=== PATIENT | female | born 1955 | race Caucasian/White ===

== ENCOUNTER → 2017-01-24 | Outpatient (CLI) | payer BC ==
[~2017-01-24] MED LIST: CALC-722 PO; HYDR1TAB PO; LVT.1T PO
[2017-01-24 11:40] LABS: THYROID STIMULATING HORMONE 0.02 UIU/ML (0.35-4.94)
== END ==
LOC: LAB 10:44
PROVIDERS: ATTEND Family Medicine
DX: E03.9 Hypothyroidism, unspecified (principal)
CPT/HCPCS: 36415; 84439; 84443

== ENCOUNTER → 2017-01-26 | Outpatient (CLI) | payer BC ==
--- NOTE | 2017-01-26 19:26 | Diagnostic Imaging Report ---
Bilateral screening mammogram The current study was also evaluated with a Computer Aided Detection (CAD) system. Indication: Screening. No current complaints stated on the questionnaire. COMPARISON: 11/26/15 FINDINGS: The breasts are composed of scattered fibroglandular densities. Minimal vascular calcifications are seen. Allowing for technique and positional differences, no suspicious change is seen. IMPRESSION: No significant change. ACR BI-RADS Category 2: Benign findings. Result letter will be mailed to the patient. Note: At least 10% of breast cancer is not imaged by mammography. Dictated by: Dictated on workstation # [id number]
== END ==
LOC: RAD 09:39
PROVIDERS: ATTEND Family Medicine
DX: Z12.31 Encounter for screening mammogram for malignant neoplasm of breast (principal)
CPT/HCPCS: 77067

== ENCOUNTER → 2017-02-20 | Outpatient (CLI) | payer BC ==
--- NOTE | 2017-02-20 12:46 | Diagnostic Imaging Report ---
INDICATION: Fall with chest injury. TECHNIQUE: PA and lateral views of the chest were obtained. FINDINGS: The heart size and pulmonary vascularity are within normal limits. There is no pneumothorax or consolidation. Surgical clips are seen in the neck and upper mediastinum. No pneumothorax, consolidation, or significant pleural fluid is identified. IMPRESSION: No acute abnormality is detected. Dictated by: Dictated on workstation # [id number]
--- NOTE | 2017-02-20 13:25 | Diagnostic Imaging Report ---
INDICATION: Fall with left rib injury. AP and oblique views of the left ribs are obtained. FINDINGS: No definite fracture is identified. There is no pneumothorax or significant pleural reaction. IMPRESSION: No radiographic evidence of displaced left rib fracture. Dictated by: Dictated on workstation # [id number]
== END ==
LOC: RAD 11:42
PROVIDERS: ATTEND Nurse Practitioner Family
DX: S29.9XXA Unspecified injury of thorax, initial encounter (principal); W19.XXXA Unspecified fall, initial encounter; Y99.8 Other external cause status
CPT/HCPCS: 71020; 71100

== ENCOUNTER → 2018-03-06 | Outpatient (CLI) | payer BC ==
--- NOTE | 2018-03-06 12:24 | Diagnostic Imaging Report ---
INDICATION: Routine screening. COMPARISON: 01/26/2017 and 11/26/2015. TECHNIQUE: 2D and 3D bilateral screening mammography was performed with CAD. FINDINGS: Both breasts are heterogeneously dense, limiting the sensitivity of mammography. The parenchymal pattern is stable. No mass or malignant appearing microcalcifications are seen. The axillae are unremarkable. IMPRESSION: No mammographic features suspicious for malignancy are identified. ACR BI-RADS Category 1: Negative. Result letter will be mailed to the patient. Note: At least 10% of breast cancer is not imaged by mammography. Dictated by: Dictated on workstation # [id number]
== END ==
LOC: RAD 08:38
PROVIDERS: ATTEND Family Medicine
DX: Z12.31 Encounter for screening mammogram for malignant neoplasm of breast (principal)
CPT/HCPCS: 77067

== ENCOUNTER 2018-08-29 11:52 | Emergency (ER) | payer BC ==
[~2018-08-29] VITALS: Ht 167.6 cm; Wt 77.1 kg
--- OUTSIDE RECORDS SUMMARY | 2018-08-29 12:05 | XMS REPORT | CCD ---
Author Author [facility]ill[facility] Mc[facility] Organization [facility] Address [address] [place] [address] Phone Care Team Providers Care Barrel Filler Head Name Role Phone PP Unavailable CCM Unavailable Summary Purpose Interface Exchange Insurance Providers Payer name Policy type / Coverage type Covered constitution party ID Effective Begin Date Effective End Date [facility] [id number] 2017 Unknown Family history Brother Diagnosis Age At Onset No Family Disease Entered N/A Son Diagnosis Age At Onset No Family Disease Entered N/A Mother Diagnosis Age At Onset No Family Disease Entered N/A Son Diagnosis Age At Onset No Family Disease Entered N/A Brother Diagnosis Age At Onset No Family Disease Entered N/A Sister Diagnosis Age At Onset No Family Disease Entered N/A Sister Diagnosis Age At Onset No Family Disease Entered N/A Sister Diagnosis Age At Onset No Family Disease Entered N/A Sister Diagnosis Age At Onset No Family Disease Entered N/A Brother Diagnosis Age At Onset No Family Disease Entered N/A Father Diagnosis Age At Onset No Family Disease Entered N/A Social History Social History Element Codes Description Effective Dates Marital status Unknown 07/18/2012 Number of children Unknown 2 07/18/2012 Employment Unknown Currently employed 07/18/[address]: 952136135 Never smoker 07/18/[address]: 293065949 Never drinks alcohol 07/18/2012 Allergies, Adverse Reactions, Alerts Substance Reaction Codes Entered Date Inactivated Date Status * NO KNOWN ENVIRONMENTAL ALLERGIES Unknown 07/18/2012 No Inactive Date Active * NO KNOWN FOOD ALLERGIES Unknown 07/18/2012 No Inactive Date Active Penicillin Unknown 03/19/2018 No Inactive Date Active Past Medical History Illness Codes Condition Status Onset Date Resolved Date Atrophy of thyroid (acquired) ICD-9: 244.8 ICD-10: E03.4 Active 03/19/2018 Unknown Encounter for general adult medical examination without abnormal findings ICD-9: V70.0 ICD-10: Z00.00 Active 10/04/2015 Unknown Encounter for screening mammogram for malignant neoplasm of breast ICD-9: V76.12 ICD-10: Z12.31 Active 11/24/2015 Unknown 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 ICD-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0 Active 10/04/2012 Unknown goiter Unknown Active 07/18/2012 Unknown GOITER ICD-9: 240.9 Active 07/18/2012 Unknown Problems Condition Codes Effective Dates Condition Status Atrophy of thyroid (acquired) ICD-9: 244.8 ICD-10: E03.4 03/19/2018 Active Encounter for general adult medical examination without abnormal findings ICD-9: V70.0 ICD-10: Z00.00 10/04/2015 Active Encounter for screening mammogram for malignant neoplasm of breast ICD-9: V76.12 ICD-10: Z12.31 11/24/2015 Active 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 ICD-10: E89.0 10/04/2012 Active Anemia, unspecified ICD-9: 285.9 ICD-10: D64.9 10/24/2017 Active Other vitamin B12 deficiency anemias ICD-9: 281.1 ICD-10: D51.8 10/24/2017 Active Pleurodynia ICD-9: 786.50 ICD-10: R07.81 02/20/2017 Active Unspecified cirrhosis of liver ICD-9: 571.5 ICD-10: K74.60 10/04/2012 Active OTH SCREENING MAMMOGRAM ICD-9: V76.12 12/03/2014 Active HYPOTHYROIDISM ICD-9: 244.9 10/10/2013 Active Hypothryroidism Unknown 10/04/2012 Active Cirrhosis ICD-9: 571.5 10/04/2012 Active POSTSURGICAL HYPOTHYROIDISM ICD-9: 244.0 10/04/2012 Active goiter Unknown 07/18/2012 Active GOITER ICD-9: 240.9 07/18/2012 Active Medications Medication Codes Instructions Start Date Stop Date Status Fill Instructions levothyroxine 125 mcg tablet RxNorm: 568148 1 Tablet(s) PO daily except on monday take 1/2 pill 03/19/2018 03/13/2019 Active naproxen 500 mg tablet RxNorm: 776993 1 Tablet(s) PO BID as needed 02/28/2017 No Stop Date Active levothyroxine 125 mcg tablet RxNorm: 545367 1 Tablet(s) PO daily 02/08/2017 02/02/2018 Inactive levothyroxine 150 mcg tablet RxNorm: 801987 1 Tablet(s) PO daily 07/08/2016 02/07/2017 Inactive levothyroxine 175 mcg tablet RxNorm: 498892 1 Tablet(s) PO daily 12/11/2015 07/07/2016 Inactive med increased levothyroxine 125 mcg tablet RxNorm: 655673 1 Tablet(s) PO daily 10/05/2015 12/10/2015 Inactive levothyroxine 125 mcg tablet RxNorm: 643426 1 Tablet(s) PO daily 08/11/2014 08/05/2015 Inactive levothyroxine 125 mcg tablet RxNorm: 721489 1 Tablet(s) PO daily 06/07/2013 06/01/2014 Inactive levothyroxine 125 mcg tablet RxNorm: 301119 1 Tablet(s) PO daily 05/30/2013 06/06/2013 Inactive levothyroxine 125 mcg tablet RxNorm: 494769 1 Tablet(s) PO daily 05/09/2013 05/29/2013 Inactive levothyroxine 125 mcg tablet RxNorm: 383446 1 Tablet(s) PO daily 05/09/2013 05/08/2013 Inactive levothyroxine 100 mcg tablet RxNorm: 072244 1 Tablet(s) PO daily 11/09/2012 05/09/2013 Inactive vitamin B12 200mcg [place], Suspension RxNorm: 1 [place] PO daily No Start Date Active vitamin E (dl, acetate) 400 unit capsule RxNorm: 612403 2 Capsule(s) PO daily No Start Date Active Vitamin C 1,000 mg tablet RxNorm: 793832 2 Tablet(s) PO daily No Start Date Active Vitamin D3 5,000 unit tablet RxNorm: 161238 1 Tablet(s) PO daily No Start Date Active Calcium Citrate + D 600 mg RxNorm: 2 Tablet(s) PO daily No Start Date Active Imuran 50 mg tablet RxNorm: 087016 2 Tablet(s) PO daily No Start Date Active naproxen 500 mg tablet RxNorm: 505762 1 Tablet(s) PO BID as needed No Start Date 02/27/2017 Inactive levothyroxine 100 mcg tablet RxNorm: 651734 1 Tablet(s) PO daily No Start Date 11/08/2012 Inactive Vitamin C & E capsule RxNorm: 1 Capsule(s) PO daily No Start Date 10/05/2015 Inactive Calcium 600 + D(3) 600 mg (1,500 mg)-400 unit tablet RxNorm: 737883 1 Tablet(s) PO TID No Start Date 10/05/2015 Inactive Medication Administered No Medication Administered data Immunizations No Immunization data Assessments Condition Codes Effective Dates Atrophy of thyroid (acquired) ICD-10: E03.4 ICD-9: 244.8 03/19/2018 Encounter for general adult medical examination without abnormal findings ICD-10: Z00.00 ICD-9: V70.0 03/19/2018 Encounter for screening mammogram for malignant neoplasm of breast ICD-10: Z12.31 ICD-9: V76.12 02/21/2018 Postprocedural hypothyroidism ICD-10: E89.0 ICD-9: 244.0 11/22/2017 Anemia, unspecified ICD-10: D64.9 ICD-9: 285.9 10/24/2017 Other vitamin B12 deficiency anemias ICD-10: D51.8 ICD-9: 281.1 10/24/2017 Syncope and collapse ICD-10: R55 ICD-9: 780.2 10/23/2017 Pleurodynia ICD-10: R07.81 ICD-9: 786.50 02/20/2017 Unspecified cirrhosis of liver ICD-10: K74.60 ICD-9: 571.5 10/05/2015 OTH SCREENING MAMMOGRAM ICD-9: V76.12 01/2015 HYPOTHYROIDISM ICD-9: 244.9 10/10/2013 Cirrhosis ICD-9: 571.5 10/04/2012 POSTSURGICAL HYPOTHYROIDISM ICD-9: 244.0 10/04/2012 GOITER ICD-9: 240.9 07/18/2012 Reason For Visit Reason For Visit Effective Dates Notes hypothyroid 03/19/2018 near-syncope/dizziness 11/22/2017 near-syncope/dizziness 10/23/2017 back pain 02/20/2017 hypothyroid 10/24/2016 hypothyroid 10/05/2015 hypothyroid 10/10/2013 hypothyroid 04/11/2013 Hospital Follow Up 10/04/2012 goiter 07/18/2012 Results Observation Observation Code Item Item Code Result Date Free T4 Fys320 FREE T4 1.75 ng/dL 03/16/2018 Tsh Ord6 TSH (3rd IS) 3.43 uIU/mL 03/16/2018 B12 [id number] B12 390.00 pg/ml 10/24/2017 Ferritin Ord22 FERRITIN 63.2 ng/mL 10/24/2017 Tibc Ord40 Iron 143 ug/dl 10/24/2017 Tibc Ord40 UIBC 160 ug/dL 10/24/2017 Tibc Ord40 TIBC 303 ug/dL 10/24/2017 Tibc Ord40 Fe-%Sat 47.2 % 10/24/2017 Tsh Ord6 TSH (3rd IS) 0.57 uIU/mL 10/23/2017 Comp Metabolic Odq294 NA 138 mEq/L 10/23/2017 Comp Metabolic Exv953 K 3.8 mEq/L 10/23/2017 Comp Metabolic Bym465 CL 105 mEq/L 10/23/2017 Comp Metabolic Fgw997 CO2 27.0 mEq/L 10/23/2017 Comp Metabolic Nmj531 ANION GAP 10 10/23/2017 Comp Metabolic Uen896 GLUCOSE 123 mg/dL 10/23/2017 Comp Metabolic Eun751 Creat 0.8 mg/dL 10/23/2017 Comp Metabolic Lze722 eGFR 77 ml/min/1.73m2 10/23/2017 Comp Metabolic Kyb969 BUN 13 mg/dL 10/23/2017 Comp Metabolic Wvl859 B/C Ratio 16.3 Ratio 10/23/2017 Comp Metabolic Nkd316 CALCIUM 8.4 mg/dL 10/23/2017 Comp Metabolic Utx823 ALK PHOS 170 U/L 10/23/2017 Comp Metabolic Zqs571 AST(SGOT) 56 U/L 10/23/2017 Comp Metabolic Bxk727 ALT(SGPT) 21 U/L 10/23/2017 Comp Metabolic Ieu756 BILI T 2.7 mg/dL 10/23/2017 Comp Metabolic Vpy679 ALBUMIN 2.9 g/dL 10/23/2017 Comp Metabolic Rkh473 TPRO 6.1 g/dL 10/23/2017 Comp Metabolic Onk956 GLOB 3.2 g/dL 10/23/2017 Comp Metabolic Ohp777 A/G Ratio 0.9 Ratio 10/23/2017 Comp Metabolic Tem016 Osmo 277 mOsmo 10/23/2017 Cbc With Differential Ord2 WBC 4.61 K/ul 10/23/2017 Cbc With Differential Ord2 RBC 3.11 M/ul 10/23/2017 Cbc With Differential Ord2 HGB 9.7 g/dl 10/23/2017 Cbc With Differential Ord2 HCT 30.0 % 10/23/2017 Cbc With Differential Ord2 Neut% 85.8 % 10/23/2017 Cbc With Differential Ord2 Lymph% 7.2 % 10/23/2017 Cbc With Differential Ord2 MCV 96.5 fl 10/23/2017 Cbc With Differential Ord2 [place]% 5.9 % 10/23/2017 Cbc With Differential Ord2 MCH 31.2 pg 10/23/2017 Cbc With Differential Ord2 Eos% 0.9 % 10/23/2017 Cbc With Differential Ord2 MCHC 32.3 pg 10/23/2017 Cbc With Differential Ord2 Baso% 0.2 % 10/23/2017 Cbc With Differential Ord2 PLT 98 K/ul 10/23/2017 Cbc With Differential Ord2 RDW 18.1 % 10/23/2017 Cbc With Differential Ord2 Neut ABS# 3.96 K/ul 10/23/2017 Cbc With Differential Ord2 Lymph ABS# 0.33 K/ul 10/23/2017 Cbc With Differential Ord2 [place] ABS# 0.3 K/ul 10/23/2017 Cbc With Differential Ord2 Eos ABS# 0.0 K/ul 10/23/2017 Cbc With Differential Ord2 Baso ABS# 0.0 K/ul 10/23/2017 Free T4 Ewv024 FREE T4 1.92 ng/dL 10/23/2017 Review of Systems System Result Effective Dates Constitutional No recent illness 2017 Constitutional No chills 03/19/2018 Constitutional No fatigue 03/19/2018 Constitutional No fever 03/19/2018 Constitutional No insomnia 03/19/2018 Constitutional No malaise 03/19/2018 Eyes No blindness 03/19/2018 Eyes No vision change 03/19/2018 Ears/Nose/Throat/Neck No dental pain Ears/Nose/Throat/Neck No dizziness 2017 Ears/Nose/Throat/Neck No dysphagia 2017 Ears/Nose/Throat/Neck No headache 2017 Ears/Nose/Throat/Neck No hearing loss Ears/Nose/Throat/Neck No nasal allergies 03/19/2018 Ears/Nose/Throat/Neck No sore throat Ears/Nose/Throat/Neck No postnasal drip 03/19/2018 Ears/Nose/Throat/Neck No sinus congestion 03/19/2018 Cardiovascular No chest pain/pressure Cardiovascular No dyspnea 03/19/2018 Cardiovascular No edema 03/19/2018 Cardiovascular No exercise intolerance Cardiovascular No fatigue 03/19/2018 Cardiovascular No near-syncope/dizziness 03/19/2018 Respiratory No chest tightness 2017 Respiratory No cigarette smoking 2017 Respiratory No cough 03/19/2018 Respiratory No dyspnea 03/19/2018 Respiratory No pedal edema 03/19/2018 Respiratory No snoring 03/19/2018 Respiratory No wheezing 03/19/2018 Gastrointestinal No hemorrhoids 2017 Gastrointestinal No abdominal pain 2017 Gastrointestinal No constipation 2017 Gastrointestinal No diarrhea 03/19/2018 Gastrointestinal No gastroesophageal reflux 03/19/2018 Gastrointestinal No melena 03/19/2018 Gastrointestinal No nausea 03/19/2018 Gastrointestinal No vomiting 03/19/2018 Genitourinary/Nephrology No dysuria 03/19 Genitourinary/Nephrology No nocturia Genitourinary/Nephrology No urinary incontinence 03/19/2018 Musculoskeletal No stiffness 03/19/2018 Musculoskeletal No swelling 03/19/2018 Musculoskeletal No muscle weakness 2017 Musculoskeletal No myalgias 03/19/2018 Dermatologic No rash 03/19/2018 Dermatologic No sores 03/19/2018 Dermatologic No scar 03/19/2018 Neurologic No dizziness 03/19/2018 Neurologic No headache 03/19/2018 Neurologic No neck pain 03/19/2018 Neurologic No syncope 03/19/2018 Psychiatric No anxiety 03/19/2018 Psychiatric No depression 03/19/2018 Constitutional weight gain 03/19/2018 Constitutional No recent illness 2017 Constitutional No chills 11/22/2017 Constitutional No diaphoresis 11/22/2017 Constitutional No fever 11/22/2017 Eyes No eye erythema 11/22/2017 Ears/Nose/Throat/Neck No nasal discharge 11/22/2017 Ears/Nose/Throat/Neck No nasal allergies 11/22/2017 Ears/Nose/Throat/Neck No dizziness 2017 Cardiovascular No chest pain/pressure Cardiovascular No dyspnea 11/22/2017 Respiratory No cough 11/22/2017 Respiratory No chest congestion 2017 Cardiovascular No syncope 11/22/2017 Cardiovascular No near-syncope/dizziness 11/22/2017 Cardiovascular No palpitations 2017 Gastrointestinal No abdominal pain 2017 Neurologic No alteration of consciousness 11/22/2017 Neurologic No mental status change 2017 Neurologic No dizziness 11/22/2017 Constitutional No recent illness 2017 Constitutional No chills 10/23/2017 Constitutional No diaphoresis 10/23/2017 Constitutional No fever 10/23/2017 Eyes No eye erythema 10/23/2017 Ears/Nose/Throat/Neck nasal discharge Ears/Nose/Throat/Neck nasal allergies Ears/Nose/Throat/Neck No sinus congestion 10/23/2017 Ears/Nose/Throat/Neck No sore throat Cardiovascular No chest pain/pressure Cardiovascular No dyspnea 10/23/2017 Cardiovascular near-syncope/dizziness Cardiovascular No palpitations 2017 Cardiovascular No syncope 10/23/2017 Respiratory No cough 10/23/2017 Respiratory No chest congestion 2017 Gastrointestinal No abdominal pain 2017 Gastrointestinal No constipation 2017 Gastrointestinal No diarrhea 10/23/2017 Gastrointestinal No vomiting 10/23/2017 Gastrointestinal No nausea 10/23/2017 Gastrointestinal No melena 10/23/2017 Gastrointestinal No hematochezia 2017 Genitourinary/Nephrology No dysuria 10/23 Musculoskeletal No joint complaint 2017 Dermatologic No rash 10/23/2017 Neurologic No alteration of consciousness 10/23/2017 Neurologic No mental status change 2017 Constitutional No recent illness 2016 Constitutional No chills 02/20/2017 Constitutional No diaphoresis 02/20/2017 Constitutional No fever 02/20/2017 Eyes No eye erythema 02/20/2017 Ears/Nose/Throat/Neck No nasal discharge 02/20/2017 Ears/Nose/Throat/Neck No nasal allergies 02/20/2017 Cardiovascular No chest pain/pressure Cardiovascular No dyspnea 02/20/2017 Respiratory No cough 02/20/2017 Respiratory No dyspnea 02/20/2017 Musculoskeletal joint complaint 2016 Dermatologic ecchymosis 02/20/2017 Neurologic No alteration of consciousness 02/20/2017 Neurologic No mental status change 2016 Constitutional No recent illness 2016 Constitutional No chills 10/24/2016 Constitutional No fatigue 10/24/2016 Constitutional No fever 10/24/2016 Constitutional No insomnia 10/24/2016 Constitutional No malaise 10/24/2016 Eyes No blindness 10/24/2016 Eyes No vision change 10/24/2016 Ears/Nose/Throat/Neck No dental pain Ears/Nose/Throat/Neck No dizziness 2016 Ears/Nose/Throat/Neck No dysphagia 2016 Ears/Nose/Throat/Neck No headache 2016 Ears/Nose/Throat/Neck No hearing loss Ears/Nose/Throat/Neck No nasal allergies 10/24/2016 Ears/Nose/Throat/Neck No sore throat Ears/Nose/Throat/Neck No postnasal drip 10/24/2016 Ears/Nose/Throat/Neck No sinus congestion 10/24/2016 Cardiovascular No chest pain/pressure Cardiovascular No dyspnea 10/24/2016 Cardiovascular No edema 10/24/2016 Cardiovascular No exercise intolerance Cardiovascular No fatigue 10/24/2016 Cardiovascular No near-syncope/dizziness 10/24/2016 Respiratory No chest tightness 2016 Respiratory No cigarette smoking 2016 Respiratory No cough 10/24/2016 Respiratory No dyspnea 10/24/2016 Respiratory No pedal edema 10/24/2016 Respiratory No snoring 10/24/2016 Respiratory No wheezing 10/24/2016 Gastrointestinal No hemorrhoids 2016 Gastrointestinal No abdominal pain 2016 Gastrointestinal No constipation 2016 Gastrointestinal No diarrhea 10/24/2016 Gastrointestinal No gastroesophageal reflux 10/24/2016 Gastrointestinal No melena 10/24/2016 Gastrointestinal No nausea 10/24/2016 Gastrointestinal No vomiting 10/24/2016 Genitourinary/Nephrology No dysuria 10/24 Genitourinary/Nephrology No nocturia Genitourinary/Nephrology No urinary incontinence 10/24/2016 Musculoskeletal No stiffness 10/24/2016 Musculoskeletal No swelling 10/24/2016 Musculoskeletal No muscle weakness 2016 Musculoskeletal No myalgias 10/24/2016 Dermatologic No rash 10/24/2016 Dermatologic No sores 10/24/2016 Dermatologic No scar 10/24/2016 Neurologic No dizziness 10/24/2016 Neurologic No headache 10/24/2016 Neurologic No neck pain 10/24/2016 Neurologic No syncope 10/24/2016 Psychiatric No anxiety 10/24/2016 Psychiatric No depression 10/24/2016 Constitutional No recent illness 2015 Constitutional No chills 10/05/2015 Constitutional No fatigue 10/05/2015 Constitutional No fever 10/05/2015 Constitutional No insomnia 10/05/2015 Constitutional No malaise 10/05/2015 Cardiovascular No chest pain/pressure 01/2016 Cardiovascular No dyspnea 10/05/2015 Cardiovascular No edema 10/05/2015 Cardiovascular No exercise intolerance Cardiovascular No fatigue 10/05/2015 Cardiovascular No near-syncope/dizziness 10/05/2015 Respiratory No chest tightness 2015 Respiratory No cigarette smoking 2015 Respiratory No cough 10/05/2015 Respiratory No dyspnea 10/05/2015 Respiratory No pedal edema 10/05/2015 Respiratory No snoring 10/05/2015 Respiratory No wheezing 10/05/2015 Gastrointestinal No hemorrhoids 2015 Gastrointestinal No abdominal pain 2015 Gastrointestinal No constipation 2015 Gastrointestinal No diarrhea 10/05/2015 Gastrointestinal No gastroesophageal reflux 10/05/2015 Gastrointestinal No melena 10/05/2015 Gastrointestinal No nausea 10/05/2015 Gastrointestinal No vomiting 10/05/2015 Dermatologic No rash 10/05/2015 Dermatologic No sores 10/05/2015 Dermatologic No scar 10/05/2015 Psychiatric No anxiety 10/05/2015 Psychiatric No depression 10/05/2015 Eyes No blindness 10/05/2015 Eyes No vision change 10/05/2015 Ears/Nose/Throat/Neck No dental pain 01/2016 Ears/Nose/Throat/Neck No dizziness 2015 Ears/Nose/Throat/Neck No dysphagia 2015 Ears/Nose/Throat/Neck No headache 2015 Ears/Nose/Throat/Neck No hearing loss 01/2016 Ears/Nose/Throat/Neck No nasal allergies 10/05/2015 Ears/Nose/Throat/Neck No sore throat 01/2016 Ears/Nose/Throat/Neck No postnasal drip 10/05/2015 Ears/Nose/Throat/Neck No sinus congestion 10/05/2015 Genitourinary/Nephrology No dysuria 10/04 Genitourinary/Nephrology No nocturia 01/2016 Genitourinary/Nephrology No urinary incontinence 10/05/2015 Musculoskeletal No stiffness 10/05/2015 Musculoskeletal No swelling 10/05/2015 Musculoskeletal No muscle weakness 2015 Musculoskeletal No myalgias 10/05/2015 Neurologic No dizziness 10/05/2015 Neurologic No headache 10/05/2015 Neurologic No neck pain 10/05/2015 Neurologic No syncope 10/05/2015 Constitutional No night sweats 2013 Constitutional No chills 10/10/2013 Constitutional fatigue 10/10/2013 Constitutional No fever 10/10/2013 Constitutional No weight loss 10/10/2013 Constitutional No weight gain 10/10/2013 Eyes No vision change 10/10/2013 Ears/Nose/Throat/Neck No dizziness 2013 Ears/Nose/Throat/Neck No headache 2013 Ears/Nose/Throat/Neck No nasal discharge 10/10/2013 Ears/Nose/Throat/Neck No sore throat Ears/Nose/Throat/Neck No neck swelling Ears/Nose/Throat/Neck No otalgia 2013 Cardiovascular No chest pain/pressure Cardiovascular No dyspnea 10/10/2013 Cardiovascular No palpitations 2013 Respiratory No cough 10/10/2013 Gastrointestinal No abdominal pain 2013 Gastrointestinal No constipation 2013 Gastrointestinal No diarrhea 10/10/2013 Gastrointestinal No hematochezia 2013 Gastrointestinal No nausea 10/10/2013 Gastrointestinal No vomiting 10/10/2013 Dermatologic No rash 10/10/2013 Dermatologic No sores 10/10/2013 Neurologic No dizziness 10/10/2013 Endocrine No polydipsia 10/10/2013 Endocrine No polyuria 10/10/2013 Genitourinary/Nephrology No dysuria 10/10 Genitourinary/Nephrology No nocturia Genitourinary/Nephrology No urinary incontinence 10/10/2013 Musculoskeletal No stiffness 10/10/2013 Musculoskeletal No swelling 10/10/2013 Musculoskeletal No muscle weakness 2013 Musculoskeletal No myalgias 10/10/2013 Psychiatric No anxiety 10/10/2013 Psychiatric No depression 10/10/2013 Constitutional fatigue 04/11/2013 Constitutional No night sweats 2012 Constitutional No chills 04/11/2013 Constitutional No fever 04/11/2013 Constitutional No weight loss 04/11/2013 Constitutional No weight gain 04/11/2013 Eyes No vision change 04/11/2013 Ears/Nose/Throat/Neck No dizziness 2012 Ears/Nose/Throat/Neck No headache 2012 Ears/Nose/Throat/Neck No sore throat 06/2013 Ears/Nose/Throat/Neck No nasal discharge 04/11/2013 Ears/Nose/Throat/Neck No otalgia 2012 Ears/Nose/Throat/Neck No neck swelling Cardiovascular edema 04/11/2013 Cardiovascular No palpitations 2012 Cardiovascular No dyspnea 04/11/2013 Cardiovascular No chest pain/pressure 06/2013 Respiratory No cough 04/11/2013 Gastrointestinal No abdominal pain 2012 Gastrointestinal No constipation 2012 Gastrointestinal No hematochezia 2012 Gastrointestinal No nausea 04/11/2013 Gastrointestinal No vomiting 04/11/2013 Gastrointestinal No diarrhea 04/11/2013 Dermatologic No rash 04/11/2013 Dermatologic No sores 04/11/2013 Neurologic No dizziness 04/11/2013 Endocrine No polydipsia 04/11/2013 Endocrine No polyuria 04/11/2013 Constitutional No recent illness 2012 Constitutional No chills 10/04/2012 Constitutional No fatigue 10/04/2012 Constitutional No fever 10/04/2012 Constitutional No insomnia 10/04/2012 Constitutional No malaise 10/04/2012 Cardiovascular No chest pain/pressure 01/2013 Cardiovascular No dyspnea 10/04/2012 Cardiovascular No edema 10/04/2012 Cardiovascular No exercise intolerance Cardiovascular No fatigue 10/04/2012 Cardiovascular No near-syncope/dizziness 10/04/2012 Respiratory No chest tightness 2012 Respiratory No cigarette smoking 2012 Respiratory No cough 10/04/2012 Respiratory No dyspnea 10/04/2012 Respiratory No pedal edema 10/04/2012 Respiratory No snoring 10/04/2012 Respiratory No wheezing 10/04/2012 Gastrointestinal No hemorrhoids 2012 Gastrointestinal No abdominal pain 2012 Gastrointestinal No constipation 2012 Gastrointestinal No diarrhea 10/04/2012 Gastrointestinal No gastroesophageal reflux 10/04/2012 Gastrointestinal No melena 10/04/2012 Gastrointestinal No nausea 10/04/2012 Gastrointestinal No vomiting 10/04/2012 Dermatologic No rash 10/04/2012 Dermatologic No scar 10/04/2012 Psychiatric No anxiety 10/04/2012 Psychiatric No depression 10/04/2012 Dermatologic sores 10/04/2012 Constitutional No recent illness 2011 Constitutional No chills 07/18/2012 Constitutional No fatigue 07/18/2012 Constitutional No fever 07/18/2012 Constitutional No insomnia 07/18/2012 Constitutional No malaise 07/18/2012 Eyes No blindness 07/18/2012 Eyes No vision change 07/18/2012 Ears/Nose/Throat/Neck No dental pain Ears/Nose/Throat/Neck No dizziness 2011 Ears/Nose/Throat/Neck No dysphagia 2011 Ears/Nose/Throat/Neck No headache 2011 Ears/Nose/Throat/Neck No hearing loss Ears/Nose/Throat/Neck No nasal allergies 07/18/2012 Ears/Nose/Throat/Neck No sore throat Ears/Nose/Throat/Neck No postnasal drip 07/18/2012 Ears/Nose/Throat/Neck No sinus congestion 07/18/2012 Ears/Nose/Throat/Neck hoarseness 2011 Cardiovascular No chest pain/pressure Cardiovascular No dyspnea 07/18/2012 Cardiovascular No edema 07/18/2012 Cardiovascular No exercise intolerance Cardiovascular No fatigue 07/18/2012 Cardiovascular No near-syncope/dizziness 07/18/2012 Respiratory No chest tightness 2011 Respiratory No cigarette smoking 2011 Respiratory No cough 07/18/2012 Respiratory No dyspnea 07/18/2012 Respiratory No pedal edema 07/18/2012 Respiratory No snoring 07/18/2012 Respiratory No wheezing 07/18/2012 Gastrointestinal No hemorrhoids 2011 Gastrointestinal No abdominal pain 2011 Gastrointestinal No constipation 2011 Gastrointestinal No diarrhea 07/18/2012 Gastrointestinal No gastroesophageal reflux 07/18/2012 Gastrointestinal No melena 07/18/2012 Gastrointestinal No nausea 07/18/2012 Gastrointestinal No vomiting 07/18/2012 Psychiatric No anxiety 07/18/2012 Psychiatric No depression 07/18/2012 Neurologic No dizziness 07/18/2012 Neurologic No headache 07/18/2012 Neurologic No neck pain 07/18/2012 Neurologic No syncope 07/18/2012 Musculoskeletal No stiffness 07/18/2012 Musculoskeletal No swelling 07/18/2012 Musculoskeletal No muscle weakness 2011 Musculoskeletal No myalgias 07/18/2012 Physical Exam Exam Name System Name Item Name Status Result Effective Dates Notes Full Exam - General 1994 Constitutional general appearance Development: well developed 03/19/2018 None Full Exam - General 1994 Constitutional general appearance Development: appears stated age 0803/19/2018 None Full Exam - General 1994 Constitutional general appearance Overall: well developed 03/19/2018 None Full Exam - General 1994 Constitutional general appearance Overall: in no acute distress 03/19/2018 None Full Exam - General 1994 Constitutional general appearance Overall: well nourished 03/19/2018 None Full Exam - General 1994 Constitutional general appearance Hygiene/Attention to Grooming: good hygiene 03/19/2018 None Full Exam - General 1994 Eyes conjunctiva /eyelids Overall: conjunctiva clear 03/19/2018 None Full Exam - General 1994 Eyes conjunctiva /eyelids Overall: cornea clear 03/19/2018 None Full Exam - General 1994 Eyes conjunctiva /eyelids Overall: eyelids normal 03/19/2018 None Full Exam - General 1994 Eyes pupils and irises Overall: pupils equal, round, reactive to light and accomodation 03/19/2018 None Full Exam - General 1994 Ears/Nose/Throat otoscopic exam Overall: external auditory canals clear 03/19/2018 None Full Exam - General 1994 Ears/Nose/Throat otoscopic exam Overall: tympanic membranes clear 03/19/2018 None Full Exam - General 1994 Ears/Nose/Throat lips/teeth/gingiva Overall: benign lips 03/19/2018 None Full Exam - General 1994 Ears/Nose/Throat lips/teeth/gingiva Overall: normal dentition 03/19/2018 None Full Exam - General 1994 Ears/Nose/Throat oral cavity/pharynx/larynx Overall: oral mucosa clear 03/19/2018 None Full Exam - General 1994 Ears/Nose/Throat oral cavity/pharynx/larynx Overall: oropharyngeal mucosa clear 03/19/2018 None Full Exam - General 1994 Ears/Nose/Throat oral cavity/pharynx/larynx Overall: hypopharynx benign 03/19/2018 None Full Exam - General 1994 Ears/Nose/Throat oral cavity/pharynx/larynx Overall: no masses 03/19/2018 None Full Exam - General 1994 Neck inspection of neck Overall: normal size 03/19/2018 None Full Exam - General 1994 Neck inspection of neck Appearance: surgical scarring 03/19/2018 None Full Exam - General 1994 Respiratory auscultation Overall: breath sounds clear bilaterally 03/19/2018 None Full Exam - General 1994 Respiratory respiratory effort/rhythm Overall: no retractions 03/19/2018 None Full Exam - General 1994 Respiratory respiratory effort/rhythm Overall: normal rate 03/19/2018 None Full Exam - General 1994 Cardiovascular extremities Overall: no clubbing 03/19/2018 None Full Exam - General 1994 Cardiovascular auscultation of heart Overall: regular rate 03/19/2018 None Full Exam - General 1994 Cardiovascular auscultation of heart Overall: normal heart sounds 03/19/2018 None Full Exam - General 1994 Cardiovascular auscultation of heart Overall: no murmurs 03/19/2018 None Full Exam - General 1994 Abdomen abdominal exam Overall: no tenderness 03/19/2018 None Full Exam - General 1994 Abdomen abdominal exam Overall: normal bowel sounds 03/19/2018 None Full Exam - General 1994 Lymphatic neck nodes Overall: anterior cervical chain benign 03/19/2018 None Full Exam - General 1994 Lymphatic neck nodes Overall: posterior cervical chain benign 03/19/2018 None Full Exam - General 1994 Musculoskeletal spine, ribs and pelvis Overall: spine benign 03/19/2018 None Full Exam - General 1994 Musculoskeletal spine, ribs and pelvis Overall: sacroiliac joint benign 03/19/2018 None Full Exam - General 1994 Musculoskeletal spine, ribs and pelvis Overall: good posture 03/19/2018 None Full Exam - General 1994 Musculoskeletal head and neck Overall: head atraumatic 03/19/2018 None Full Exam - General 1994 Musculoskeletal head and neck Overall: cervical spine benign 03/19/2018 None Full Exam - General 1994 Integument inspection of skin Overall: few scattered moles, no gross abnormalities 03/19/2018 None Full Exam - General 1994 Neurologic deep tendon reflexes Overall: deep tendon reflexes intact 03/19/2018 None Full Exam - General 1994 Neurologic cranial nerves Overall: crainial nerves 2 - 12 grossly intact 03/19/2018 None Full Exam - General 1994 Psychiatric orientation/consciousness Overall: oriented to person, place and time 03/19/2018 None Full Exam - General 1994 Psychiatric mood and affect Overall: normal mood and affect 03/19/2018 None Full Exam - General 1994 Psychiatric mood and affect Mood: happy 03/19/2018 None Full Exam - General 1994 Constitutional general appearance Overall: well developed 11/22/2017 None Full Exam - General 1994 Constitutional general appearance Overall: in no acute distress 11/22/2017 None Full Exam - General 1994 Constitutional general appearance Overall: well nourished 11/22/2017 None Full Exam - General 1994 Eyes conjunctiva /eyelids Overall: conjunctiva clear 11/22/2017 None Full Exam - General 1994 Eyes conjunctiva /eyelids Overall: cornea clear 11/22/2017 None Full Exam - General 1994 Eyes conjunctiva /eyelids Overall: eyelids normal 11/22/2017 None Full Exam - General 1994 Eyes pupils and irises Overall: pupils equal, round, reactive to light and accomodation 11/22/2017 None Full Exam - General 1994 Ears/Nose/Throat lips/teeth/gingiva Overall: benign lips 11/22/2017 None Full Exam - General 1994 Ears/Nose/Throat oral cavity/pharynx/larynx Overall: oral mucosa clear 11/22/2017 None Full Exam - General 1994 Ears/Nose/Throat oral cavity/pharynx/larynx Posterior Pharynx: clear post nasal drainage 11/22/2017 None Full Exam - General 1994 Respiratory auscultation Overall: breath sounds clear bilaterally 11/22/2017 None Full Exam - General 1994 Respiratory respiratory effort/rhythm Overall: no retractions 11/22/2017 None Full Exam - General 1994 Respiratory respiratory effort/rhythm Overall: normal rate 11/22/2017 None Full Exam - General 1994 Cardiovascular extremities Overall: no clubbing 11/22/2017 None Full Exam - General 1994 Cardiovascular auscultation of heart Overall: regular rate 11/22/2017 None Full Exam - General 1994 Cardiovascular auscultation of heart Overall: normal heart sounds 11/22/2017 None Full Exam - General 1994 Lymphatic neck nodes Overall: anterior cervical chain benign 11/22/2017 None Full Exam - General 1994 Lymphatic neck nodes Overall: posterior cervical chain benign 11/22/2017 None Full Exam - General 1994 Musculoskeletal head and neck Overall: head atraumatic 11/22/2017 None Full Exam - General 1994 Neurologic gait Overall: no ataxia, no unsteadiness 11/22/2017 None Full Exam - General 1994 Neurologic cranial nerves Overall: crainial nerves 2 - 12 grossly intact 11/22/2017 None Full Exam - General 1994 Neurologic motor Overall: normal bulk, tone 11/22/2017 None Full Exam - General 1994 Psychiatric orientation/consciousness Overall: oriented to person, place and time 11/22/2017 None Full Exam - General 1994 Psychiatric mood and affect Overall: normal mood and affect 11/22/2017 None Full Exam - General 1994 Constitutional general appearance Overall: well developed 10/23/2017 None Full Exam - General 1994 Constitutional general appearance Overall: in no acute distress 10/23/2017 None Full Exam - General 1994 Constitutional general appearance Overall: well nourished 10/23/2017 None Full Exam - General 1994 Eyes conjunctiva /eyelids Overall: conjunctiva clear 10/23/2017 None Full Exam - General 1994 Eyes conjunctiva /eyelids Overall: cornea clear 10/23/2017 None Full Exam - General 1994 Eyes conjunctiva /eyelids Overall: eyelids normal 10/23/2017 None Full Exam - General 1994 Eyes pupils and irises Overall: pupils equal, round, reactive to light and accomodation 10/23/2017 None Full Exam - General 1994 Ears/Nose/Throat otoscopic exam Overall: tympanic membranes clear 10/23/2017 None Full Exam - General 1994 Ears/Nose/Throat otoscopic exam Overall: external auditory canals clear 10/23/2017 None Full Exam - General 1994 Ears/Nose/Throat lips/teeth/gingiva Overall: benign lips 10/23/2017 None Full Exam - General 1994 Ears/Nose/Throat oral cavity/pharynx/larynx Posterior Pharynx: clear post nasal drainage 10/23/2017 None Full Exam - General 1994 Ears/Nose/Throat oral cavity/pharynx/larynx Overall: oral mucosa clear 10/23/2017 None Full Exam - General 1994 Respiratory respiratory effort/rhythm Overall: no retractions 10/23/2017 None Full Exam - General 1994 Respiratory respiratory effort/rhythm Overall: normal rate 10/23/2017 None Full Exam - General 1994 Respiratory auscultation Overall: breath sounds clear bilaterally 10/23/2017 None Full Exam - General 1994 Cardiovascular auscultation of heart Overall: regular rate 10/23/2017 None Full Exam - General 1994 Cardiovascular auscultation of heart Overall: normal heart sounds 10/23/2017 None Full Exam - General 1994 Abdomen abdominal exam Overall: normal bowel sounds 10/23/2017 None Full Exam - General 1994 Abdomen abdominal exam Overall: no tenderness 10/23/2017 None Full Exam - General 1994 Lymphatic neck nodes Overall: posterior cervical chain benign 10/23/2017 None Full Exam - General 1994 Lymphatic neck nodes Overall: anterior cervical chain benign 10/23/2017 None Full Exam - General 1994 Musculoskeletal head and neck Overall: head atraumatic 10/23/2017 None Full Exam - General 1994 Cardiovascular extremities Overall: no clubbing 10/23/2017 None Full Exam - General 1994 Cardiovascular inspection of carotid pulses Overall: strong, bilaterally equal, no bruits 10/23/2017 None Full Exam - General 1994 Neurologic cranial nerves Overall: crainial nerves 2 - 12 grossly intact 10/23/2017 None Full Exam - General 1994 Neurologic gait Overall: no ataxia, no unsteadiness 10/23/2017 None Full Exam - General 1994 Neurologic coordination Overall: no tremors 10/23/2017 None Full Exam - General 1994 Neurologic coordination Overall: no dysdiadochokinesis, no dysmetria 10/23/2017 None Full Exam - General 1994 Neurologic motor Overall: normal bulk, tone 10/23/2017 None Full Exam - General 1994 Psychiatric orientation/consciousness Overall: oriented to person, place and time 10/23/2017 None Full Exam - General 1994 Psychiatric mood and affect Overall: normal mood and affect 10/23/2017 None Full Exam - Orthopedics Constitutional general appearance Overall: well nourished 02/20/2017 None Full Exam - Orthopedics Constitutional general appearance Overall: well developed 02/20/2017 None Full Exam - Orthopedics Constitutional general appearance Overall: in no acute distress 02/20/2017 None Full Exam - Orthopedics Eyes conjunctiva/ eyelids Overall: conjunctiva clear 02/20/2017 None Full Exam - Orthopedics Eyes conjunctiva/ eyelids Overall: eyelids normal 02/20/2017 None Full Exam - Orthopedics Ears/Nose/Throat lips/teeth/gingiva Overall: benign lips 02/20/2017 None Full Exam - Orthopedics Ears/Nose/Throat oral cavity/pharynx/larynx Overall: oral mucosa clear 02/20/2017 None Full Exam - Orthopedics Respiratory respiratory effort/rhythm Overall: no retractions 02/20/2017 None Full Exam - Orthopedics Respiratory respiratory effort/rhythm Overall: normal rate 02/20/2017 None Full Exam - Orthopedics Respiratory auscultation Overall: breath sounds clear bilaterally 02/20/2017 None Full Exam - Orthopedics MS: spine/rib/pelvis insp & palp - S/R/P Ribs/trunk inspection: normal ribs and sternum 02/20/2017 Hematoma noted to left posterior ribs Full Exam - Orthopedics Psychiatric orientation/consciousness Overall: oriented to person, place and time 02/20/2017 None Full Exam - Orthopedics Psychiatric mood and affect Overall: normal mood and affect 02/20/2017 None Full Exam - Orthopedics Psychiatric appearance Overall: well-groomed, good eye contact 02/20/2017 None Full Exam - General 1994 Constitutional general appearance Development: well developed 10/24/2016 None Full Exam - General 1994 Constitutional general appearance Development: appears stated age 0310/24/2016 None Full Exam - General 1994 Constitutional general appearance Overall: well developed 10/24/2016 None Full Exam - General 1994 Constitutional general appearance Overall: in no acute distress 10/24/2016 None Full Exam - General 1994 Constitutional general appearance Overall: well nourished 10/24/2016 None Full Exam - General 1994 Constitutional general appearance Hygiene/Attention to Grooming: good hygiene 10/24/2016 None Full Exam - General 1994 Eyes conjunctiva /eyelids Overall: conjunctiva clear 10/24/2016 None Full Exam - General 1994 Eyes conjunctiva /eyelids Overall: cornea clear 10/24/2016 None Full Exam - General 1994 Eyes conjunctiva /eyelids Overall: eyelids normal 10/24/2016 None Full Exam - General 1994 Eyes pupils and irises Overall: pupils equal, round, reactive to light and accomodation 10/24/2016 None Full Exam - General 1994 Ears/Nose/Throat otoscopic exam Overall: external auditory canals clear 10/24/2016 None Full Exam - General 1994 Ears/Nose/Throat otoscopic exam Overall: tympanic membranes clear 10/24/2016 None Full Exam - General 1994 Ears/Nose/Throat lips/teeth/gingiva Overall: benign lips 10/24/2016 None Full Exam - General 1994 Ears/Nose/Throat lips/teeth/gingiva Overall: normal dentition 10/24/2016 None Full Exam - General 1994 Ears/Nose/Throat oral cavity/pharynx/larynx Overall: oral mucosa clear 10/24/2016 None Full Exam - General 1994 Ears/Nose/Throat oral cavity/pharynx/larynx Overall: oropharyngeal mucosa clear 10/24/2016 None Full Exam - General 1994 Ears/Nose/Throat oral cavity/pharynx/larynx Overall: hypopharynx benign 10/24/2016 None Full Exam - General 1994 Ears/Nose/Throat oral cavity/pharynx/larynx Overall: no masses 10/24/2016 None Full Exam - General 1994 Neck inspection of neck Overall: normal size 10/24/2016 None Full Exam - General 1994 Neck inspection of neck Appearance: surgical scarring 10/24/2016 None Full Exam - General 1994 Respiratory auscultation Overall: breath sounds clear bilaterally 10/24/2016 None Full Exam - General 1994 Respiratory respiratory effort/rhythm Overall: no retractions 10/24/2016 None Full Exam - General 1994 Respiratory respiratory effort/rhythm Overall: normal rate 10/24/2016 None Full Exam - General 1994 Cardiovascular extremities Overall: no clubbing 10/24/2016 None Full Exam - General 1994 Cardiovascular auscultation of heart Overall: regular rate 10/24/2016 None Full Exam - General 1994 Cardiovascular auscultation of heart Overall: normal heart sounds 10/24/2016 None Full Exam - General 1994 Cardiovascular auscultation of heart Overall: no murmurs 10/24/2016 None Full Exam - General 1994 Abdomen abdominal exam Overall: no tenderness 10/24/2016 None Full Exam - General 1994 Abdomen abdominal exam Overall: normal bowel sounds 10/24/2016 None Full Exam - General 1994 Lymphatic neck nodes Overall: anterior cervical chain benign 10/24/2016 None Full Exam - General 1994 Lymphatic neck nodes Overall: posterior cervical chain benign 10/24/2016 None Full Exam - General 1994 Musculoskeletal spine, ribs and pelvis Overall: spine benign 10/24/2016 None Full Exam - General 1994 Musculoskeletal spine, ribs and pelvis Overall: sacroiliac joint benign 10/24/2016 None Full Exam - General 1994 Musculoskeletal spine, ribs and pelvis Overall: good posture 10/24/2016 None Full Exam - General 1994 Musculoskeletal head and neck Overall: head atraumatic 10/24/2016 None Full Exam - General 1994 Musculoskeletal head and neck Overall: cervical spine benign 10/24/2016 None Full Exam - General 1994 Integument inspection of skin Overall: few scattered moles, no gross abnormalities 10/24/2016 None Full Exam - General 1994 Neurologic deep tendon reflexes Overall: deep tendon reflexes intact 10/24/2016 None Full Exam - General 1994 Neurologic cranial nerves Overall: crainial nerves 2 - 12 grossly intact 10/24/2016 None Full Exam - General 1994 Psychiatric orientation/consciousness Overall: oriented to person, place and time 10/24/2016 None Full Exam - General 1994 Psychiatric mood and affect Overall: normal mood and affect 10/24/2016 None Full Exam - General 1994 Psychiatric mood and affect Mood: happy 10/24/2016 None Full Exam - General 1994 Constitutional general appearance Overall: well developed 10/05/2015 None Full Exam - General 1994 Constitutional general appearance Overall: in no acute distress 10/05/2015 None Full Exam - General 1994 Constitutional general appearance Overall: well nourished 10/05/2015 None Full Exam - General 1994 Eyes pupils and irises Overall: pupils equal, round, reactive to light and accomodation 10/05/2015 None Full Exam - General 1994 Ears/Nose/Throat oral cavity/pharynx/larynx Overall: oral mucosa clear 10/05/2015 None Full Exam - General 1994 Ears/Nose/Throat oral cavity/pharynx/larynx Overall: oropharyngeal mucosa clear 10/05/2015 None Full Exam - General 1994 Ears/Nose/Throat oral cavity/pharynx/larynx Overall: no masses 10/05/2015 None Full Exam - General 1994 Neck inspection of neck Overall: normal size 10/05/2015 None Full Exam - General 1994 Respiratory auscultation Overall: breath sounds clear bilaterally 10/05/2015 None Full Exam - General 1994 Respiratory respiratory effort/rhythm Overall: no retractions 10/05/2015 None Full Exam - General 1994 Respiratory respiratory effort/rhythm Overall: normal rate 10/05/2015 None Full Exam - General 1994 Cardiovascular extremities Overall: no clubbing 10/05/2015 None Full Exam - General 1994 Cardiovascular auscultation of heart Overall: regular rate 10/05/2015 None Full Exam - General 1994 Cardiovascular auscultation of heart Overall: normal heart sounds 10/05/2015 None Full Exam - General 1994 Cardiovascular auscultation of heart Overall: no murmurs 10/05/2015 None Full Exam - General 1994 Psychiatric orientation/consciousness Overall: oriented to person, place and time 10/05/2015 None Full Exam - General 1994 Psychiatric mood and affect Overall: normal mood and affect 10/05/2015 None Full Exam - General 1994 Psychiatric mood and affect Mood: happy 10/05/2015 None Full Exam - General 1994 Constitutional general appearance Development: well developed 10/05/2015 None Full Exam - General 1994 Constitutional general appearance Development: appears stated age 0310/05/2015 None Full Exam - General 1994 Constitutional general appearance Hygiene/Attention to Grooming: good hygiene 10/05/2015 None Full Exam - General 1994 Eyes conjunctiva /eyelids Overall: conjunctiva clear 10/05/2015 None Full Exam - General 1994 Eyes conjunctiva /eyelids Overall: cornea clear 10/05/2015 None Full Exam - General 1994 Eyes conjunctiva /eyelids Overall: eyelids normal 10/05/2015 None Full Exam - General 1994 Ears/Nose/Throat otoscopic exam Overall: external auditory canals clear 10/05/2015 None Full Exam - General 1994 Ears/Nose/Throat otoscopic exam Overall: tympanic membranes clear 10/05/2015 None Full Exam - General 1994 Ears/Nose/Throat lips/teeth/gingiva Overall: benign lips 10/05/2015 None Full Exam - General 1994 Ears/Nose/Throat lips/teeth/gingiva Overall: normal dentition 10/05/2015 None Full Exam - General 1994 Ears/Nose/Throat oral cavity/pharynx/larynx Overall: hypopharynx benign 10/05/2015 None Full Exam - General 1994 Abdomen abdominal exam Overall: no tenderness 10/05/2015 None Full Exam - General 1994 Abdomen abdominal exam Overall: normal bowel sounds 10/05/2015 None Full Exam - General 1994 Lymphatic neck nodes Overall: anterior cervical chain benign 10/05/2015 None Full Exam - General 1994 Lymphatic neck nodes Overall: posterior cervical chain benign 10/05/2015 None Full Exam - General 1994 Musculoskeletal spine, ribs and pelvis Overall: spine benign 10/05/2015 None Full Exam - General 1994 Musculoskeletal spine, ribs and pelvis Overall: sacroiliac joint benign 10/05/2015 None Full Exam - General 1994 Musculoskeletal spine, ribs and pelvis Overall: good posture 10/05/2015 None Full Exam - General 1994 Musculoskeletal head and neck Overall: head atraumatic 10/05/2015 None Full Exam - General 1994 Musculoskeletal head and neck Overall: cervical spine benign 10/05/2015 None Full Exam - General 1994 Integument inspection of skin Overall: few scattered moles, no gross abnormalities 10/05/2015 None Full Exam - General 1994 Neurologic deep tendon reflexes Overall: deep tendon reflexes intact 10/05/2015 None Full Exam - General 1994 Neurologic cranial nerves Overall: crainial nerves 2 - 12 grossly intact 10/05/2015 None Full Exam - General 1994 Neck inspection of neck Appearance: surgical scarring 10/05/2015 None Full Exam - General 1994 Constitutional general appearance Overall: well developed 10/10/2013 None Full Exam - General 1994 Constitutional general appearance Overall: in no acute distress 10/10/2013 None Full Exam - General 1994 Constitutional general appearance Overall: well nourished 10/10/2013 None Full Exam - General 1994 Eyes conjunctiva /eyelids Overall: conjunctiva clear 10/10/2013 None Full Exam - General 1994 Eyes conjunctiva /eyelids Overall: cornea clear 10/10/2013 None Full Exam - General 1994 Eyes conjunctiva /eyelids Overall: eyelids normal 10/10/2013 None Full Exam - General 1994 Eyes pupils and irises Overall: pupils equal, round, reactive to light and accomodation 10/10/2013 None Full Exam - General 1994 Ears/Nose/Throat otoscopic exam Overall: external auditory canals clear 10/10/2013 None Full Exam - General 1994 Ears/Nose/Throat otoscopic exam Overall: tympanic membranes clear 10/10/2013 None Full Exam - General 1994 Ears/Nose/Throat oral cavity/pharynx/larynx Overall: oral mucosa clear 10/10/2013 None Full Exam - General 1994 Ears/Nose/Throat oral cavity/pharynx/larynx Overall: oropharyngeal mucosa clear 10/10/2013 None Full Exam - General 1994 Ears/Nose/Throat oral cavity/pharynx/larynx Overall: no masses 10/10/2013 None Full Exam - General 1994 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, Full Exam - General 1994 Respiratory auscultation Overall: breath sounds clear bilaterally 10/10/2013 None Full Exam - General 1994 Respiratory respiratory effort/rhythm Overall: no retractions 10/10/2013 None Full Exam - General 1994 Respiratory respiratory effort/rhythm Overall: normal rate 10/10/2013 None Full Exam - General 1994 Cardiovascular auscultation of heart Overall: regular rate 10/10/2013 None Full Exam - General 1994 Cardiovascular auscultation of heart Overall: normal heart sounds 10/10/2013 None Full Exam - General 1994 Cardiovascular auscultation of heart Overall: no murmurs 10/10/2013 None Full Exam - General 1994 Abdomen abdominal exam Overall: no tenderness 10/10/2013 None Full Exam - General 1994 Abdomen abdominal exam Overall: normal bowel sounds 10/10/2013 None Full Exam - General 1994 Lymphatic neck nodes Overall: anterior cervical chain benign 10/10/2013 None Full Exam - General 1994 Lymphatic neck nodes Overall: posterior cervical chain benign 10/10/2013 None Full Exam - General 1994 Integument inspection of skin Overall: no rash, lesions 10/10/2013 None Full Exam - General 1994 Psychiatric mood and affect Mood: happy 10/10/2013 None Full Exam - General 1994 Psychiatric mood and affect Overall: normal mood and affect 10/10/2013 None Full Exam - General 1994 Psychiatric orientation/consciousness Overall: oriented to person, place and time 10/10/2013 None Full Exam - General 1994 Neurologic cranial nerves Overall: crainial nerves 2 - 12 grossly intact 10/10/2013 None Full Exam - General 1994 Constitutional general appearance Overall: well nourished 04/11/2013 None Full Exam - General 1994 Constitutional general appearance Overall: well developed 04/11/2013 None Full Exam - General 1994 Constitutional general appearance Overall: in no acute distress 04/11/2013 None Full Exam - General 1994 Eyes conjunctiva /eyelids Overall: conjunctiva clear 04/11/2013 None Full Exam - General 1994 Eyes conjunctiva /eyelids Overall: eyelids normal 04/11/2013 None Full Exam - General 1994 Eyes conjunctiva /eyelids Overall: cornea clear 04/11/2013 None Full Exam - General 1994 Eyes pupils and irises Overall: pupils equal, round, reactive to light and accomodation 04/11/2013 None Full Exam - General 1995 Ears/Nose/Throat oral cavity/pharynx/larynx Overall: oropharyngeal mucosa clear 04/11/2013 None Full Exam - General 1995 Ears/Nose/Throat oral cavity/pharynx/larynx Overall: no masses 04/11/2013 None Full Exam - General 1995 Ears/Nose/Throat oral cavity/pharynx/larynx Overall: oral mucosa clear 04/11/2013 None Full Exam - General 1995 Ears/Nose/Throat otoscopic exam Overall: tympanic membranes clear 04/11/2013 None Full Exam - General 1995 Ears/Nose/Throat otoscopic exam Overall: external auditory canals clear 04/11/2013 None Full Exam - General 1994 Respiratory auscultation Overall: breath sounds clear bilaterally 04/11/2013 None Full Exam - General 1994 Respiratory respiratory effort/rhythm Overall: normal rate 04/11/2013 None Full Exam - General 1994 Respiratory respiratory effort/rhythm Overall: no retractions 04/11/2013 None Full Exam - General 1994 Cardiovascular auscultation of heart Overall: regular rate 04/11/2013 None Full Exam - General 1994 Cardiovascular auscultation of heart Overall: normal heart sounds 04/11/2013 None Full Exam - General 1994 Cardiovascular auscultation of heart Overall: no murmurs 04/11/2013 None Full Exam - General 1994 Abdomen abdominal exam Overall: no tenderness 04/11/2013 None Full Exam - General 1994 Abdomen abdominal exam Overall: normal bowel sounds 04/11/2013 None Full Exam - General 1994 Integument inspection of skin Overall: no rash, lesions 04/11/2013 None Full Exam - General 1994 Lymphatic neck nodes Overall: anterior cervical chain benign 04/11/2013 None Full Exam - General 1994 Lymphatic neck nodes Overall: posterior cervical chain benign 04/11/2013 None Full Exam - General 1994 Neck thyroid Size: absent gland 2012 surgically removed in August, Full Exam - General 1994 Constitutional general appearance Overall: well nourished 10/04/2012 None Full Exam - General 1994 Constitutional general appearance Overall: well developed 10/04/2012 None Full Exam - General 1994 Constitutional general appearance Overall: in no acute distress 10/04/2012 None Full Exam - General 1994 Eyes pupils and irises Overall: pupils equal, round, reactive to light and accomodation 10/04/2012 None Full Exam - General 1995 Ears/Nose/Throat oral cavity/pharynx/larynx Overall: oropharyngeal mucosa clear 10/04/2012 None Full Exam - General 1995 Ears/Nose/Throat oral cavity/pharynx/larynx Overall: no masses 10/04/2012 None Full Exam - General 1995 Ears/Nose/Throat oral cavity/pharynx/larynx Overall: oral mucosa clear 10/04/2012 None Full Exam - General 1994 Respiratory respiratory effort/rhythm Overall: normal rate 10/04/2012 None Full Exam - General 1994 Respiratory respiratory effort/rhythm Overall: no retractions 10/04/2012 None Full Exam - General 1995 Respiratory auscultation Overall: breath sounds clear bilaterally 10/04/2012 None Full Exam - General 1994 Cardiovascular auscultation of heart Overall: regular rate 10/04/2012 None Full Exam - General 1994 Cardiovascular auscultation of heart Overall: normal heart sounds 10/04/2012 None Full Exam - General 1994 Cardiovascular auscultation of heart Overall: no murmurs 10/04/2012 None Full Exam - General 1994 Cardiovascular extremities Overall: no clubbing 10/04/2012 None Full Exam - General 1994 Neck inspection of neck Overall: normal size 10/04/2012 None Full Exam - General 1994 Neck inspection of neck Lesions: raised 10/04/2012 surgical site Full Exam - General 1994 Psychiatric orientation/consciousness Overall: oriented to person, place and time 10/04/2012 None Full Exam - General 1994 Psychiatric mood and affect Mood: happy 10/04/2012 None Full Exam - General 1994 Psychiatric mood and affect Overall: normal mood and affect 10/04/2012 None Full Exam - General 1994 Neck thyroid Size: enlarged right lobe 07/18/2012 None Full Exam - General 1994 Neck thyroid Size: size 6 x 4.5 inches - depth not able to be measured. 07/18/2012 None Full Exam - General 1994 Cardiovascular auscultation of heart Overall: no murmurs 07/18/2012 None Full Exam - General 1994 Cardiovascular extremities Overall: no clubbing 07/18/2012 None Full Exam - General 1994 Abdomen abdominal exam Overall: no tenderness 07/18/2012 None Full Exam - General 1994 Abdomen abdominal exam Overall: normal bowel sounds 07/18/2012 None Full Exam - General 1994 Lymphatic neck nodes Overall: shotty lymphadenopathy 07/18/2012 None Full Exam - General 1994 Musculoskeletal digits and nails Overall: digits benign 07/18/2012 None Full Exam - General 1994 Musculoskeletal digits and nails Overall: no clubbing 07/18/2012 None Full Exam - General 1994 Musculoskeletal head and neck Overall: cervical spine benign 07/18/2012 None Full Exam - General 1994 Musculoskeletal head and neck Overall: head atraumatic 07/18/2012 None Full Exam - General 1994 Integument inspection of skin Overall: no rash, lesions 07/18/2012 None Full Exam - General 1994 Neurologic deep tendon reflexes Overall: deep tendon reflexes intact 07/18/2012 None Full Exam - General 1994 Neurologic cranial nerves Overall: crainial nerves 2 - 12 grossly intact 07/18/2012 None Full Exam - General 1994 Psychiatric orientation/consciousness Overall: oriented to person, place and time 07/18/2012 None Full Exam - General 1994 Psychiatric mood and affect Mood: happy 07/18/2012 None Full Exam - General 1994 Psychiatric mood and affect Overall: normal mood and affect 07/18/2012 None Full Exam - General 1994 Constitutional general appearance Overall: well nourished 07/18/2012 None Full Exam - General 1994 Constitutional general appearance Overall: well developed 07/18/2012 None Full Exam - General 1994 Constitutional general appearance Overall: in no acute distress 07/18/2012 None Full Exam - General 1994 Eyes pupils and irises Overall: pupils equal, round, reactive to light and accomodation 07/18/2012 None Full Exam - General 1994 Ears/Nose/Throat otoscopic exam Overall: tympanic membranes clear 07/18/2012 None Full Exam - General 1994 Ears/Nose/Throat otoscopic exam Overall: external auditory canals clear 07/18/2012 None Full Exam - General 1994 Ears/Nose/Throat oral cavity/pharynx/larynx Overall: oropharyngeal mucosa clear 07/18/2012 None Full Exam - General 1994 Ears/Nose/Throat oral cavity/pharynx/larynx Overall: no masses 07/18/2012 None Full Exam - General 1994 Ears/Nose/Throat oral cavity/pharynx/larynx Overall: oral mucosa clear 07/18/2012 None Full Exam - General 1994 Respiratory respiratory effort/rhythm Overall: normal rate 07/18/2012 None Full Exam - General 1994 Respiratory respiratory effort/rhythm Overall: no retractions 07/18/2012 None Full Exam - General 1994 Respiratory auscultation Overall: breath sounds clear bilaterally 07/18/2012 None Full Exam - General 1994 Cardiovascular auscultation of heart Overall: regular rate 07/18/2012 None Full Exam - General 1994 Cardiovascular auscultation of heart Overall: normal heart sounds 07/18/2012 None Procedures No Procedures data Vital Signs Date Vital 03/19/2018 Blood Pressure 1: 146/66 Code : 8480-6 BMI: 31.0 Code : 89041-8 Heart Rate 1 : 109 bpm Height: 5'5" SpO2: 98% Weight: 186 lbs 11/22/2017 Blood Pressure 1: 140/66 Code : 8480-6 BMI: 30.0 Code : 37958-3 Heart Rate 1 : 83 bpm Height: 5'5" SpO2: 98% Weight: 180 lbs 10/23/2017 Blood Pressure 1: 180/74 Code : 8480-6 Blood Pressure 1: 166/86 Code: 8480-6 BMI: 29.8 Code: 86729-1 Heart Rate 1: 99 bpm Height: 5'5" SpO2: 98% Weight: 179 lbs 02/20/2017 Blood Pressure 1: 152/62 Code : 8480-6 BMI: 29.8 Code : 57889-9 Heart Rate 1 : 77 bpm Height: 5'5" SpO2: 99% Weight: 179 lbs 10/24/2016 Blood Pressure 1: 138/72 Code : 8480-6 BMI: 30.6 Code : 44006-3 Height: 5'5" Weight: 184 lbs 10/05/2015 Blood Pressure 1: 138/78 Code : 8480-6 BMI: 32.6 Code : 81096-9 Heart Rate 1 : 89 bpm Height: 5'5" SpO2: 98% Weight: 196 lbs 10/10/2013 Blood Pressure 1: 132/82 Code : 8480-6 BMI: 31.5 Code : 09677-4 Heart Rate 1 : 84 bpm Height: 5'5" Weight: 189 lbs 04/11/2013 Blood Pressure 1: 128/68 Code : 8480-6 BMI: 31.6 Code : 58331-3 Heart Rate 1 : 80 bpm Height: 5'5" Weight: 190 lbs 10/04/2012 Blood Pressure 1: 138/80 Code : 8480-6 Heart Rate 1: 80 bpm Respiratory Rate : 20 bpm Weight: 173 lbs 07/18/2012 Blood Pressure 1: 118/68 Code : 8480-6 BMI: 30.1 Code : 24609-1 Heart Rate 1 : 84 bpm Height: 5'5" Respiratory Rate: 16 bpm Weight: 181 lbs Functional Status No Functional Status data History of Present Illness Symptom Name Status Result Effective Date Notes hypothyroid Quality chronic 03/19/2018 None hypothyroid Onset and Resolution ongoing 03/19/2018 None hypothyroid Alleviating Factors medication 03/19/2018 None hypothyroid Significant Medical Conditions surgery 03/19/2018 -total thyroidectomy weight gain/obesity Location globally 03/19/2018 None weight gain/obesity Quality worsening 03/19/2018 None weight gain/obesity Onset and Resolution gradual in onset 03/19/2018 None weight gain/obesity Significant Medical Conditions hypothyroidism 03/19/2018 None weight gain/obesity Frequency of Episodes increasing 03/19/2018 None weight gain/obesity Triggers unintentional weight gain 03/19/2018 None near-syncope/dizziness Quality fogginess 11/22/2017 None near-syncope/dizziness Quality intermittent 11/22/2017 None near-syncope/dizziness Quality lightheadedness 11/22/2017 None near-syncope/dizziness Limitation on Activities never results in syncope 11/22/2017 None near-syncope/dizziness Frequency of Episodes increasing 11/22/2017 None near-syncope/dizziness Significant Medical Conditions thyroid disease 11/22/2017 None near-syncope/dizziness Pertinent Findings Denies aphasia 11/22/2017 None near-syncope/dizziness Pertinent Findings Denies confusion 11/22/2017 None near-syncope/dizziness Pertinent Findings Denies dyspnea 11/22/2017 None near-syncope/dizziness Pertinent Findings Denies fever 11/22/2017 None near-syncope/dizziness Pertinent Findings Denies nausea 11/22/2017 None near-syncope/dizziness Pertinent Findings Denies palpitations 11/22/2017 None near-syncope/dizziness Pertinent Findings Denies syncope 11/22/2017 None near-syncope/dizziness Quality intermittent 10/23/2017 None near-syncope/dizziness Quality fogginess 10/23/2017 None near-syncope/dizziness Quality lightheadedness 10/23/2017 None near-syncope/dizziness Limitation on Activities never results in syncope 10/23/2017 None near-syncope/dizziness Frequency of Episodes increasing 10/23/2017 None near-syncope/dizziness Significant Medical Conditions thyroid disease 10/23/2017 None near-syncope/dizziness Pertinent Findings Denies fever 10/23/2017 None near-syncope/dizziness Pertinent Findings Denies dyspnea 10/23/2017 None near-syncope/dizziness Pertinent Findings Denies confusion 10/23/2017 None near-syncope/dizziness Pertinent Findings Denies nausea 10/23/2017 None near-syncope/dizziness Pertinent Findings Denies palpitations 10/23/2017 None near-syncope/dizziness Pertinent Findings Denies syncope 10/23/2017 None near-syncope/dizziness Pertinent Findings Denies aphasia 10/23/2017 None back pain Location in the left middle back area 02/20/2017 None back pain Quality constant 02/20/2017 None back pain Quality dull 02/20/2017 None back pain Quality aching 02/20/2017 None back pain Onset and Resolution sudden in onset 02/20/2017 None back pain Onset of Symptom 3 hours ago 02/20/2017 None hypothyroid Location at the level of the thyroid 10/24/2016 pt had thyroidectomy due to severe goiter. hypothyroid Quality chronic 10/24/2016 None hypothyroid Quality stable 10/24/2016 None hypothyroid Onset and Resolution ongoing 10/24/2016 None hypothyroid Severity mild with subclinical signs 10/24/2016 None hypothyroid Alleviating Factors medication 10/24/2016 None hypothyroid Pertinent Findings Denies coarse hair 10/24/2016 None hypothyroid Pertinent Findings Denies coarse skin 10/24/2016 None hypothyroid Pertinent Findings decreased energy 10/24/2016 None hypothyroid Pertinent Findings Denies cold intolerance 10/24/2016 None hypothyroid Pertinent Findings Denies dry skin 10/24/2016 None hypothyroid Pertinent Findings Denies hair loss 10/24/2016 None hypothyroid Pertinent Findings hoarseness 10/24/2016 None hypothyroid Location at the level of the thyroid 10/05/2015 pt had thyroidectomy due to severe goiter. hypothyroid Quality chronic 10/05/2015 None hypothyroid Quality stable 10/05/2015 None hypothyroid Onset and Resolution ongoing 10/05/2015 None hypothyroid Severity mild with subclinical signs 10/05/2015 None hypothyroid Alleviating Factors medication 10/05/2015 None hypothyroid Quality chronic 10/10/2013 None hypothyroid Quality stable 10/10/2013 None hypothyroid Location at the level of the thyroid 10/10/2013 pt had thyroidectomy due to severe goiter. hypothyroid Onset and Resolution ongoing 10/10/2013 None hypothyroid Severity mild with subclinical signs 10/10/2013 None hypothyroid Pertinent Findings Denies coarse hair 10/10/2013 None hypothyroid Pertinent Findings Denies coarse skin 10/10/2013 None hypothyroid Location at the level of the thyroid 04/11/2013 None hypothyroid Quality stable 04/11/2013 None hypothyroid Onset and Resolution ongoing 04/11/2013 None hypothyroid Severity mild with subclinical signs 04/11/2013 None hypothyroid Pertinent Findings Denies brittle nails 04/11/2013 None hypothyroid Pertinent Findings Denies coarse hair 04/11/2013 None hypothyroid Pertinent Findings Denies coarse skin 04/11/2013 None Hospital Follow Up Quality chronic illness 10/04/2012 None Hospital Follow Up Quality improving 10/04/2012 None Hospital Follow Up Severity mild 10/04/2012 None Hospital Follow Up Alleviating Factors medication 10/04/2012 pt on levothyroxine and is post-op surgical removal of very large goiter - pt had over 13cm wide thyroid gland - was negative from a pathologic standpoint. Pt is Pending MRI of her liver - pt waws diagnosed with cirrhosis - may be due to biliary tree abnormality. goiter Location on both sides 07/18/2012 None goiter Quality chronic 07/18/2012 None goiter Quality non-painful 07/18/2012 None goiter Quality worsening 07/18/2012 None goiter Onset and Resolution gradual in onset 07/18/2012 None goiter Goiter Stage 3: visible at a considerable distance 07/18/2012 None goiter Onset of Symptom 1979's 07/18/2012 None goiter Pertinent Findings Denies anxiety 07/18/2012 None goiter Pertinent Findings Denies change in bowel movements 07/18/2012 None goiter Pertinent Findings hoarseness 07/18/2012 None goiter Pertinent Findings Denies inspiratory stridor 07/18/2012 None goiter Pertinent Findings Denies memory impairment 07/18/2012 None goiter Pertinent Findings weight loss 07/18/2012 but it was intentional goiter Pertinent Findings Denies weakness 07/18/2012 None goiter Pertinent Findings Denies palpitations 07/18/2012 None goiter Pertinent Findings Denies recent illness 07/18/2012 None goiter Triggers no known associated factors 07/18/2012 None Advance Directives No Advance Directive data Encounters Encounter Performer Location Codes Date ([id number]) PREV VISIT EST AGE 40-64 Diagnosis: Encounter for general adult medical examination without abnormal findings[ICD10: Z00.00] Guillermina Mcneil MD, [facility] CPT-4: 21193 03/19/2018 [id number] EST. PATIENT, LEVEL IV Diagnosis: Postprocedural hypothyroidism[ICD10: E89.0] Dinora Mcneil MD, [facility] CPT-4: 35468 11/22/2017 51700 EST. PATIENT, LEVEL IV Diagnosis: Postprocedural hypothyroidism[ICD10: E89.0] Diagnosis: Syncope and collapse[ICD10: R55] Dinora Mcneil MD, [facility] CPT- 4: 96197 10/23/2017 85627 EST. PATIENT, LEVEL III Diagnosis: Pleurodynia[ICD10: R07.81] Dinora Mcneil MD, [facility] CPT-4 : 32748 02/20/2017 ([id number]) PREV VISIT EST AGE 40-64 Diagnosis: Encounter for general adult medical examination without abnormal findings[ICD10: Z00.00] Diagnosis: Encounter for screening mammogram for malignant neoplasm of breast[ ICD10: Z12.31] Guillermina Mcneil MD, [facility] CPT-4: 66463 10/24/2016 ([id number]) PREV VISIT EST AGE 40-64 Diagnosis: Encounter for general adult medical examination without abnormal findings[ICD10: Z00.00] Guillermina Mcneil MD, [facility] CPT-4: 54400 10/05/2015 ([id number]) 83698 EST. PATIENT, LEVEL III Diagnosis: HYPOTHYROIDISM[ICD9: 244.9] Guillermina Mcneil MD, [facility] CPT- 4: 27788 10/10/2013 ([id number]) 17177 EST. PATIENT, LEVEL III Diagnosis: HYPOTHYROIDISM[ICD9: 244.9] Guillermina Mcneil MD, [facility] CPT- 4: 21024 04/11/2013 ([id number]) 65064 EST. PATIENT, LEVEL III Diagnosis: Hypothyroid[ICD9: 244.9] Diagnosis: POSTSURGICAL HYPOTHYROIDISM[ICD9: 244.0] Diagnosis: Cirrhosis[ICD9: 571.5] Guillermina Mcneil MD, [facility] CPT-4: 79808 10/04/2012 ([id number]) OFFICE VISIT, NEW - LEVEL 3 Diagnosis: GOITER[ICD9: 240.9] [facility] CPT-4: 59704 07/18/2012 Plan of Care Planned Activity Notes Codes Status Date Visit Plan: Well Adult - pt was counseled about diet, exercise, and encouraged to follow a heart healthy diet and increase activity level. The patient was instructed to RTC yearly for well adult exams and PRN for acute illnesses. The pt was also instructed to have yearly labs for check of cholesterol, thyroid, chem panel, CBC, and renal functioning. Hypothyroidism - pt with chronic hypothyroidism, continue with current medication, will monitor pt to signs or symptoms of lack of adequate supplementation. Pt is to continue with current dose of medication unless directed otherwise. Check labs at regular intervals wither q 3 months or q 6 months based on previous levels of control. 03/19/2018 Patient Education: Patient Medication Summary Completed 03/19/2018 Patient Education: Patient Medication Summary Completed 02/21/2018 Care Plan: SCREENINGMAMMOGRAPHYDIGITAL LOINC : 62259-6 Pending 02/21/2018 Visit Plan: Hypothyroidism - pt with chronic hypothyroidism , continue with current medication, will monitor pt to signs or symptoms of lack of adequate supplementation. Pt is to continue with current dose of medication unless directed otherwise. Check labs at regular intervals wither q 3 months or q 6 months based on previous levels of control. 11/22/2017 Appointment: Dinora Lassiter WPtel: [address] [place], [place] [id number] (30 min) [facility] 11/22/2017 Patient Education: Patient Medication Summary Completed 11/22/2017 Patient Education: Patient Medication Summary Completed 10/24/2017 Care Plan: Iron Pending 10/24/2017 Visit Plan: Hypothyroidism - pt with chronic hypothyroidism , continue with current medication, will monitor pt to signs or symptoms of lack of adequate supplementation. Pt is to continue with current dose of medication unless directed otherwise. Check labs at regular intervals wither q 3 months or q 6 months based on previous levels of control. Near syncope - Pt states that this has been ongoing and intermittent - will check labs, will have pt increase her fluid intake and add a protein snack in the evening times. Pt is to notify clinic if symptoms do not improve, if they worsen, or with any changes, questions, or concerns. 10/23/2017 Appointment: Dinora Lassiter WPtel: [id number] ([facility] Complex 10/23/2017 Patient Education: Patient Medication Summary Completed 10/23/2017 Visit Plan: Left rib pain - post fall - pt is to get X-ray - pt instructed on turn, cough, and deep breathing - educated on risks of pneumonia and other risks - The pt is to use prn antiinflammatories to manage acute pain. The patient is to call the office if the pain is worsening or does not improve. 02/20/2017 Appointment: Dinora Lassiter WPtel: [phone] [id number] (30 min) Complex 02/20/2017 Patient Education: Patient Medication Summary Completed 02/20/2017 Patient Education: Obesity Completed 02/20/2017 Visit Plan: Well Adult - pt was counseled about diet, exercise, and encouraged to follow a heart healthy diet and increase activity level. The patient was instructed to RTC yearly for well adult exams and PRN for acute illnesses. The pt was also instructed to have yearly labs for check of cholesterol, thyroid, chem panel, CBC, and renal functioning. 10/24/2016 Appointment: [facility] [phone] [id number] (15 min) Moderate 10/24/2016 Patient Education: Patient Medication Summary Completed 10/24/2016 Patient Education: Obesity Completed 10/24/2016 Appointment: [facility]illerm[facility] Mcneil [facility]el[facility] [phone] [id number] (15 min) Moderate 10/03/2016 Patient Education: Patient Medication Summary Completed 11/25/2015 Visit Plan: Well Adult - pt was counseled about diet, exercise, and encouraged to follow a heart healthy diet and increase activity level. The patient was instructed to RTC yearly for well adult exams and PRN for acute illnesses. The pt was also instructed to have yearly labs for check of cholesterol, thyroid, chem panel, CBC, and renal functioning. 10/05/2015 Patient Education: Patient Medication Summary Completed 10/05/2015 Patient Education: Patient Medication Summary Completed 12/04/2014 Visit Plan: Hypothyroidism - pt with chronic hypothyroidism , continue with current medication, will monitor pt to signs or symptoms of lack of adequate supplementation. Pt is to continue with current dose of medication unless directed otherwise. Check labs at regular intervals wither q 3 months or q 6 months based on previous levels of control. 10/10/2013 Appointment: Guillermina Mcneil WPtel: [address] [place], [place] [phone] Follow up 10/10/2013 Patient Education: Patient Medication Summary Completed 10/10/2013 Visit Plan: Hypothyroidism - pt with chronic hypothyroidism , continue with current medication, will monitor pt to signs or symptoms of lack of adequate supplementation. Pt is to continue with current dose of medication unless directed otherwise. Check labs at regular intervals wither q 3 months or q 6 months based on previous levels of control. 04/11/2013 Appointment: Guillermina Mcneil WPtel: [address] [place], [place] [phone] Follow up 04/11/2013 Patient Education: Patient Medication Summary Completed 04/11/2013 Appointment: Guillermina Mcneil WPtel: [address] [place], [place] [phone] Follow up 04/04/2013 Visit Plan: Hypothyroid - post surgically - pt to have thyroid labs checked - will monitor her TSH and Free T4 - supplement as needed, will also follow her calcium levels. Cirrhosis - pt to have MRI tomorrow - will monitor her liver enzymes as well. Pt is doing quite well post-operatively. 10/04/2012 Appointment: Guillermina Mcneil WPtel: [address] [place], [place] [phone] Follow up 10/04/2012 Patient Education: Patient Medication Summary Completed 10/04/2012 Visit Plan: Large goiter - plan for the pt to have a CT scan of the neck and referral to Dr. Cowan for evaluation of the pt's neck/ thyroid. Pt reports a history of elevated liver enzymes, will check a ful chem panel, CBC, thyroid studies, etc and call pt with results of the testing once we having the reports. 07/18/2012 Appointment: Guillermina Mcneil WPtel: [address] [place], [place] [phone] New Patient 07/18/2012 Patient Education: Patient Medication Summary Completed 07/18/2012 Instructions Comment . Large goiter - plan for the pt to have a CT scan of the neck and referral to Dr. Cowan for evaluation of the pt's neck/thyroid. Pt reports a history of elevated liver enzymes, will check a ful chem panel, CBC, thyroid studies, etc and call pt with results of the testing once we having the reports. . Hypothyroid - post surgically - pt to have thyroid labs checked - will monitor her TSH and Free T4 - supplement as needed, will also follow her calcium levels. Cirrhosis - pt to have MRI tomorrow - will monitor her liver enzymes as well. Pt is doing quite well post-operatively. increase fluid intake protein snack before bed. . Hypothyroidism - pt with chronic hypothyroidism, continue with current medication, will monitor pt to signs or symptoms of lack of adequate supplementation. Pt is to continue with current dose of medication unless directed otherwise. Check labs at regular intervals wither q 3 months or q 6 months based on previous levels of control. Near syncope - Pt states that this has been ongoing and intermittent - will check labs, will have pt increase her fluid intake and add a protein snack in the evening times. Pt is to notify clinic if symptoms do not improve, if they worsen, or with any changes, questions, or concerns. . Well Adult - pt was counseled about diet, exercise, and encouraged to follow a heart healthy diet and increase activity level. The patient was instructed to RTC yearly for well adult exams and PRN for acute illnesses. The pt was also instructed to have yearly labs for check of cholesterol, thyroid, chem panel, CBC, and renal functioning. . Hypothyroidism - pt with chronic hypothyroidism, continue with current medication, will monitor pt to signs or symptoms of lack of adequate supplementation. Pt is to continue with current dose of medication unless directed otherwise. Check labs at regular intervals wither q 3 months or q 6 months based on previous levels of control. . Left rib pain - post fall - pt is to get X-ray - pt instructed on turn, cough, and deep breathing - educated on risks of pneumonia and other risks - The pt is to use prn antiinflammatories to manage acute pain. The patient is to call the office if the pain is worsening or does not improve. . Well Adult - pt was counseled about diet, exercise, and encouraged to follow a heart healthy diet and increase activity level. The patient was instructed to RTC yearly for well adult exams and PRN for acute illnesses. The pt was also instructed to have yearly labs for check of cholesterol, thyroid, chem panel, CBC, and renal functioning. Hypothyroidism - pt with chronic hypothyroidism, continue with current medication, will monitor pt to signs or symptoms of lack of adequate supplementation. Pt is to continue with current dose of medication unless directed otherwise. Check labs at regular intervals wither q 3 months or q 6 months based on previous levels of control. . Well Adult - pt was counseled about diet, exercise, and encouraged to follow a heart healthy diet and increase activity level. The patient was instructed to RTC yearly for well adult exams and PRN for acute illnesses. The pt was also instructed to have yearly labs for check of cholesterol, thyroid, chem panel, CBC, and renal functioning. . Hypothyroidism - pt with chronic hypothyroidism, continue with current medication, will monitor pt to signs or symptoms of lack of adequate supplementation. Pt is to continue with current dose of medication unless directed otherwise. Check labs at regular intervals wither q 3 months or q 6 months based on previous levels of control. . Hypothyroidism - pt with chronic hypothyroidism, continue with current medication, will monitor pt to signs or symptoms of lack of adequate supplementation. Pt is to continue with current dose of medication unless directed otherwise. Check labs at regular intervals wither q 3 months or q 6 months based on previous levels of control.
--- OUTSIDE RECORDS SUMMARY | 2018-08-29 12:06 | XMS REPORT | Continuity of Care Document ---
Author Author [facility] Organization [facility] Address Unknown Phone Unavailable Allergies Active Description Code Type Severity Reaction Onset Reported/Identified Relationship to Patient Clinical Status Yes PCN PCN Mild NAUSEA AND VOMI 08/09/2012 Medications There is no data. Problems Date Dx Coded Attending Type Code Diagnosis Diagnosed By 08/09/2012 Ot V16.0 FAMILY HX-GI MALIGNANCY 08/09/2012 Ot V76.51 SCREEN MAL NEOP-COLON 08/27/2012 Ot 079.99 VIRAL INFECTION NOS 08/27/2012 Ot 462 ACUTE PHARYNGITIS 08/27/2012 Ot 786.2 COUGH 09/20/2012 Ot 241.1 NONTOX MULTINODUL GOITER 09/20/2012 Ot 245.2 CHR LYMPHOCYT THYROIDIT 09/20/2012 Ot 275.41 HYPOCALCEMIA 09/20/2012 Ot 285.9 ANEMIA NOS 09/20/2012 Ot 571.5 CIRRHOSIS OF LIVER NOS 09/20/2012 Ot V03.82 PROPHYLACTIC VACC AGAINST STREPTOCOCCUS 09/20/2012 Ot V04.81 ND FOR PROPHYLACTIC VACCIN AND INOCULATI 09/20/2012 Ot V16.0 FAMILY HX-GI MALIGNANCY 08/06/2013 ADAMARIS FRIEDMAN MD Ot 571.42 AUTOIMMUNE HEPATITIS 08/06/2013 ADAMARIS FRIEDMAN MD Ot 571.5 CIRRHOSIS OF LIVER NOS 07/02/2014 Ot 571.42 07/02/2014 Ot 571.5 07/02/2014 Ot 571.42 07/02/2014 Ot 571.5 02/15/2015 Ot 241.0 02/15/2015 Ot 240.9 02/15/2015 Ot 240.9 02/15/2015 Ot 790.4 02/15/2015 Ot V72.84 02/15/2015 Ot 790.4 02/15/2015 Ot V58.61 02/15/2015 Ot V58.83 02/15/2015 Ot 241.0 02/15/2015 Ot 240.9 02/15/2015 Ot V72.63 02/15/2015 Ot V72.81 02/15/2015 Ot V74.8 02/15/2015 Ot 571.5 02/15/2015 Ot 571.49 02/15/2015 Ot V76.12 02/15/2015 IDALIA LEAVITT, ADAMARIS P Ot 571.49 02/15/2015 IDALIA LEAVITT, ADAMARIS P Ot 571.49 02/15/2015 IDALIA LEAVITT, ADAMARIS P Ot 571.49 02/15/2015 IDALIA LEAVTIT, ADAMARIS P Ot 790.4 02/15/2015 CUONG LEAVITT, ASHUTOSH A Ot 244.9 02/15/2015 CUONG LEAVITT, ASHUTOSH A Ot 244.9 02/15/2015 CUONG LEAVITT, ASHUTOSH A Ot V58.69 02/15/2015 IDALIA LEAVITT, ADAMARIS P Ot 571.42 02/15/2015 IDALIA LEAVITT, ADAMARIS P Ot 571.5 02/15/2015 CUONG LEAVITT, ASHUTOSH A Ot V76.12 02/15/2015 IDALIA LEAVITT, ADAMARIS P Ot 571.42 02/15/2015 IDALIA LEAVITT, ADAMARIS P Ot 571.5 02/15/2015 Ot 241.0 02/15/2015 Ot 240.9 02/15/2015 Ot 240.9 02/15/2015 Ot 790.4 02/15/2015 Ot V72.84 02/15/2015 Ot 790.4 02/15/2015 Ot V58.61 02/15/2015 Ot V58.83 02/15/2015 Ot 241.0 02/15/2015 Ot 240.9 02/15/2015 Ot V72.63 02/15/2015 Ot V72.81 02/15/2015 Ot V74.8 02/15/2015 Ot 571.5 02/15/2015 Ot 571.49 02/15/2015 Ot V76.12 02/15/2015 IDALIA LEAVITT, ADAMARIS P Ot 571.49 02/15/2015 IDALIA LEAVITT, ADAMARIS P Ot 571.49 02/15/2015 IDALIA LEAVITT, ADAMARIS P Ot 571.49 02/15/2015 IDALIA LEAVITT, ADAMARIS P Ot 790.4 02/15/2015 CUONG LEAVITT, ASHUTOSH A Ot 244.9 02/15/2015 CUONG LEAVITT, ASHUTOSH Schmidt Ot 244.9 02/15/2015 CUONG LEAVITT, ASHUTOSH Schmidt Ot V58.69 02/15/2015 IDALIA LEAVITT, ADAMARIS P Ot 571.42 02/15/2015 IDALIA LEAVITT, ADAMARIS P Ot 571.5 02/15/2015 CUONG LEAVITT, ASHUTOSH Schmidt Ot V76.12 02/15/2015 IDALIA LEAVITT, ADAMARIS P Ot 571.42 02/15/2015 IDALIA LEAVITT, ADAMARIS P Ot 571.5 02/21/2015 IDALIA LEAVITT, ADAMARIS P Ot 571.5 02/23/2015 IDALIA LEAVITT, ADAMARIS P Ot 571.5 02/23/2015 IDALIA LEAVITT, ADAMARIS P Ot 571.5 03/11/2015 IDALIA LEAVITT, ADAMARIS P Ot 571.5 11/25/2015 CUONG LEAVITT, ASHUTOSH Schmidt Ot E89.0 POSTPROCEDURAL HYPOTHYROIDISM 11/25/2015 COUNG LEAVITT, ASHUTOSH Schmidt Ot K74.60 UNSPECIFIED CIRRHOSIS OF LIVER 11/26/2015 Ot 241.0 NONTOX UNINODULAR GOITER 11/26/2015 Ot 240.9 GOITER NOS 11/26/2015 Ot 240.9 GOITER NOS 11/26/2015 Ot 790.4 ELEV TRANSAMINASE/LDH 11/26/2015 Ot V72.84 EXAM PRE- OPERATIVE NOS 11/26/2015 Ot 790.4 ELEV TRANSAMINASE/LDH 11/26/2015 Ot V58.61 ANTICOAGULANTS,LT,CURRENT USE 11/26/2015 Ot V58.83 ENCOUNTER FOR THERAPEUTIC DRUG MONITORIN 11/26/2015 Ot 241.0 NONTOX UNINODULAR GOITER 11/26/2015 Ot 240.9 GOITER NOS 11/26/2015 Ot V72.63 PRE- PROCEDURAL LABORATORY EXAMINATION 11/26/2015 Ot V72.81 EXAM-PRE- OPERATIVE CARDIOVASCULAR 11/26/2015 Ot V74.8 SCREEN- BACTERIAL DIS NEC 11/26/2015 Ot 571.5 CIRRHOSIS OF LIVER NOS 11/26/2015 Ot 571.49 CHRONIC HEPATITIS NEC 11/26/2015 Ot V76.12 OTH SCREEN MAMMO-MALIGN NEOPLASM OF [place]HA[place]A 11/26/2015 IDALIA LEAVITT, ADAMARIS P Ot 571.49 CHRONIC HEPATITIS NEC 11/26/2015 IDALIA LEAVITT, ADAMARIS P Ot 571.49 CHRONIC HEPATITIS NEC 11/26/2015 IDALIA LEAVITT, ADAMARIS P Ot 571.49 CHRONIC HEPATITIS NEC 11/26/2015 IDALIA LEAVITT, ADAMARIS Collins Ot 790.4 ELEV TRANSAMINASE/LDH 11/26/2015 ASHUTOSH HUTCHINS MD Ot 244.9 HYPOTHYROIDISM NOS 11/26/2015 ASHUTOSH HUTCHINS MD Ot 244.9 HYPOTHYROIDISM NOS 11/26/2015 ASHUTOSH HUTCHINS MD Ot V58.69 OTH MED,LT,CURRENT USE 11/26/2015 IDALIA LEAVITT, ADAMARIS Collins Ot 571.42 AUTOIMMUNE HEPATITIS 11/26/2015 ADAMARIS FRIEDMAN MD Ot 571.5 CIRRHOSIS OF LIVER NOS 11/26/2015 ASHUTOSH HUTCHINS MD Ot V76.12 OTH SCREEN MAMMO-MALIGN NEOPLASM OF [place]A 11/26/2015 ADAMARIS FRIEDMAN MD Ot 571.42 AUTOIMMUNE HEPATITIS 11/26/2015 ADAMARIS FRIEDMAN MD Ot 571.5 CIRRHOSIS OF LIVER NOS 11/26/2015 ADAMARIS FRIEDMAN MD Ot 571.5 CIRRHOSIS OF LIVER NOS 11/26/2015 ASHUTOSH HUTCHINS MD Ot E89.0 POSTPROCEDURAL HYPOTHYROIDISM 11/26/2015 ASHUTOSH HUTCHINS MD Ot K74.60 UNSPECIFIED CIRRHOSIS OF LIVER 11/26/2015 ADAMARIS FRIEDMAN MD Ot K74.60 UNSPECIFIED CIRRHOSIS OF LIVER 11/27/2015 PARAG RUIZ RN FIRST ASSISTANT Ot Z12.31 ENCNTR SCREEN MAMMOGRAM FOR MALIGNANT NE 11/27/2015 PARAG RUIZ RN FIRST ASSISTANT Ot Z12.31 ENCNTR SCREEN MAMMOGRAM FOR MALIGNANT NE 03/10/2016 ADAMARIS FRIEDMAN MD Ot I85.00 ESOPHAGEAL VARICES WITHOUT BLEEDING 03/10/2016 ADAMARIS FRIEDMAN MD Ot K74.60 UNSPECIFIED CIRRHOSIS OF LIVER 03/11/2016 ADAMARIS FRIEDMAN MD Ot I85.00 ESOPHAGEAL VARICES WITHOUT BLEEDING 03/11/2016 ADAMARIS FRIEDMAN MD Ot K74.60 UNSPECIFIED CIRRHOSIS OF LIVER 05/19/2016 Ot 241.0 NONTOX UNINODULAR GOITER 05/19/2016 Ot 240.9 GOITER NOS 05/19/2016 Ot 240.9 GOITER NOS 05/19/2016 Ot 790.4 ELEV TRANSAMINASE/LDH 05/19/2016 Ot V72.84 EXAM PRE- OPERATIVE NOS 05/19/2016 Ot 790.4 ELEV TRANSAMINASE/LDH 05/19/2016 Ot V58.61 ANTICOAGULANTS,LT,CURRENT USE 05/19/2016 Ot V58.83 ENCOUNTER FOR THERAPEUTIC DRUG MONITORIN 05/19/2016 Ot 241.0 NONTOX UNINODULAR GOITER 05/19/2016 Ot 240.9 GOITER NOS 05/19/2016 Ot V72.63 PRE- PROCEDURAL LABORATORY EXAMINATION 05/19/2016 Ot V72.81 EXAM-PRE- OPERATIVE CARDIOVASCULAR 05/19/2016 Ot V74.8 SCREEN- BACTERIAL DIS NEC 05/19/2016 Ot 571.5 CIRRHOSIS OF LIVER NOS 05/19/2016 Ot 571.49 CHRONIC HEPATITIS NEC 05/19/2016 Ot V76.12 OTH SCREEN MAMMO-MALIGN NEOPLASM OF [place]HA[place]A 05/19/2016 IDALIA LEAVITT, ADAMARIS P Ot 571.49 CHRONIC HEPATITIS NEC 05/19/2016 IDALIA LEAVITT, ADAMARIS P Ot 571.49 CHRONIC HEPATITIS NEC 05/19/2016 IDALIA LEAVITT, ADAMARIS P Ot 571.49 CHRONIC HEPATITIS NEC 05/19/2016 IDALIA LEAVITT, ADAMARIS P Ot 790.4 ELEV TRANSAMINASE/LDH 05/19/2016 CUONG LEAVITT, ASHUTOSH Schmidt Ot 244.9 HYPOTHYROIDISM NOS 05/19/2016 CUONG LEAVITT, ASHUTOSH Schmidt Ot 244.9 HYPOTHYROIDISM NOS 05/19/2016 CUONG LEAVITT, ASHUTOSH Schmidt Ot V58.69 OTH MED,LT,CURRENT USE 05/19/2016 IDALIA LEAVITT, ADAMARIS Collins Ot 571.42 AUTOIMMUNE HEPATITIS 05/19/2016 IDALIA LEAVITT, ADAMARIS P Ot 571.5 CIRRHOSIS OF LIVER NOS 05/19/2016 CUONG LEAVITT, ASHUTOSH Schmidt Ot V76.12 OTH SCREEN MAMMO-MALIGN NEOPLASM OF [place] 05/19/2016 IDALIA LEAVITT, ADAMARIS Collins Ot 571.42 AUTOIMMUNE HEPATITIS 05/19/2016 IDALIA LEAVITT, ADAMARIS P Ot 571.5 CIRRHOSIS OF LIVER NOS 05/19/2016 IDALIA LEAVITT, ADAMARIS P Ot 571.5 CIRRHOSIS OF LIVER NOS 05/19/2016 PARAG RUIZ RN FIRST ASSISTANT Ot Z12.31 ENCNTR SCREEN MAMMOGRAM FOR MALIGNANT NE 05/19/2016 CUONG LEAVITT, ASHUTOSH Schmidt Ot E89.0 POSTPROCEDURAL HYPOTHYROIDISM 05/19/2016 CUONG LEAVITT, ASHUTOSH Schmidt Ot K74.60 UNSPECIFIED CIRRHOSIS OF LIVER 05/19/2016 IDALIA LEAVITT, ADAMARIS Collins Ot K74.60 UNSPECIFIED CIRRHOSIS OF LIVER 05/19/2016 IDALIA LEAVITT, ADAMARIS P Ot I85.00 ESOPHAGEAL VARICES WITHOUT BLEEDING 05/19/2016 IDALIA LEAVITT, ADAMARIS Collins Ot K74.60 UNSPECIFIED CIRRHOSIS OF LIVER 06/17/2016 IDALIA LEAVITT, ADAMARIS Collins Ot I85.00 ESOPHAGEAL VARICES WITHOUT BLEEDING 06/17/2016 IDALIA LEAVITT, ADAMARIS Collins Ot K74.60 UNSPECIFIED CIRRHOSIS OF LIVER 06/30/2016 Ot 241.0 NONTOX UNINODULAR GOITER 06/30/2016 Ot 240.9 GOITER NOS 06/30/2016 Ot 240.9 GOITER NOS 06/30/2016 Ot 790.4 ELEV TRANSAMINASE/LDH 06/30/2016 Ot V72.84 EXAM PRE- OPERATIVE NOS 06/30/2016 Ot 790.4 ELEV TRANSAMINASE/LDH 06/30/2016 Ot V58.61 ANTICOAGULANTS,LT,CURRENT USE 06/30/2016 Ot V58.83 ENCOUNTER FOR THERAPEUTIC DRUG MONITORIN 06/30/2016 Ot 241.0 NONTOX UNINODULAR GOITER 06/30/2016 Ot 240.9 GOITER NOS 06/30/2016 Ot V72.63 PRE- PROCEDURAL LABORATORY EXAMINATION 06/30/2016 Ot V72.81 EXAM-PRE- OPERATIVE CARDIOVASCULAR 06/30/2016 Ot V74.8 SCREEN- BACTERIAL DIS NEC 06/30/2016 Ot 571.5 CIRRHOSIS OF LIVER NOS 06/30/2016 Ot 571.49 CHRONIC HEPATITIS NEC 06/30/2016 Ot V76.12 OTH SCREEN MAMMO-MALIGN NEOPLASM OF [place]HA[place]A 06/30/2016 IDALIA LEAVITT, ADAMARIS Collins Ot 571.49 CHRONIC HEPATITIS NEC 06/30/2016 IDALIA LEAVITT, ADAMARIS Collins Ot 571.49 CHRONIC HEPATITIS NEC 06/30/2016 IDALIA LEAVITT, ADAMARIS Collins Ot 571.49 CHRONIC HEPATITIS NEC 06/30/2016 IDALIA LEAVITT, ADAMARIS Collins Ot 790.4 ELEV TRANSAMINASE/LDH 06/30/2016 CUONG LEAVITT, ASHUTOSH Schmidt Ot 244.9 HYPOTHYROIDISM NOS 06/30/2016 ASHUTOSH HUTCHINS MD Ot 244.9 HYPOTHYROIDISM NOS 06/30/2016 CUONG LEAVITT, ASHUTOSH Schmidt Ot V58.69 OTH MED,LT,CURRENT USE 06/30/2016 IDALIA LEAVITT, ADAMARIS Collins Ot 571.42 AUTOIMMUNE HEPATITIS 06/30/2016 IDALIA LEAVITT, ADAMARIS Collins Ot 571.5 CIRRHOSIS OF LIVER NOS 06/30/2016 CUONG LEAVITT, ASHUTOSH Schmdit Ot V76.12 OTH SCREEN MAMMO-MALIGN NEOPLASM OF [place]HA[place] 06/30/2016 IDALIA LEAVITT, ADAMARIS Collins Ot 571.42 AUTOIMMUNE HEPATITIS 06/30/2016 IDALIA LEAVITT, ADAMARIS Collins Ot 571.5 CIRRHOSIS OF LIVER NOS 06/30/2016 IDALIA LEAVITT, ADAMARIS Collins Ot 571.5 CIRRHOSIS OF LIVER NOS 06/30/2016 PARAG RUIZ RN FIRST ASSISTANT Ot Z12.31 ENCNTR SCREEN MAMMOGRAM FOR MALIGNANT NE 06/30/2016 CUONG LEAVITT, ASHUTOSH Schmidt Ot E89.0 POSTPROCEDURAL HYPOTHYROIDISM 06/30/2016 ASHUTOSH HUTCHINS MD Ot K74.60 UNSPECIFIED CIRRHOSIS OF LIVER 06/30/2016 IDALIA LEAVITT, ADAMARIS Collins Ot K74.60 UNSPECIFIED CIRRHOSIS OF LIVER 06/30/2016 IDALIA LEAVITT, ADAMARIS Collins Ot I85.00 ESOPHAGEAL VARICES WITHOUT BLEEDING 06/30/2016 IDALIA LEAVITT, ADAMARIS Collins Ot K74.60 UNSPECIFIED CIRRHOSIS OF LIVER 07/26/2016 IDALIA LEAVITT, ADAMARIS Collins Ot K74.60 UNSPECIFIED CIRRHOSIS OF LIVER 07/26/2016 IDALIA LEAVITT, ADAMARIS Collins Ot K75.4 AUTOIMMUNE HEPATITIS 07/26/2016 IDALIA LEAVITT, ADAMARIS Collins Ot R94.5 ABNORMAL RESULTS OF LIVER FUNCTION STUDI 07/26/2016 CUONG LEAVITT, ASHUTOSH Schmidt Ot E03.9 HYPOTHYROIDISM, UNSPECIFIED 01/24/2017 Ot 241.0 NONTOX UNINODULAR GOITER 01/24/2017 Ot 240.9 GOITER NOS 01/24/2017 Ot 240.9 GOITER NOS 01/24/2017 Ot 790.4 ELEV TRANSAMINASE/LDH 01/24/2017 Ot V72.84 EXAM PRE- OPERATIVE NOS 01/24/2017 Ot 790.4 ELEV TRANSAMINASE/LDH 01/24/2017 Ot V58.61 ANTICOAGULANTS,LT,CURRENT USE 01/24/2017 Ot V58.83 ENCOUNTER FOR THERAPEUTIC DRUG MONITORIN 01/24/2017 Ot 241.0 NONTOX UNINODULAR GOITER 01/24/2017 Ot 240.9 GOITER NOS 01/24/2017 Ot V72.63 PRE- PROCEDURAL LABORATORY EXAMINATION 01/24/2017 Ot V72.81 EXAM-PRE- OPERATIVE CARDIOVASCULAR 01/24/2017 Ot V74.8 SCREEN- BACTERIAL DIS NEC 01/24/2017 Ot 571.5 CIRRHOSIS OF LIVER NOS 01/24/2017 Ot 571.49 CHRONIC HEPATITIS NEC 01/24/2017 Ot V76.12 OTH SCREEN MAMMO-MALIGN NEOPLASM OF [place] 01/24/2017 ADAMARIS FRIEDMAN MD P Ot 571.49 CHRONIC HEPATITIS NEC 01/24/2017 ADAMARIS FRIEDMAN MD P Ot 571.49 CHRONIC HEPATITIS NEC 01/24/2017 ADAMARIS FRIEDMAN MD P Ot 571.49 CHRONIC HEPATITIS NEC 01/24/2017 IDALIA LEAVITT, ADAMARIS P Ot 790.4 ELEV TRANSAMINASE/LDH 01/24/2017 ASHUTOSH HUTCHINS MD Ot 244.9 HYPOTHYROIDISM NOS 01/24/2017 ASHUTOSH HUTCHINS MD Ot 244.9 HYPOTHYROIDISM NOS 01/24/2017 ASHUTOSH HUTCHINS MD Ot V58.69 OTH MED,LT,CURRENT USE 01/24/2017 ADAMARIS FRIEDMAN MD P Ot 571.42 AUTOIMMUNE HEPATITIS 01/24/2017 ADAMARIS FRIEDMAN MD P Ot 571.5 CIRRHOSIS OF LIVER NOS 01/24/2017 ASHUTOSH HUTCHINS MD Ot V76.12 OTH SCREEN MAMMO-MALIGN NEOPLASM OF [place] 01/24/2017 ADAMARIS FRIEDMAN MD P Ot 571.42 AUTOIMMUNE HEPATITIS 01/24/2017 ADAMARIS FRIEDMAN MD P Ot 571.5 CIRRHOSIS OF LIVER NOS 01/24/2017 ADAMARIS FRIEDMAN MD P Ot 571.5 CIRRHOSIS OF LIVER NOS 01/24/2017 PARAG RUIZ APRN Ot Z12.31 ENCNTR SCREEN MAMMOGRAM FOR MALIGNANT NE 01/24/2017 ASHUTOSH HUTCHINS MD Ot E89.0 POSTPROCEDURAL HYPOTHYROIDISM 01/24/2017 ASHUTOSH HUTCHINS MD Ot K74.60 UNSPECIFIED CIRRHOSIS OF LIVER 01/24/2017 ADAMARIS FRIEDMAN MD Ot K74.60 UNSPECIFIED CIRRHOSIS OF LIVER 01/24/2017 ADAMARIS FRIEDMAN MD Ot I85.00 ESOPHAGEAL VARICES WITHOUT BLEEDING 01/24/2017 ADAMARIS FREIDMAN MD Ot K74.60 UNSPECIFIED CIRRHOSIS OF LIVER 01/24/2017 IDALIA LEAVITT, ADAMARIS Collins Ot K74.60 UNSPECIFIED CIRRHOSIS OF LIVER 01/24/2017 IDALIA LEAVITT, ADAMARIS P Ot K75.4 AUTOIMMUNE HEPATITIS 01/24/2017 IDALIA LEAVITT, ADAMARIS Collins Ot R94.5 ABNORMAL RESULTS OF LIVER FUNCTION STUDI 01/24/2017 CUONG LEAVITT, ASHUTOSH Schmidt Ot E03.9 HYPOTHYROIDISM, UNSPECIFIED 01/24/2017 Ot 241.0 NONTOX UNINODULAR GOITER 01/24/2017 Ot 240.9 GOITER NOS 01/24/2017 Ot 240.9 GOITER NOS 01/24/2017 Ot 790.4 ELEV TRANSAMINASE/LDH 01/24/2017 Ot V72.84 EXAM PRE- OPERATIVE NOS 01/24/2017 Ot 790.4 ELEV TRANSAMINASE/LDH 01/24/2017 Ot V58.61 ANTICOAGULANTS,LT,CURRENT USE 01/24/2017 Ot V58.83 ENCOUNTER FOR THERAPEUTIC DRUG MONITORIN 01/24/2017 Ot 241.0 NONTOX UNINODULAR GOITER 01/24/2017 Ot 240.9 GOITER NOS 01/24/2017 Ot V72.63 PRE- PROCEDURAL LABORATORY EXAMINATION 01/24/2017 Ot V72.81 EXAM-PRE- OPERATIVE CARDIOVASCULAR 01/24/2017 Ot V74.8 SCREEN- BACTERIAL DIS NEC 01/24/2017 Ot 571.5 CIRRHOSIS OF LIVER NOS 01/24/2017 Ot 571.49 CHRONIC HEPATITIS NEC 01/24/2017 Ot V76.12 OTH SCREEN MAMMO-MALIGN NEOPLASM OF [place]HA[place]A 01/24/2017 IDALIA LEAVITT, ADAMARIS Collins Ot 571.49 CHRONIC HEPATITIS NEC 01/24/2017 IDALIA LEAVITT, ADAMARIS P Ot 571.49 CHRONIC HEPATITIS NEC 01/24/2017 IDALIA LEAVITT, ADAMARIS P Ot 571.49 CHRONIC HEPATITIS NEC 01/24/2017 IDALIA LEAVITT, ADAMARIS Collins Ot 790.4 ELEV TRANSAMINASE/LDH 01/24/2017 CUONG LEAVITT, ASHUTOSH Schmidt Ot 244.9 HYPOTHYROIDISM NOS 01/24/2017 ASHUTOSH HUTCHINS MD Ot 244.9 HYPOTHYROIDISM NOS 01/24/2017 ASHUTOSH HUTCHINS MD Ot V58.69 OTH MED,LT,CURRENT USE 01/24/2017 IDALIA LEAVITT, ADAMARIS Collins Ot 571.42 AUTOIMMUNE HEPATITIS 01/24/2017 IDALIA MD, ADAMARIS P Ot 571.5 CIRRHOSIS OF LIVER NOS 01/24/2017 CUONG LEAVITT, ASHUTOSH Schmidt Ot V76.12 OTH SCREEN MAMMO-MALIGN NEOPLASM OF [place] 01/24/2017 IDALIA LEAVITT, ADAMARIS P Ot 571.42 AUTOIMMUNE HEPATITIS 01/24/2017 IDALIA LEAVITT, ADAMARIS P Ot 571.5 CIRRHOSIS OF LIVER NOS 01/24/2017 IDALIA LEAVITT, ADAMARIS P Ot 571.5 CIRRHOSIS OF LIVER NOS 01/24/2017 PARAG RUIZ APRN Ot Z12.31 ENCNTR SCREEN MAMMOGRAM FOR MALIGNANT NE 01/24/2017 CUONG LEAVITT, ASHUTOSH Schmidt Ot E89.0 POSTPROCEDURAL HYPOTHYROIDISM 01/24/2017 ASHUTOSH HUTCHINS MD Ot K74.60 UNSPECIFIED CIRRHOSIS OF LIVER 01/24/2017 IDALIA LEAVITT, ADAMARIS P Ot K74.60 UNSPECIFIED CIRRHOSIS OF LIVER 01/24/2017 IDALIA LEAVITT, ADAMARIS P Ot I85.00 ESOPHAGEAL VARICES WITHOUT BLEEDING 01/24/2017 ADAMARIS FRIEDMAN MD P Ot K74.60 UNSPECIFIED CIRRHOSIS OF LIVER 01/24/2017 IDALIA LEAVITT, ADAMARIS P Ot K74.60 UNSPECIFIED CIRRHOSIS OF LIVER 01/24/2017 IDALIA LAEVITT, ADAMARIS P Ot K75.4 AUTOIMMUNE HEPATITIS 01/24/2017 IDALIA LEAVITT, ADAMARIS P Ot R94.5 ABNORMAL RESULTS OF LIVER FUNCTION STUDI 01/24/2017 ASHUTOSH HUTCHINS MD Ot E03.9 HYPOTHYROIDISM, UNSPECIFIED 01/27/2017 ASHUTOSH HUTCHINS MD Ot Z12.31 ENCNTR SCREEN MAMMOGRAM FOR MALIGNANT NE 02/08/2017 ASHUTOSH HUTCHINS MD Ot Z12.31 ENCNTR SCREEN MAMMOGRAM FOR MALIGNANT NE 02/24/2017 ADAMARIS FRIEDMAN MD P Ot I85.00 ESOPHAGEAL VARICES WITHOUT BLEEDING 02/24/2017 ADAMARIS FRIEDMAN MD P Ot K74.60 UNSPECIFIED CIRRHOSIS OF LIVER 02/24/2017 ADAMARIS FRIEDMAN MD P Ot K74.60 UNSPECIFIED CIRRHOSIS OF LIVER 02/24/2017 ADAMARIS FRIEDMAN MD P Ot K75.4 AUTOIMMUNE HEPATITIS 02/24/2017 ADAMARIS FRIEDMAN MD P Ot R94.5 ABNORMAL RESULTS OF LIVER FUNCTION STUDI 02/24/2017 ASHUTOSH HUTCHINS MD Ot E03.9 HYPOTHYROIDISM, UNSPECIFIED 03/08/2017 PARAG RUIZ RN FIRST ASSISTANT Ot S29.9XXA UNSPECIFIED INJURY OF THORAX, INITIAL EN 03/08/2017 PARAG RUIZ RN FIRST ASSISTANT Ot W19.XXXA UNSPECIFIED FALL, INITIAL ENCOUNTER 03/08/2017 PARAG RUIZ RN FIRST ASSISTANT Ot Y99.8 OTHER EXTERNAL CAUSE STATUS 03/25/2017 CUONG LEAVITT, ASHUTOSH Schmidt Ot E03.9 HYPOTHYROIDISM, UNSPECIFIED Procedures Code Description Performed By Performed On 06.4 COMPLETE THYROIDECTOMY 09/19/2012 Results Test Result Range PT panel in platelet poor plasma by coagulation assay - 06/30/16 08:29 Prothrombin time (PT) in platelet poor plasma by coagulation assay 16.4 s 12.2-14.7 INR in platelet poor plasma or blood by coagulation assay 1.4 0.8-1.4 Complete blood count (CBC) with automated white blood cell (WBC) differential - 06/30/16 08:29 Blood leukocytes automated count (number/volume) 2.6 10*3/uL 4.3-11.0 Blood erythrocytes automated count (number/volume) 3.01 10*6/uL 4.35-5.85 Venous blood hemoglobin measurement (mass/volume) 9.2 g/dL 11.5-16.0 Blood hematocrit (volume fraction) 29 % 35-52 Automated erythrocyte mean corpuscular volume 95 [foz_us] 80-99 Automated erythrocyte mean corpuscular hemoglobin (mass per erythrocyte) 31 pg 25-34 Automated erythrocyte mean corpuscular hemoglobin concentration measurement ( mass/volume) 32 g/dL 32-36 Automated erythrocyte distribution width ratio 16.9 % 10.0-14.5 Automated blood platelet count (count/volume) 94 10*3/uL 130-400 Automated blood platelet mean volume measurement 10.0 [foz_us] 7.4-10.4 Automated blood neutrophils/100 leukocytes 68 % 42-75 Automated blood lymphocytes/100 leukocytes 21 % 12-44 Blood monocytes/100 leukocytes 7 % 0-12 Automated blood eosinophils/100 leukocytes 4 % 0-10 Automated blood basophils/100 leukocytes 0 % 0-10 Blood neutrophils automated count (number/volume) 1.7 10*3 1.8-7.8 Blood lymphocytes automated count (number/volume) 0.5 10*3 1.0-4.0 Blood monocytes automated count (number/volume) 0.2 10*3 0.0-1.0 Automated eosinophil count 0.1 10*3/uL 0.0-0.3 Automated blood basophil count (count/volume) 0.0 10*3/uL 0.0-0.1 Comprehensive metabolic panel - 06/30/16 08:29 Serum or plasma sodium measurement (moles/volume) 137 mmol/L 135-145 Serum or plasma potassium measurement (moles/volume) 3.6 mmol/L 3.6-5.0 Serum or plasma chloride measurement (moles/volume) 109 mmol/L 98-107 Carbon dioxide 23 mmol/L 21-32 Serum or plasma anion gap determination (moles/volume) 5 mmol/L 5-14 Serum or plasma urea nitrogen measurement (mass/volume) 8 mg/dL 7-18 Serum or plasma creatinine measurement (mass/volume) 0.69 mg/dL 0.60-1.30 Serum or plasma urea nitrogen/creatinine mass ratio 12 NRG Serum or plasma creatinine measurement with calculation of estimated glomerular filtration rate > NRG Serum or plasma glucose measurement (mass/volume) 96 mg/dL 70-105 Serum or plasma calcium measurement (mass/volume) 8.3 mg/dL 8.5-10.1 Serum or plasma total bilirubin measurement (mass/volume) 2.6 mg/dL 0.1-1.0 Serum or plasma alkaline phosphatase measurement (enzymatic activity/volume) 100 U/L 40-136 Serum or plasma aspartate aminotransferase measurement (enzymatic activity/ volume) 40 U/L 5-34 Serum or plasma alanine aminotransferase measurement (enzymatic activity/volume ) 11 U/L 0-55 Serum or plasma protein measurement (mass/volume) 5.9 g/dL 6.4-8.2 Serum or plasma albumin measurement (mass/volume) 2.9 g/dL 3.2-4.5 THYROID STIMULATING HORMONE - 06/30/16 08:29 THYROID STIMULATING HORMONE 0.01 u[iU]/mL 0.35-4.94 Serum or plasma thyroxine (T4) free measurement (mass/volume) - 06/30/16 08:29 Serum or plasma thyroxine (T4) free measurement (mass/volume) 1.92 ng/dL 0.70-1.48 Serum or plasma [id number].tumor marker measurement (mass/volume) - 08:29 Serum or plasma [id number].tumor marker measurement (mass/volume) 2.9 % 1.5-10.0 THYROID STIMULATING HORMONE - 01/24/17 10:50 THYROID STIMULATING HORMONE 0.02 u[iU]/mL 0.35-4.94 Serum or plasma thyroxine (T4) free measurement (mass/volume) - 01/24/17 10:50 Serum or plasma thyroxine (T4) free measurement (mass/volume) 2.00 ng/dL 0.70-1.48 Encounters ACCT No. Visit Date/Time Discharge Status Pt. Type Provider Facility Loc./Unit Complaint [id number] 02/07/2018 15:47:00 02/07/2018 23:59:59 CLS Preadmit ASHUTOSH HUTCHINS MD [facility] RAD SCREENING [id number] 02/20/2017 11:42:00 02/20/2017 23:59:59 CLS Outpatient PARAG RUIZ APRN [facility] RAD LEFT RIB PAIN,FALL [id number] 01/26/2017 09:39:00 01/26/2017 23:59:59 CLS Outpatient ASHUTOSH HUTCHINS MD [facility] RAD SCREENING [id number] 01/24/2017 10:44:00 01/24/2017 23:59:59 CLS Outpatient ASHUTOSH HUTCHINS MD [facility] LAB E03.9 [id number] 06/30/2016 08:31:00 06/30/2016 23:59:59 CLS Outpatient ASHUTOSH HUTCHINS MD [facility] LAB TSH,FREE T4 [id number] 06/30/2016 08:18:00 06/30/2016 23:59:59 CLS Outpatient ADAMARIS FRIEDMAN MD [facility] LAB CBC W DIFF,SMA,AFP,PT/ INR [id number] 02/08/2016 16:14:00 02/08/2016 23:59:59 CLS Outpatient ADAMARIS FRIEDMAN MD [facility] LAB K74.60,I85.00 [id number] 11/26/2015 07:20:00 11/26/2015 23:59:59 CLS Outpatient PARAG RUIZ APRN [facility] RAD SCREENING [id number] 11/24/2015 08:07:00 11/24/2015 23:59:59 CLS Outpatient ADAMARIS FRIEDMAN MD [facility] LAB Unspecified cirrhosis of liver [id number] 11/24/2015 08:02:00 11/24/2015 23:59:59 CLS Outpatient ASHUTOSH HUTCHINS MD [facility] LAB POSTPROCEDURAL HYPOTHYROIDISM,CIRRHOSIS OF LIVER [id number] 02/15/2015 13:51:00 02/15/2015 23:59:59 CLS Outpatient ADAMARIS FRIEDMAN MD [facility] LAB CIRRHOSIS OF LIVER NOS [id number] 12/19/2013 07:35:00 12/19/2013 23:59:59 CLS Outpatient ADAMARIS FRIEDMAN MD [facility] RAD CIRRHOSIS,ANTOIMMUNE HEPATITIS [id number] 11/26/2013 11:25:00 11/26/2013 23:59:59 CLS Outpatient ASHUTOSH HUTCHINS MD [facility] RAD SCREENING [id number] 10/24/2013 13:18:00 10/24/2013 23:59:59 CLS Outpatient ADAMARIS FRIEDMAN MD [facility] LAB AUTOIMMUNE HEPATITIS, CIRRHOSIS OF LIVER [id number] 10/24/2013 13:13:00 10/24/2013 23:59:59 CLS Outpatient ASHUTOSH HUTCHINS MD [facility] LAB HYPOTHYROID,BODY COMPONENT ENGINEER MED USAGE [id number] 06/19/2013 06:14:00 08/06/2013 00:01:00 DIS Outpatient ADAMARIS FRIEDMAN MD [facility] LAB CHRONIC LIVER DISEASE [id number] 05/08/2013 07:43:00 05/08/2013 23:59:59 CLS Outpatient ASHUTOSH HUTCHINS MD [facility] LAB HYPOTHYROID [id number] 03/18/2013 09:52:00 03/18/2013 23:59:59 CLS Outpatient ADAMARIS FRIEDMAN MD [facility] LAB NONSPECIFIED ELEVATED LEVELS OF TRANSIMANISE [id number] 02/12/2013 20:57:00 02/12/2013 23:59:59 CLS Outpatient ADAMARIS FRIEDMAN MD [facility] OTHER CHRONIC HEPATITIS [id number] 01/15/2013 17:51:00 01/15/2013 23:59:59 CLS Outpatient ADAMARIS FRIEDMAN MD [facility] CHRONIC HEPATITIS [id number] 12/14/2012 14:56:00 12/14/2012 23:59:59 CLS Outpatient ADAMARIS FRIEDMAN MD [facility] LAB CHRONIC HEPATITIS [id number] 02/15/2015 13:48:00 Document Registration [id number] 02/15/2015 13:48:00 Document Registration [id number] 02/15/2015 13:48:00 Document Registration [id number] 02/15/2015 13:48:00 Document Registration [id number] 02/15/2015 13:48:00 Document Registration [id number] 08/07/2013 15:26:00 Document Registration [id number] 11/22/2012 07:17:00 Document Registration [id number] 09/28/2012 07:15:00 Document Registration [id number] 09/19/2012 06:09:00 Document Registration [id number] 09/06/2012 07:45:00 Document Registration [id number] 08/10/2012 09:33:00 Document Registration [id number] 08/09/2012 09:17:00 Document Registration [id number] 08/08/2012 07:18:00 Document Registration [id number] 08/06/2012 11:25:00 Document Registration [id number] 08/02/2012 13:39:00 Document Registration 0000 02/20/2017 22:15:40 02/20/2017 23:59:59 CLS Outpatient
--- OUTSIDE RECORDS SUMMARY | 2018-08-29 12:06 | XMS REPORT | CCD ---
Author Author Guillermina Mcneil Organization [facility] Address [address] [place] [address] Phone Care Team Providers Care [employer] Name Role Phone PP Unavailable CCM Unavailable Summary Purpose Interface Exchange Insurance Providers Payer name Policy type / Coverage type Covered libertarian ID Effective Begin Date Effective End Date Blue Cross [facility] [id number] 2017 Unknown Family history Brother Diagnosis Age [...] Currently employed 07/18/[address]: 671555983 Never smoker 07/18/[address]: 373691159 Never drinks alcohol 07/18/2012 Allergies, Adverse Reactions, Alerts Substance Reaction Codes Entered Date Inactivated Date Status * NO KNOWN ENVIRONMENTAL ALLERGIES Unknown 07/18/2012 No Inactive Date Active * NO KNOWN FOOD ALLERGIES Unknown 07/18/2012 No Inactive Date Active Penicillin Unknown 07/18/2012 No Inactive Date Active Past Medical History Illness Codes Condition Status Onset Date Resolved Date Encounter for screening mammogram for malignant neoplasm of breast ICD-9: V76.12 ICD-10: Z12.31 Active 11/24/2015 Unknown 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 ICD-10: E89.0 Active 10/04/2012 Unknown Anemia, unspecified ICD-9: 285.9 ICD-10: D64.9 Active 10/24/2017 Unknown Other vitamin B12 deficiency anemias ICD-9: 281.1 ICD-10: D51.8 Active 10/24/2017 Unknown Pleurodynia ICD-9: 786.50 ICD-10: R07.81 Active 02/20/2017 Unknown Encounter for general adult medical examination without abnormal findings ICD-9: V70.0 ICD-10: Z00.00 Active 10/04/2015 Unknown Unspecified cirrhosis of liver ICD-9: 571.5 ICD-10: K74.60 Active 10/04/2012 Unknown OTH SCREENING MAMMOGRAM ICD-9: V76.12 Active 12/03/2014 Unknown HYPOTHYROIDISM ICD-9: 244.9 Active 10/10/2013 Unknown Hypothryroidism Unknown Active 10/04/2012 Unknown Cirrhosis ICD-9: 571.5 Active 10/04/2012 Unknown POSTSURGICAL HYPOTHYROIDISM ICD-9: 244.0 Active 10/04/2012 Unknown goiter Unknown Active 07/18/2012 Unknown GOITER ICD-9: 240.9 Active 07/18/2012 Unknown Problems Condition Codes Effective Dates Condition Status Encounter for screening mammogram for malignant neoplasm of breast ICD-9: V76.12 ICD-10: Z12.31 11/24/2015 Active 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 ICD-10: E89.0 10/04/2012 Active Anemia, unspecified ICD-9: 285.9 ICD-10: D64.9 10/24/2017 Active Other vitamin B12 deficiency anemias ICD-9: 281.1 ICD-10: D51.8 10/24/2017 Active Pleurodynia ICD-9: 786.50 ICD-10: R07.81 02/20/2017 Active Encounter for general adult medical examination without abnormal findings ICD-9: V70.0 ICD-10: Z00.00 10/04/2015 Active Unspecified cirrhosis of liver ICD-9: 571.5 ICD-10: K74.60 10/04/2012 Active OTH SCREENING MAMMOGRAM ICD-9: V76.12 12/03/2014 Active HYPOTHYROIDISM ICD-9: 244.9 10/10/2013 Active Hypothryroidism Unknown 10/04/2012 Active Cirrhosis ICD-9: 571.5 10/04/2012 Active POSTSURGICAL HYPOTHYROIDISM ICD-9: 244.0 10/04/2012 Active goiter Unknown 07/18/2012 Active GOITER ICD-9: 240.9 07/18/2012 Active Medications Medication Codes Instructions Start Date Stop Date Status Fill Instructions naproxen 500 mg tablet RxNorm: 997151 1 Tablet(s) PO BID as needed 02/28/2017 No Stop Date Active levothyroxine 125 mcg tablet RxNorm: 576180 1 Tablet(s) PO daily 02/08/2017 02/02/2018 Inactive levothyroxine 150 mcg tablet RxNorm: 189051 1 Tablet(s) PO daily 07/08/2016 02/07/2017 Inactive levothyroxine 175 mcg tablet RxNorm: 229285 1 Tablet(s) PO daily 12/11/2015 07/07/2016 Inactive med increased levothyroxine 125 mcg tablet RxNorm: 874657 1 Tablet(s) PO daily 10/05/2015 12/10/2015 Inactive levothyroxine 125 mcg tablet RxNorm: 301101 1 Tablet(s) PO daily 08/11/2014 08/05/2015 Inactive levothyroxine 125 mcg tablet RxNorm: 709427 1 Tablet(s) PO daily 06/07/2013 06/01/2014 Inactive levothyroxine 125 mcg tablet RxNorm: 631643 1 Tablet(s) PO daily 05/30/2013 06/06/2013 Inactive levothyroxine 125 mcg tablet RxNorm: 963816 1 Tablet(s) PO daily 05/09/2013 05/29/2013 Inactive levothyroxine 125 mcg tablet RxNorm: 654618 1 Tablet(s) PO daily 05/09/2013 05/08/2013 Inactive levothyroxine 100 mcg tablet RxNorm: 434235 1 Tablet(s) PO daily 11/09/2012 05/09/2013 Inactive vitamin B12 200mcg [place], Suspension RxNorm: 1 [place] PO daily No Start Date Active vitamin E (dl, acetate) 400 unit capsule RxNorm: 808334 2 Capsule(s) PO daily No Start Date Active Vitamin C 1,000 mg tablet RxNorm: 519807 2 Tablet(s) PO daily No Start Date Active Vitamin D3 5,000 unit tablet RxNorm: 563133 1 Tablet(s) PO daily No Start Date Active Calcium Citrate + D 600 mg RxNorm: 2 Tablet(s) PO daily No Start Date Active Imuran 50 mg tablet RxNorm: 497148 2 Tablet(s) PO daily No Start Date Active naproxen 500 mg tablet RxNorm: 606631 1 Tablet(s) PO BID as needed No Start Date 02/27/2017 Inactive levothyroxine 100 mcg tablet RxNorm: 498688 1 Tablet(s) PO daily No Start Date 11/08/2012 Inactive Vitamin C & E capsule RxNorm: 1 Capsule(s) PO daily No Start Date 10/05/2015 Inactive Calcium 600 + D(3) 600 mg (1,500 mg)-400 unit tablet RxNorm: 672204 1 Tablet(s) PO TID No Start Date 10/05/2015 Inactive Medication Administered No Medication Administered data Immunizations No Immunization data Assessments Condition Codes Effective Dates Encounter for screening mammogram for malignant neoplasm of breast ICD-10: Z12.31 ICD-9: V76.12 02/21/2018 Postprocedural hypothyroidism ICD-10: E89.0 ICD-9: 244.0 11/22/2017 Anemia, unspecified ICD-10: D64.9 ICD-9: 285.9 10/24/2017 Other vitamin B12 deficiency anemias ICD-10: D51.8 ICD-9: 281.1 10/24/2017 Syncope and collapse ICD-10: R55 ICD-9: 780.2 10/23/2017 Pleurodynia ICD-10: R07.81 ICD-9: 786.50 02/20/2017 Encounter for general adult medical examination without abnormal findings ICD-10: Z00.00 ICD-9: V70.0 10/24/2016 Unspecified cirrhosis of liver ICD-10: K74.60 ICD-9: 571.5 10/05/2015 [facility] SCREENING MAMMOGRAM ICD-9: V76.12 01/2015 HYPOTHYROIDISM ICD-9: 244.9 10/10/2013 Cirrhosis ICD-9: 571.5 10/04/2012 POSTSURGICAL HYPOTHYROIDISM ICD-9: 244.0 10/04/2012 GOITER ICD-9: 240.9 07/18/2012 Reason For Visit Reason For Visit Effective Dates Notes near-syncope/dizziness 11/22/2017 near-syncope/dizziness 10/23/2017 back pain 02/20/2017 hypothyroid 10/24/2016 hypothyroid 10/05/2015 hypothyroid 10/10/2013 hypothyroid 04/11/2013 Hospital Follow Up 10/04/2012 goiter 07/18/2012 Results Observation Observation Code Item Item Code Result Date Free T4 [id number] FREE T4 1.75 ng/dL 03/16/2018 Tsh Ord6 TSH (3rd IS) 3.43 uIU/mL 03/16/2018 B12 Loo381 B12 390.00 pg/ml 10/24/2017 Ferritin Ord22 FERRITIN 63.2 ng/mL 10/24/2017 Tibc Ord40 Iron 143 ug/dl 10/24/2017 Tibc Ord40 UIBC 160 ug/dL 10/24/2017 Tibc Ord40 TIBC 303 ug/dL 10/24/2017 Tibc Ord40 Fe-%Sat 47.2 % 10/24/2017 Tsh Ord6 TSH (3rd IS) 0.57 uIU/mL 10/23/2017 Comp Metabolic Hze074 NA 138 mEq/L 10/23/2017 Comp Metabolic Rop971 K 3.8 mEq/L 10/23/2017 Comp Metabolic Plb776 CL 105 mEq/L 10/23/2017 Comp Metabolic Cgo193 CO2 27.0 mEq/L 10/23/2017 Comp Metabolic Prr337 ANION GAP 10 10/23/2017 Comp Metabolic Hfn074 GLUCOSE 123 mg/dL 10/23/2017 Comp Metabolic Nqi759 Creat 0.8 mg/dL 10/23/2017 Comp Metabolic Efh254 eGFR 77 ml/min/1.73m2 10/23/2017 Comp Metabolic Jld837 BUN 13 mg/dL 10/23/2017 Comp Metabolic Apz428 B/C Ratio 16.3 Ratio 10/23/2017 Comp Metabolic Hcz193 CALCIUM 8.4 mg/dL 10/23/2017 Comp Metabolic Edu712 ALK PHOS 170 U/L 10/23/2017 Comp Metabolic Ivd324 AST(SGOT) 56 U/L 10/23/2017 Comp Metabolic Qms282 ALT(SGPT) 21 U/L 10/23/2017 Comp Metabolic Pgy266 BILI T 2.7 mg/dL 10/23/2017 Comp Metabolic Qxy275 ALBUMIN 2.9 g/dL 10/23/2017 Comp Metabolic Ifq425 TPRO 6.1 g/dL 10/23/2017 Comp Metabolic Iyp439 GLOB 3.2 g/dL 10/23/2017 Comp Metabolic Ear136 A/G Ratio 0.9 Ratio 10/23/2017 Comp Metabolic Dtf860 Osmo 277 mOsmo 10/23/2017 Cbc With Differential Ord2 WBC 4.61 K/ul 10/23/2017 Cbc With Differential Ord2 RBC 3.11 M/ul 10/23/2017 Cbc With Differential Ord2 HGB 9.7 g/dl 10/23/2017 Cbc With Differential Ord2 Neut% 85.8 % 10/23/2017 Cbc With Differential Ord2 HCT 30.0 % 10/23/2017 Cbc With Differential Ord2 MCV 96.5 fl 10/23/2017 Cbc With Differential Ord2 Lymph% 7.2 % 10/23/2017 Cbc With Differential Ord2 MCH 31.2 pg 10/23/2017 Cbc With Differential Ord2 [place]% 5.9 % 10/23/2017 Cbc With Differential Ord2 Eos% 0.9 % 10/23/2017 Cbc With Differential Ord2 MCHC 32.3 pg 10/23/2017 Cbc With Differential Ord2 PLT 98 K/ul 10/23/2017 Cbc With Differential Ord2 Baso% 0.2 % 10/23/2017 Cbc With Differential Ord2 Neut ABS# 3.96 K/ul 10/23/2017 Cbc With Differential Ord2 RDW 18.1 % 10/23/2017 Cbc With Differential Ord2 Lymph ABS# 0.33 K/ul 10/23/2017 Cbc With Differential Ord2 [place] ABS# 0.3 K/ul 10/23/2017 Cbc With Differential Ord2 Eos ABS# 0.0 K/ul 10/23/2017 Cbc With Differential Ord2 Baso ABS# 0.0 K/ul 10/23/2017 Free T4 Dfx337 FREE T4 1.92 ng/dL 10/23/2017 Review of [...] tenderness 10/10/2013 None Full Exam - General 1995 Abdomen abdominal exam Overall: normal bowel sounds [...] accomodation 04/11/2013 None Full Exam - General 1994 Ears/Nose/Throat oral cavity/pharynx/larynx Overall: oropharyngeal mucosa clear 04/11/2013 None Full Exam - General 1995 Ears/Nose/Throat oral cavity/pharynx/larynx Overall: no masses 04/11/2013 None Full Exam - General 1995 Ears/Nose/Throat oral cavity/pharynx/larynx Overall: oral mucosa clear 04/11/2013 None Full Exam - General 1994 Ears/Nose/Throat otoscopic exam Overall: tympanic membranes clear 04/11/2013 None Full Exam - General 1995 Ears/Nose/Throat otoscopic exam Overall: external auditory canals clear 04/11/2013 None Full Exam - General 1995 Respiratory auscultation Overall: breath sounds clear bilaterally 04/11/2013 None Full Exam - General 1995 Respiratory respiratory effort/rhythm Overall: normal rate 04/11/2013 None Full Exam - General 1995 Respiratory respiratory effort/rhythm Overall: no retractions 04/11/2013 None Full Exam - General 1994 Cardiovascular auscultation of heart Overall: regular rate 04/11/2013 None Full Exam - General 1995 Cardiovascular auscultation of heart Overall: normal heart sounds 04/11/2013 None Full Exam - General 1995 Cardiovascular auscultation of heart Overall: no murmurs 04/11/2013 None Full Exam - General 1994 Abdomen abdominal exam Overall: no tenderness 04/11/2013 None Full Exam - General 1995 Abdomen abdominal exam Overall: normal bowel sounds [...] accomodation 10/04/2012 None Full Exam - General 1994 Ears/Nose/Throat [...] bilaterally 10/04/2012 None Full Exam - General 1995 Cardiovascular auscultation of heart Overall: regular rate 10/04/2012 None Full Exam - General 1994 Cardiovascular auscultation of heart Overall: normal heart sounds 10/04/2012 None Full Exam - General 1995 Cardiovascular auscultation of heart Overall: no murmurs [...] No Procedures data Vital Signs Date Vital 11/22/2017 Blood Pressure 1: 140/66 Code : 8480-6 BMI: 30.0 Code : 56227-9 Heart Rate 1 : 83 bpm Height: 5'5" SpO2: 98% Weight: 180 lbs 10/23/2017 Blood Pressure 1: 180/74 Code : 8480-6 Blood Pressure 1: 166/86 Code: 8480-6 BMI: 29.8 Code: 30456-9 Heart Rate 1: 99 bpm Height: 5'5" SpO2: 98% Weight: 179 lbs 02/20/2017 Blood Pressure 1: 152/62 Code : 8480-6 BMI: 29.8 Code : 17282-7 Heart Rate 1 : 77 bpm Height: 5'5" SpO2: 99% Weight: 179 lbs 10/24/2016 Blood Pressure 1: 138/72 Code : 8480-6 BMI: 30.6 Code : 20855-0 Height: 5'5" Weight: 184 lbs 10/05/2015 Blood Pressure 1: 138/78 Code : 8480-6 BMI: 32.6 Code : 95624-2 Heart Rate 1 : 89 bpm Height: 5'5" SpO2: 98% Weight: 196 lbs 10/10/2013 Blood Pressure 1: 132/82 Code : 8480-6 BMI: 31.5 Code : 27876-2 Heart Rate 1 : 84 bpm Height: 5'5" Weight: 189 lbs 04/11/2013 Blood Pressure 1: 128/68 Code : 8480-6 BMI: 31.6 Code : 11286-2 Heart Rate 1 : 80 bpm Height: 5'5" Weight: 190 lbs 10/04/2012 Blood Pressure 1: 138/80 Code : 8480-6 Heart Rate 1: 80 bpm Respiratory Rate : 20 bpm Weight: 173 lbs 07/18/2012 Blood Pressure 1: 118/68 Code : 8480-6 BMI: 30.1 Code : 25692-0 Heart Rate 1 : 84 bpm Height: 5'5" Respiratory Rate: 16 bpm Weight: 181 lbs Functional Status No Functional Status data History of Present Illness Symptom Name Status Result Effective Date Notes near-syncope/dizziness Quality fogginess 11/22/2017 None near-syncope/dizziness Quality [...] distance 07/18/2012 None goiter Onset of Symptom 1980's 07/18/2012 None goiter Pertinent Findings Denies anxiety [...] data Encounters Encounter Performer Location Codes Date EST. PATIENT, LEVEL IV Diagnosis: Postprocedural hypothyroidism[ICD10: E89.0] Dinora Mcneil MD, [facility] CPT-4: 68474 11/22/2017 [id number] EST. PATIENT, LEVEL IV Diagnosis: Postprocedural hypothyroidism[ICD10: E89.0] Diagnosis: Syncope and collapse[ICD10: R55] Dinora Mcneil MD, [facility] CPT- 4: 46963 10/23/2017 [id number] EST. PATIENT, LEVEL III Diagnosis: Pleurodynia[ICD10: R07.81] Dinora Mcneil MD, [facility] CPT-4 : 67656 02/20/2017 ([id number]) PREV VISIT EST AGE 40-64 Diagnosis: Encounter for general adult medical examination without abnormal findings[ICD10: Z00.00] Diagnosis: Encounter for screening mammogram for malignant neoplasm of breast[ ICD10: Z12.31] [facility] CPT-4: 88999 10/24/2016 ([id number]) PREV VISIT EST AGE 40-64 Diagnosis: Encounter for general adult medical examination without abnormal findings[ICD10: Z00.00] [facility] CPT-4: 65135 10/05/2015 ([id number]) 23950 EST. PATIENT, LEVEL III Diagnosis: HYPOTHYROIDISM[ICD9: 244.9] [facility] CPT- 4: 60870 10/10/2013 ([id number]) 33641 EST. PATIENT, LEVEL III Diagnosis: HYPOTHYROIDISM[ICD9: 244.9] [facility] CPT- 4: 19735 04/11/2013 ([id number]) 27416 EST. PATIENT, LEVEL III Diagnosis: Hypothyroid[ICD9: 244.9] Diagnosis: POSTSURGICAL HYPOTHYROIDISM[ICD9: 244.0] Diagnosis: Cirrhosis[ICD9: 571.5] [facility] CPT-4: 18673 10/04/2012 ([id number]) OFFICE VISIT, NEW - LEVEL 3 Diagnosis: GOITER[ICD9: 240.9] Guillermina Mcneil MD, [facility] CPT-4: 14080 07/18/2012 Plan of Care Planned Activity Notes Codes Status Date Patient Education: Patient Medication Summary Completed 02/21/2018 Care Plan: [facility] 63785-4 Pending 02/21/2018 Visit Plan: Hypothyroidism - pt with chronic hypothyroidism , continue with current medication, will monitor pt to signs or symptoms of lack of adequate supplementation. Pt is to continue with current dose of medication unless directed otherwise. Check labs at regular intervals wither q 3 months or q 6 months based on previous levels of control. 11/22/2017 App[facility]ment[phone] [facility] ([facility] min[facility] Complex 11/22/2017 Patient Education: Patient Medication Summary Completed [...] or concerns. 10/23/2017 Appointment: [phone] ([facility] min) Complex 10/23/2017 Patient Education: Patient [...] or does not improve. 02/20/2017 Appointment: Dinora Lasister WPtel: [facility] [facility] (30 min) Complex 02/20/2017 Patient Education: Patient [...] renal functioning. 10/24/2016 Appointment: Guillermina Mcneil WPtel: [phone] [facility] (15 min) Moderate 10/24/2016 Patient Education: Patient Medication Summary Completed 10/24/2016 Patient Education: Obesity Completed 10/24/2016 Appointment: Guillermina Mcneil WPtel: [phone] [facility] [place] (15 min) Moderate 10/03/2016 Patient Education: Patient [...] of control. 10/10/2013 Appointment: Guillermina Mcneil WPtel: [address] [place], [place] [phone] Follow up 10/10/2013 Patient Education: Patient Medication [...] of control. 04/11/2013 Appointment: Guillermina Mcneil WPtel: [address] [place], [place] [phone] Follow up 04/11/2013 Patient Education: Patient Medication Summary Completed 04/11/2013 Appointment: Guillermina Mcneil WPtel: [address] [place], [place] [phone] Follow up 04/04/2013 Visit Plan: Hypothyroid - post surgically - pt to have thyroid labs checked - will monitor her TSH and Free T4 - supplement as needed, will also follow her calcium levels. Cirrhosis - pt to have MRI tomorrow - will monitor her liver enzymes as well. Pt is doing quite well post-operatively. 10/04/2012 Appointment: Guillermina Mcneil WPtel: [address] [place], [place] [address] Follow up 10/04/2012 Patient Education: Patient Medication [...] the reports. 07/18/2012 Appointment: [facility]il [facility] [facility] 07/18/2012 Patient Education: Patient Medication [...]
--- NOTE | 2018-08-29 12:38 | ED General ---
General Chief Complaint: General Problems/Pain Stated Complaint: R HIP PAIN/HEAT Nursing Triage Note: AMB TO ED C/O SWELLING IN LEGS FOR 1 WEEK AND R HIP PAIN FOR 2 DAYS NO INJURY NO PAIN WHEN SITTNG JUST WALKING THAN RATES 5/10 Nursing Sepsis Screen: No Definite Risk Source of Information: Patient Exam Limitations: No Limitations History of Present Illness Date Seen by Provider: Aug 29, 2018 Time Seen by Provider: 12:37 Initial Comments To ER with bilateral lower and the swelling for about a week. She states that she is getting over the flu and has had a cough but no shortness of breath. She' s had some anterior and lateral right hip pain. No redness or swelling. History of autoimmune hepatitis with cirrhosis, follows with Dr. Cruz from gastroenterology at [place]. Timing/Duration: 1 Week Severity: Moderate Associated Systoms: Cough; No Shortness of Air Allergies and Home Medications Allergies Uncoded Allergies: PCN (Allergy, Mild, NAUSEA AND VOMITING, 08/09/12) Home Medications Calcium Carb & Cit/Vitamin D3 1 Each Tablet.er, 500 MG PO TID, (Reported) Cefuroxime Axetil 250 Mg Tablet, 250 MG PO BID Prescribed by: CIRA ZEPEDA on 08/29/18 1400 Furosemide 40 Mg Tablet, 40 MG PO DAILY Prescribed by: CIRA ZEPEDA on 08/29/18 1400 Hydrocodone Bit/Acetaminophen 1 Each Tablet, 1-2 EACH PO Q4HR PRN, (Reported) Levothyroxine Sodium 100 Mcg Tablet, 1 EACH PO DAILY, (Reported) Potassium Chloride 20 Meq Tablet.er, 20 MEQ PO DAILY Prescribed by: CIRA ZEPEDA on 08/29/18 1400 Patient Home Medication List Home Medication List Reviewed: Yes Review of Systems Review of Systems Constitutional: see HPI EENTM: see HPI Respiratory: see HPI, short of breath Cardiovascular: no symptoms reported Genitourinary: no symptoms reported Musculoskeletal: no symptoms reported Skin: no symptoms reported Psychiatric/Neurological: No Symptoms Reported Hematologic/Lymphatic: No Symptoms Reported Past Vbfyghp-Tejrvx-Mzogyq Hx Patient Social History Alcohol Use: Denies Use Recreational Drug Use: No Smoking Status: Never a Smoker Recent Foreign Travel: No Contact w/Someone Who Travel: No Recent Infectious Disease Expo: No Immunizations Up To Date Tetanus Booster (TDap): Unknown Date of Pneumonia Vaccine: Sep 20, 2012 Date of Influenza Vaccine: Sep 20, 2012 Past Medical History Surgeries: Yes (LIVER BX ) Respiratory: No Cardiac: No Neurological: No 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 oz. 77.167216tm; BMI Method:Stated General Appearance: No Apparent Distress, WD/WN Eyes: Bilateral Eye Normal Inspection, Bilateral Eye PERRL, Bilateral Eye EOMI HEENT: PERRL/EOMI, TMs Normal Neck: Full Range of Motion, Normal Inspection Respiratory: No Accessory Muscle Use, No Respiratory Distress Cardiovascular: Regular Rate, Rhythm, Normal Peripheral Pulses Gastrointestinal: Normal Bowel Sounds, Non Tender, Soft Extremity: Pedal Edema, Swelling (bilateral lower extremities 3+) Neurologic/Psychiatric: Alert, Oriented x3 Skin: Normal Color, Warm/Dry Progress/Results/Core Measures Suspected Sepsis Recent Fever Within 48 Hours: No Infection Criteria Present: None New/Unexplained Altered Menta: No Sepsis Screen: No Definite Risk SIRS Temperature:98.0 Pulse: 100 Respiratory Rate: 18 Laboratory Tests 08/29/18 12:42: White Blood Count 8.9 Blood Pressure / Mean: Laboratory Tests 08/29/18 12:42: Creatinine 0.83, INR Comment 1.4, Platelet Count 115L, Total Bilirubin 3.0H Results/Orders Lab Results Laboratory Tests Test 08/29/18 12:42 08/29/18 13:00 08/29/18 14:09 Range/Units White Blood Count 8.9 4.3-11.0 10^3/uL Red Blood Count 2.83 L 4.35-5.85 10^6/uL Hemoglobin 8.7 L 11.5-16.0 G/DL Hematocrit 26 L 35-52 % Mean Corpuscular Volume 93 80-99 FL Mean Corpuscular Hemoglobin 31 25-34 PG Mean Corpuscular Hemoglobin Concent 33 32-36 G/DL Red Cell Distribution Width 18.9 H 10.0-14.5 % Platelet Count 115 L 130-400 10^3/uL Mean Platelet Volume 9.9 7.4-10.4 FL Neutrophils (%) (Auto) 90 H 42-75 % Lymphocytes (%) (Auto) 4 L 12-44 % Monocytes (%) (Auto) 4 0-12 % Eosinophils (%) (Auto) 2 0-10 % Basophils (%) (Auto) 0 0-10 % Neutrophils # (Auto) 8.0 H 1.8-7.8 X 10^3 Lymphocytes # (Auto) 0.3 L 1.0-4.0 X 10^3 Monocytes # (Auto) 0.4 0.0-1.0 X 10^3 Eosinophils # (Auto) 0.2 0.0-0.3 10^3/uL Basophils # (Auto) 0.0 0.0-0.1 10^3/uL Neutrophils % (Manual) 89 % Lymphocytes % (Manual) 3 % Monocytes % (Manual) 2 % Eosinophils % (Manual) 1 % Basophils % (Manual) 0 % Band Neutrophils 5 % Anisocytosis SLIGHT Elliptocytes SLIGHT Prothrombin Time 17.5 H 12.2-14.7 SEC INR Comment 1.4 0.8-1.4 Activated Partial Thromboplast Time 32 24-35 SEC Sodium Level 134 L 135-145 MMOL/L Potassium Level 3.4 L 3.6-5.0 MMOL/L Chloride Level 99 98-107 MMOL/L Carbon Dioxide Level 26 21-32 MMOL/L Anion Gap 9 5-14 MMOL/L Blood Urea Nitrogen 16 7-18 MG/DL Creatinine 0.83 0.60-1.30 MG/DL Estimat Glomerular Filtration Rate > 60 BUN/Creatinine Ratio 19 Glucose Level 108 H 70-105 MG/DL Calcium Level 7.9 L 8.5-10.1 MG/DL Corrected Calcium 9.3 8.5-10.1 MG/DL Total Bilirubin 3.0 H 0.1-1.0 MG/DL Aspartate Amino Transf (AST/SGOT) 44 H 5-34 U/L Alanine Aminotransferase (ALT/SGPT) 16 0-55 U/L Alkaline Phosphatase 133 40-136 U/L Troponin I < 0.028 <0.028 NG/ML B-Type Natriuretic Peptide 111.2 H <100.0 PG/ML Total Protein 5.7 L 6.4-8.2 GM/DL Albumin 2.3 L 3.2-4.5 GM/DL Urine Color CARLYLE H Urine Clarity CLEAR Urine pH 6 5-9 Urine Specific Owen 1.020 1.016-1.022 Urine Protein 2+ H NEGATIVE Urine Glucose (UA) NEGATIVE NEGATIVE Urine Ketones 2+ H NEGATIVE Urine Nitrite POSITIVE H NEGATIVE Urine Bilirubin 2+ H NEGATIVE Urine Urobilinogen 12 H NORMAL MG/DL Urine Leukocyte Esterase 2+ H NEGATIVE Urine RBC (Auto) 5+ H NEGATIVE Urine RBC >100 H /HPF Urine WBC 5-10 H /HPF Urine Squamous Epithelial Cells 10-25 H /HPF Urine Crystals NONE /LPF Urine Bacteria MODERATE H /HPF Urine Casts NONE /LPF Urine Mucus MODERATE H /LPF Urine Culture Indicated YES My Orders Orders - CIRA ZEPEDA APRN Cbc With Automated Diff (08/29/18 12:31) Comprehensive Metabolic Panel (08/29/18 12:31) Protime With Inr (08/29/18 12:31) Ua Culture If Indicated (08/29/18 12:31) Partial Thromboplastin Time (08/29/18 12:31) Chest Pa/Lat (2 View) (08/29/18 12:31) Ekg Tracing (08/29/18 12:31) BNP (08/29/18 12:31) Troponin I (08/29/18 12:31) Iv Heplock-Insert (Order) (08/29/18 12:35) Us Venous Lower Ext Neha (08/29/18 12:36) Manual Differential (08/29/18 12:42) Albumin 25% 25 Gm/100 Ml (Albumin 25% 25 (08/29/18 13:30) Urine Culture (08/29/18 13:00) Ceftriaxone For Iv Use (Rocephin For I (08/29/18 13:45) Cephalexin Capsule (Keflex Capsule) (08/29/18 14:15) Thyroid Stimulating Hormone (08/29/18 14:29) Free T4 (Free Thyroxine) (08/29/18 14:29) Medications Given in ED Current Medications Medications Dose Ordered Sig/Soy Route Start Time Stop Time Status Last Admin Dose Admin Albumin Human 100 ml @ 50 mls/hr ONCE ONCE IV 08/29/18 13:30 08/29/18 15:29 08/29/18 14:00 50 MLS/HR Cephalexin HCl 500 mg ONCE ONCE PO 08/29/18 14:15 08/29/18 14:16 DC 08/29/18 14:14 500 MG Vital Signs/I&O 08/29/18 12:24 Temp 98.0 Pulse 100 Resp 18 B/P (MAP) Pulse Ox 100 Capillary Refill : Less Than 3 Seconds Diagnostic Imaging Diagonstic Imaging: Xray, Ultrasound Comments NAME: AMBROSIO ARREDONDO [facility] REC#: [id number] PT STATUS: REG ER : 1955 PHYSICIAN: CIRA ZEPEDA APRN ADMIT DATE: 08/29/18/ER Draft Date of Exam:08/29/18 US VENOUS LOWER EXT NEHA PROCEDURE: US Venous Lower Ext Neha. TECHNIQUE: Multiple Real-time grayscale images were obtained over the lower extremities in various projections bilaterally. Additional duplex Doppler and color Doppler images were also obtained. INDICATION: Bilateral leg pain. COMPARISON: There are no prior studies available for comparison. There is generally good blood flow and compressibility at all levels of the deep venous system of each lower extremity. There is no sign of a deep venous thrombosis. IMPRESSION: There is no evidence for deep venous thrombosis in either lower extremity. Dictated on workstation # [id number] Dict: 08/29/18 1419 Trans: 08/29/18 1425 [id number] Interpreted by: KEVEN MESA MD Electronically signed by: NAME: AMBROSIO ARREDONDO [facility] REC#: [id number] PT STATUS: REG ER : 1955 PHYSICIAN: CIRA ZEPEDA APRN ADMIT DATE: 08/29/18/ER Draft Date of Exam:08/29/18 CHEST PA/LAT (2 VIEW) EXAMINATION: PA and lateral chest obtained at 02:29 p.m. FINDINGS: Heart and mediastinal silhouette are normal in appearance. There is mild central vascular prominence which appears at baseline compared to 02/20/2017. There is however a new area of infiltrate in the right lung base posteriorly which may represent pneumonia. There is a trace of pleural fluid on both sides. IMPRESSION: Mild central vascular prominence, unchanged compared to the prior study. New area of infiltrate in the right lung base with trace bilateral pleural effusions. Dictated on workstation # [id number] Dict: 08/29/18 1440 Trans: 08/29/18 1445 [facility] [id number] Interpreted by: GRAYSON COSME MD Electronically signed by: Departure Impression Primary Impression: Urinary tract infection Qualified Codes: N30.00 - Acute cystitis without hematuria Additional Impressions: Cirrhosis Qualified Codes: K74.60 - Unspecified cirrhosis of liver Pedal edema RLL pneumonia Disposition: HOME, SELF-CARE Condition: Stable Departure-Patient Inst. Decision time for Depature: 13:57 Referrals: ASHUTOSH HUTCHINS MD (PCP/Family) Primary Care Physician Patient Instructions: Cirrhosis (DC), Dependent Edema (DC), Urinary Tract Infection, Adult (DC) Add. Discharge Instructions: 1. elevate your legs as much as possible for the next few days. Call Dr Hutchins to make an appointment to be seen later this week for recheck. Take the diuretics as directed All discharge instructions reviewed with patient and/or family. Voiced understanding. Scripts Cefdinir (Cefdinir) 300 Mg Capsule 300 MG PO BID, #14 CAP Prov: CIRA ZEPEDA [employer] 08/29/18 Potassium Chloride (Potassium Chloride) 20 Meq Tablet.er 20 MEQ PO DAILY, #4 TAB Prov: CIRA ZEPEDA [employer] 08/29/18 Furosemide (Lasix) 40 Mg Tablet 40 MG PO DAILY, #4 TAB Prov: CIRA ZEPEDA APRN 08/29/18 Copy Copies To 1: ASHUTOSH HUTCHINS MD, PETER J APRN Aug 29, 2018 12:38
[2018-08-29 12:52] LABS: BASOPHILS % (AUTO) 0 % (0-10); EOSINOPHILS # (AUTO) 0.2 10^3/uL (0.0-0.3); EOSINOPHILS % (AUTO) 2 % (0-10); HEMATOCRIT 26 % (35-52); HEMOGLOBIN 8.7 G/DL (11.5-16.0); LYMPHOCYTES # (AUTO) 0.3 X 10^3 (1.0-4.0); LYMPHOCYTES % (AUTO) 4 % (12-44); MEAN CORPUSCULAR HEMOGLOBIN 31 PG (25-34); MEAN CORPUSCULAR HGB CONC 33 G/DL (32-36); MEAN CORPUSCULAR VOLUME 93 FL (80-99); MEAN PLATELET VOLUME 9.9 FL (7.4-10.4); MONOCYTES # (AUTO) 0.4 X 10^3 (0.0-1.0); MONOCYTES % (AUTO) 4 % (0-12); NEUTROPHILS % (AUTO) 90 % (42-75); PLATELET COUNT 115 10^3/uL (130-400); RED CELL DISTRIBUTION WIDTH 18.9 % (10.0-14.5); WHITE BLOOD COUNT 8.9 10^3/uL (4.3-11.0)
[2018-08-29 13:04] LABS: INR 1.4 (0.8-1.4); PROTHROMBIN TIME PATIENT 17.5 SEC (12.2-14.7)
[2018-08-29 13:08] LABS: NEUTROPHILS % (MANUAL) 89 %
[2018-08-29 13:09] LABS: ANISOCYTOSIS SLIGHT; BAND NEUTROPHILS 5 %; BASOPHILS % (MANUAL) 0 %; ELLIPT/OVALOCYTES SLIGHT; EOSINOPHILS % (MANUAL) 1 %; LYMPHOCYTES % (MANUAL) 3 %; MONOCYTES % (MANUAL) 2 %
[2018-08-29 13:13] LABS: ALANINE AMINOTRANSFERASE 16 U/L (0-55); ALBUMIN 2.3 GM/DL (3.2-4.5); ALKALINE PHOSPHATASE 133 U/L (40-136); BUN/CREATININE RATIO 19; CALCIUM 7.9 MG/DL (8.5-10.1); CARBON DIOXIDE 26 MMOL/L (21-32); CHLORIDE 99 MMOL/L (98-107); CREATININE SERUM 0.83 MG/DL (0.60-1.30); GFR ESTIMATED > 60; GLUCOSE 108 MG/DL (70-105); POTASSIUM 3.4 MMOL/L (3.6-5.0); SODIUM 134 MMOL/L (135-145); TOTAL PROTEIN 5.7 GM/DL (6.4-8.2)
[2018-08-29 13:17] LABS: CLARITY,URINE CLEAR; COLOR,URINE AMBER; GLUCOSE, URINE (UA) NEGATIVE (NEGATIVE); KETONES,URINE 2+ (NEGATIVE); LEUKOCYTE ESTERASE ,URINE 2+ (NEGATIVE); NITRITE,URINE POSITIVE (NEGATIVE); PH,URINE 6 (5-9); PROTEIN,URINE 2+ (NEGATIVE); UROBILINOGEN,URINE 12 MG/DL (NORMAL)
[2018-08-29] MEDS ORDERED: ALBUMIN 25% 25 GM/100 ML 100 ML IV ONE (13:30)
[2018-08-29 13:31] LABS: BACTERIA,URINE MODERATE /HPF; BILIRUBIN,URINE 2+ (NEGATIVE); RBC,URINE >100 /HPF
[2018-08-29] MEDS ORDERED: cefTRIAXone FOR IV USE 1,000 MG in NS (IVPB) 50 ML IV ONE (13:45)
[2018-08-29] MEDS ORDERED: POTA-51 PO (14:00)
[2018-08-29] MEDS ORDERED: FURO-124 PO (14:00)
[2018-08-29] MEDS ORDERED: CEFU250T80 PO (14:00)
[2018-08-29] MEDS ORDERED: CEPHALEXIN 250 MG (KEFLEX) CAP PO ONE (14:15)
--- NOTE | 2018-08-29 14:25 | Diagnostic Imaging Report ---
PROCEDURE: US Venous Lower Ext Jose Alejandro. TECHNIQUE: Multiple Real-time grayscale images were obtained over the lower extremities in various projections bilaterally. Additional duplex Doppler and color Doppler images were also obtained. INDICATION: Bilateral leg pain. COMPARISON: There are no prior studies available for comparison. There is generally good blood flow and compressibility at all levels of the deep venous system of each lower extremity. There is no sign of a deep venous thrombosis. IMPRESSION: There is no evidence for deep venous thrombosis in either lower extremity. Dictated by: Dictated on workstation # [id number]
--- NOTE | 2018-08-29 14:45 | Diagnostic Imaging Report ---
EXAMINATION: PA and lateral chest obtained at 02:29 p.m. FINDINGS: Heart and mediastinal silhouette are normal in appearance. There is mild central vascular prominence which appears at baseline compared to 02/20/2017. There is however a new area of infiltrate in the right lung base posteriorly which may represent pneumonia. There is a trace of pleural fluid on both sides. IMPRESSION: Mild central vascular prominence, unchanged compared to the prior study. New area of infiltrate in the right lung base with trace bilateral pleural effusions. Dictated by: Dictated on workstation # [id number]
[2018-08-29] MEDS ORDERED: CEFD300C3 PO (14:51)
[2018-08-29 15:22] LABS: FREE T4 (FREE THYROXINE) 1.11 NG/DL (0.70-1.48)
[2018-08-29 15:55] VITALS: BP 137/57
== END 2018-08-29 15:54 | disposition home or self-care (01) ==
LOC: EDUNIT# 11:52 → ER 11:53
DX: N39.0 Urinary tract infection, site not specified (principal); K74.60 Unspecified cirrhosis of liver; R60.0 Localized edema; J18.1 Lobar pneumonia, unspecified organism; E04.9 Nontoxic goiter, unspecified; Z88.0 Allergy status to penicillin; Z87.19 Personal history of other diseases of the digestive system; Z98.890 Other specified postprocedural states
CPT/HCPCS: 36415; 71046; 80053; 81000; 83880; 84439; 84443; 84484; 85007; 85027; 85610; 85730; 87088; 93005; 93970

== ENCOUNTER → 2018-09-06 | Outpatient (CLI) | payer BC ==
[~2018-09-06] MED LIST changes: +CEFD300C3 PO; +CEFU250T80 PO; +FURO-124 PO; +IOHEXOL 350 MG/ML 100 ML (OMNIPAQUE 350) VIAL IV ONE; +NS 100 ML (IVPB) BAG IV ONE; +POTA-51 PO; +RECEIVED CONTRAST (Hold Metformin) IV SCH
[2018-09-06 13:59] LABS: MEAN PLATELET VOLUME 9.4 FL (7.4-10.4); WHITE BLOOD COUNT 4.7 10^3/uL (4.3-11.0)
[2018-09-06 14:27] LABS: ALANINE AMINOTRANSFERASE 14 U/L (0-55); ALBUMIN 2.4 GM/DL (3.2-4.5); ALKALINE PHOSPHATASE 110 U/L (40-136); BILIRUBIN,TOTAL 3.5 MG/DL (0.1-1.0); BUN/CREATININE RATIO 16; CALCIUM 7.9 MG/DL (8.5-10.1); CARBON DIOXIDE 24 MMOL/L (21-32); CHLORIDE 99 MMOL/L (98-107); CREATININE SERUM 0.86 MG/DL (0.60-1.30); GFR ESTIMATED > 60; GLUCOSE 115 MG/DL (70-105); POTASSIUM 3.4 MMOL/L (3.6-5.0); SODIUM 131 MMOL/L (135-145); TOTAL PROTEIN 5.6 GM/DL (6.4-8.2)
--- NOTE | 2018-09-06 15:27 | Diagnostic Imaging Report ---
PROCEDURE: CT abdomen and pelvis with and without contrast. TECHNIQUE: Precontrast acquisitions were acquired through the abdomen and pelvis. Multiple contiguous axial images were obtained through the abdomen and pelvis after the administration of intravenous contrast. INDICATION: Cirrhosis. COMPARISON: No prior studies are available for comparison. FINDINGS: Imaging through the lung bases does show bilateral pleural effusions, [id number], with some associated compressive atelectasis in the bilateral lower lobes. The liver demonstrates a nodular contour, consistent with cirrhosis. No discrete liver mass is seen. Portal vein appears to be patent. Directionality of the portal vein flow cannot be determined with CT. The spleen is enlarged at 15.1 cm. There is moderate abdominal and pelvic ascites present. Features are suggestive of a component of portal hypertension. The pancreas is unremarkable. No adrenal mass is seen. The kidneys are unremarkable. The aorta is calcified but nonaneurysmal. There appears to be diffuse colonic wall thickening present. While this could be secondary to the ascites, the possibility of colitis cannot be entirely excluded. Small bowel loops are normal in caliber. No free air is detected. Unopacified bladder is unremarkable. Uterus is unremarkable. No definite abdominal or pelvic lymphadenopathy is seen. IMPRESSION: 1. Bilateral pleural effusions and bibasilar subsegmental atelectasis. 2. Findings consistent with cirrhosis and portal hypertension. No discrete liver mass is identified. There is moderate abdominal and pelvic ascites present. 3. Diffuse colonic wall thickening. This could be secondary to the ascites but nonspecific colitis cannot be entirely excluded. Results were discussed with Dr. Mcneil prior to this dictation. Dictated by: Dictated on workstation # [id number]
[2018-09-06 15:42] LABS: INR 1.6 (0.8-1.4); PROTHROMBIN TIME PATIENT 18.6 SEC (12.2-14.7)
== END ==
LOC: RAD 13:23
PROVIDERS: ATTEND Family Medicine
DX: J90 Pleural effusion, not elsewhere classified (principal); J98.11 Atelectasis; R18.8 Other ascites; K31.9 Disease of stomach and duodenum, unspecified; K72.90 Hepatic failure, unspecified without coma
CPT/HCPCS: 36415; 74178; 80053; 83615; 85027; 85610; 85730

== ENCOUNTER 2018-09-07 16:25 | Outpatient (RCR) | payer BC, OTHER ==
[~2018-09-07] VITALS: Ht 167.6 cm; Wt 84.9 kg
[~2018-09-07 16:25] MED LIST changes: -ALBUMIN 25% 25 GM/100 ML 100 ML IV ONE; -LIDOCAINE 1% INJ 20 ML 20 ML VIAL INJ ONE
[2018-09-08] VITALS (8 sets, daily range): BP systolic 126–169; BP diastolic 58–71
--- NOTE | 2018-09-08 10:05 | NUR ---
REC'D OP FOR BLOOD TRANSFUSION ACCOMPANIED BY . SEE ASSESSMENT. JAUNDICED. MULTIPLE BRUISES ON BILATERAL ARMS. A/O.
--- NOTE | 2018-09-08 10:25 | NUR ---
#20 IV LT WRIST. CONSENT FOR BLOOD SIGNED. AWAITING PHARMACY FOR PRE-MEDS.
[2018-09-08] MEDS ORDERED: ACETAMINOPHEN 500 MG TAB (TYLENOL) PO NR (10:37)
[2018-09-08] MEDS ORDERED: diphenhydrAMINE 25 MG TAB (BENADRYL) PO NR (10:39)
[2018-09-08] MEDS ORDERED: FUROSEMIDE 40 MG/4 ML INJ (LASIX) IV NR (10:39)
[2018-09-08] MEDS ORDERED: NS IV 500 ML 500 ML IV SCH (10:45)
[2018-09-08] MEDS ORDERED: NS IV 500 ML 500 ML IV ONE (10:45)
--- NOTE | 2018-09-08 14:41 | NUR ---
#2 UNIT RPC'S STARTED. DENIES C/O. RESTING. IV LASIX GIVEN BETWEEN UNITS.
--- NOTE | 2018-09-08 17:46 | NUR ---
BLOOD INFUSED. HL FLUSHED. STAT HH ORDERED FOR 1844.
[2018-09-08 19:04] LABS: HEMOGLOBIN 9.3 G/DL (11.5-16.0)
[2018-10-16] MEDS ORDERED: AZAT50TA16 PO (10:56)
[2018-10-16] MEDS ORDERED: L. A1CAP12 PO (10:56)
[2018-10-16] MEDS ORDERED: SPIR50TA4 PO (10:56)
[2018-10-16] MEDS ORDERED: FURO-125 PO (10:56)
[2018-10-16] MEDS ORDERED: LEVO137T2 PO (10:56)
[2018-10-16] MEDS ORDERED: NAPR220T66 PO (10:56)
== END 2018-12-06 | disposition home or self-care (01) ==
LOC: LAB 16:25 → EDSTATUS 09-28 10:28
PROVIDERS: ATTEND Nurse Practitioner Family
DX: D64.9 Anemia, unspecified (principal); K72.90 Hepatic failure, unspecified without coma
CPT/HCPCS: 36415; 36430; 85014; 85018; 86850; 86900; 86901; 86920; 96374

== ENCOUNTER → 2018-09-07 | Outpatient (CLI) | payer BC ==
[~2018-09-07] VITALS: Ht 167.6 cm; Wt 86.2 kg
[~2018-09-07] MED LIST changes: +ALBUMIN 25% 25 GM/100 ML 100 ML IV ONE; -IOHEXOL 350 MG/ML 100 ML (OMNIPAQUE 350) VIAL IV ONE; +LIDOCAINE 1% INJ 20 ML 20 ML VIAL INJ ONE; -NS 100 ML (IVPB) BAG IV ONE; -RECEIVED CONTRAST (Hold Metformin) IV SCH
[2018-09-07 12:34] LABS: ALBUMIN,BODY FLUID < 0.4 G/DL; GLUCOSE,BODY FLUID 116 MG/DL; TOTAL PROTEIN,BODY FLUID < 0.8 G/DL
[2018-09-07 12:36] LABS: BODY FLUID APPEARENCE CLEAR; BODY FLUID COLOR YELLOW; BODY FLUID SOURCE PERITON
[2018-09-07 12:37] LABS: BODY FLUID RBC COUNT 151 /uL; BODY FLUID WBC TOTAL COUNT 77 /uL
--- NOTE | 2018-09-07 12:37 | Diagnostic Imaging Report ---
INDICATION: Ascites. FINDINGS: The patient was brought to the procedure room and placed on table in the supine position. Ultrasound imaging over the abdomen was performed to evaluate appropriate entry site. The skin of the right lower quadrant was then prepped and draped in the usual sterile fashion. A small amount of 1% lidocaine was utilized for local anesthesia. A paracentesis catheter was advanced into the right lower quadrant peritoneal space. A total of 3.5 L of fluid was removed. Catheter was removed and hemostasis was obtained using manual compression. The patient tolerated the procedure well. IMPRESSION: Ultrasound-guided paracentesis obtaining 3.5 L of fluid. Dictated by: Dictated on workstation # [id number]
[2018-09-07 12:56] LABS: BF OTHER CELLS 93 %; LYMPHOCYTES,BODY FLUID 4 %
== END ==
LOC: RAD 08:26
PROVIDERS: ATTEND Family Medicine
DX: R18.8 Other ascites (principal)
CPT/HCPCS: 49083; 82042; 82945; 84157; 87070; 87075; 87101; 87205; 89051

== ENCOUNTER → 2018-09-26 | Outpatient (CLI) | payer BC ==
[~2018-09-26] VITALS: Ht 167.6 cm; Wt 84.9 kg
[2018-09-26 09:22] LABS: INR 1.4 (0.8-1.4); PROTHROMBIN TIME PATIENT 16.9 SEC (12.2-14.7)
--- NOTE | 2018-09-26 12:58 | Diagnostic Imaging Report ---
EXAMINATION: Paracentesis. INDICATION: Ascites The patient underwent paracentesis on 09/07/2018. At that time 3.5 L of straw colored fluid was removed. For this exam a large collection of fluid was localized in the right lower quadrant by ultrasound. Following aseptic preparation of skin and administration of local anesthesia a 6 [place] catheter was advanced into the fluid collection. Approximately 3.1 L of straw-colored fluid was removed. The patient tolerated the procedure well and was dismissed in good condition. IMPRESSION: There has been a successful paracentesis. 3.1 L of fluid was removed. Dictated by: Dictated on workstation # [id number]
== END ==
LOC: RAD 08:55
PROVIDERS: ATTEND Family Medicine
DX: K72.90 Hepatic failure, unspecified without coma (principal); R18.8 Other ascites
CPT/HCPCS: 36415; 49083; 85610

== ENCOUNTER → 2018-10-15 | Outpatient (CLI) | payer BC ==
[~2018-10-15] MED LIST changes: +AZAT50TA16 PO; +FURO-125 PO; +L. A1CAP12 PO; +LEVO137T2 PO; +NAPR220T66 PO; +SPIR50TA4 PO
[2018-10-15 13:14] LABS: BASOPHILS % (AUTO) 1 % (0-10); EOSINOPHILS # (AUTO) 0.1 10^3/uL (0.0-0.3); EOSINOPHILS % (AUTO) 2 % (0-10); LYMPHOCYTES # (AUTO) 0.4 X 10^3 (1.0-4.0); LYMPHOCYTES % (AUTO) 10 % (12-44); MEAN CORPUSCULAR HEMOGLOBIN 34 PG (25-34); MEAN CORPUSCULAR HGB CONC 34 G/DL (32-36); MEAN CORPUSCULAR VOLUME 102 FL (80-99); MEAN PLATELET VOLUME 9.7 FL (7.4-10.4); MONOCYTES # (AUTO) 0.2 X 10^3 (0.0-1.0); MONOCYTES % (AUTO) 4 % (0-12); NEUTROPHILS # (AUTO) 3.7 X 10^3 (1.8-7.8); NEUTROPHILS % (AUTO) 83 % (42-75); PLATELET COUNT 145 10^3/uL (130-400); RED CELL DISTRIBUTION WIDTH 23.7 % (10.0-14.5); WHITE BLOOD COUNT 4.4 10^3/uL (4.3-11.0)
[2018-10-15 13:21] LABS: HEMATOCRIT 20 % (35-52); HEMOGLOBIN 6.8 G/DL (11.5-16.0)
[2018-10-15 13:29] LABS: ALANINE AMINOTRANSFERASE 9 U/L (0-55); ALBUMIN 2.3 GM/DL (3.2-4.5); ALKALINE PHOSPHATASE 147 U/L (40-136); AMMONIA 25 UMOL/L (11-32); BILIRUBIN,TOTAL 3.2 MG/DL (0.1-1.0); BUN/CREATININE RATIO 18; CALCIUM 7.9 MG/DL (8.5-10.1); CARBON DIOXIDE 23 MMOL/L (21-32); CHLORIDE 102 MMOL/L (98-107); CREATININE SERUM 0.84 MG/DL (0.60-1.30); GFR ESTIMATED > 60; GLUCOSE 96 MG/DL (70-105); SODIUM 132 MMOL/L (135-145); TOTAL PROTEIN 5.7 GM/DL (6.4-8.2)
== END ==
LOC: LAB 12:57
PROVIDERS: ATTEND Nurse Practitioner Family
DX: D64.9 Anemia, unspecified (principal); K74.69 Other cirrhosis of liver; R18.8 Other ascites
CPT/HCPCS: 36415; 80053; 82140; 85025

== ENCOUNTER 2018-10-16 08:00 | Outpatient (RCR) | payer BC ==
[2018-10-16] VITALS (8 sets, daily range): BP systolic 126–141; BP diastolic 46–62
[~2018-10-16] VITALS: Ht 167.6 cm; Wt 84.9 kg
[~2018-10-16 08:00] MED LIST changes: -AZAT50TA16 PO; -FURO-125 PO; -L. A1CAP12 PO; -LEVO137T2 PO; -NAPR220T66 PO; -SPIR50TA4 PO
[2018-10-16] MEDS ORDERED: diphenhydrAMINE 50 MG/ML INJ (BENADRYL) IV ONE (09:30)
[2018-10-16] MEDS ORDERED: FUROSEMIDE 40 MG/4 ML INJ (LASIX) IV ONE (09:30)
[2018-10-16] MEDS ORDERED: NS IV 500 ML 500 ML IV ONE (09:30)
[2018-10-16] MEDS ORDERED: ACETAMINOPHEN 500 MG TAB (TYLENOL) PO ONE (09:30)
[2018-10-16] MEDS ORDERED: L. A1CAP12 PO (10:56)
[2018-10-16] MEDS ORDERED: NAPR220T66 PO (10:56)
[2018-10-16] MEDS ORDERED: FURO-125 PO (10:56)
[2018-10-16] MEDS ORDERED: AZAT50TA16 PO (10:56)
[2018-10-16] MEDS ORDERED: SPIR50TA4 PO (10:56)
[2018-10-16] MEDS ORDERED: LEVO137T2 PO (10:56)
[2018-10-16 13:02] LABS: HEMOGLOBIN 7.7 G/DL (11.5-16.0)
[2018-10-16 16:48] LABS: HEMOGLOBIN 8.6 G/DL (11.5-16.0)
== END 2018-10-16 17:00 | disposition home or self-care (01) ==
LOC: LAB 08:00
PROVIDERS: ATTEND Nurse Practitioner Family
DX: D64.9 Anemia, unspecified (principal)
CPT/HCPCS: 36415; 36430; 85014; 85018; 86850; 86900; 86901; 86920; 96374; 96375

== ENCOUNTER → 2018-12-17 | Outpatient (CLI) | payer BC ==
[~2018-12-17] MED LIST changes: +AZAT50TA16 PO; +FURO-125 PO; +L. A1CAP12 PO; +LEVO137T2 PO; +NAPR220T66 PO; +SPIR50TA4 PO
[2018-12-17 11:36] LABS: HEMOGLOBIN 8.3 G/DL (11.5-16.0)
[2018-12-17 12:18] LABS: FREE T4 (FREE THYROXINE) 1.24 NG/DL (0.70-1.48)
== END ==
LOC: LAB 11:10
PROVIDERS: ATTEND Family Medicine
DX: E03.9 Hypothyroidism, unspecified (principal); D64.9 Anemia, unspecified
CPT/HCPCS: 36415; 84439; 84443; 85014; 85018; 86850; 86900; 86901

== ENCOUNTER → 2019-03-11 | Outpatient (CLI) | payer BC ==
--- NOTE | 2019-03-11 10:28 | Diagnostic Imaging Report ---
INDICATION: Routine screening. COMPARISON: 03/06/2018 and 01/26/2017. TECHNIQUE: 2D and 3D bilateral screening mammography was performed with CAD. FINDINGS: Both breasts are heterogeneously dense, limiting the sensitivity of mammography. The parenchymal pattern is stable. No mass or malignant appearing microcalcifications are seen. The axillae are unremarkable. IMPRESSION: No mammographic features suspicious for malignancy are identified. ACR BI-RADS Category 1: Negative. Result letter will be mailed to the patient. Note: At least 10% of breast cancer is not imaged by mammography. Dictated by: Dictated on workstation # [id number]
== END ==
LOC: RAD 08:37
PROVIDERS: ATTEND Family Medicine
DX: Z12.31 Encounter for screening mammogram for malignant neoplasm of breast (principal)
CPT/HCPCS: 77067

== ENCOUNTER → 2019-03-29 | Outpatient (CLI) | payer BC ==
[2019-03-29 14:26] LABS: BASOPHILS % (AUTO) 0 % (0-10); EOSINOPHILS # (AUTO) 0.1 10^3/uL (0.0-0.3); EOSINOPHILS % (AUTO) 1 % (0-10); HEMATOCRIT 23 % (35-52); HEMOGLOBIN 7.6 G/DL (11.5-16.0); LYMPHOCYTES # (AUTO) 0.4 X 10^3 (1.0-4.0); LYMPHOCYTES % (AUTO) 8 % (12-44); MEAN CORPUSCULAR HEMOGLOBIN 34 PG (25-34); MEAN CORPUSCULAR HGB CONC 34 G/DL (32-36); MEAN CORPUSCULAR VOLUME 101 FL (80-99); MEAN PLATELET VOLUME 9.1 FL (7.4-10.4); MONOCYTES # (AUTO) 0.4 X 10^3 (0.0-1.0); MONOCYTES % (AUTO) 8 % (0-12); NEUTROPHILS # (AUTO) 4.4 X 10^3 (1.8-7.8); NEUTROPHILS % (AUTO) 84 % (42-75); PLATELET COUNT 125 10^3/uL (130-400); RED CELL DISTRIBUTION WIDTH 19.2 % (10.0-14.5); WHITE BLOOD COUNT 5.3 10^3/uL (4.3-11.0)
[2019-03-29 14:50] LABS: ALBUMIN 2.6 GM/DL (3.2-4.5); BILIRUBIN,TOTAL 3.2 MG/DL (0.1-1.0); CALCIUM 7.9 MG/DL (8.5-10.1); CREATININE SERUM 0.95 MG/DL (0.60-1.30); POTASSIUM 3.5 MMOL/L (3.6-5.0); TOTAL PROTEIN 5.9 GM/DL (6.4-8.2)
[2019-03-29 15:16] LABS: NEUTROPHILS % (MANUAL) 83 %
[2019-03-29 15:17] LABS: ANISOCYTOSIS SLIGHT; BAND NEUTROPHILS 4 %; HYPOCHROMASIA SLIGHT; LYMPHOCYTES % (MANUAL) 8 %; MONOCYTES % (MANUAL) 5 %; POLYCHROMASIA SLIGHT; RBC MORPH SEE REFERENCE
[2019-03-29 15:19] LABS: SCHISTOCYTES SLIGHT
== END ==
LOC: LAB 14:09
PROVIDERS: ATTEND Nurse Practitioner Family
DX: D64.9 Anemia, unspecified (principal); K74.60 Unspecified cirrhosis of liver
CPT/HCPCS: 36415; 80053; 85007; 85027

== ENCOUNTER → 2019-04-03 | Outpatient (CLI) | payer BC ==
[~2019-04-03] VITALS: Ht 167.6 cm; Wt 84.9 kg
[~2019-04-03] MED LIST changes: +ACETAMINOPHEN 500 MG TAB (TYLENOL) PO ONE; +NS IV 500 ML 500 ML IV SCH; +diphenhydrAMINE 50 MG/ML INJ (BENADRYL) IVP ONE
[2019-04-03 10:35] VITALS: BP 141/50
[2019-04-03 11:27] VITALS: BP 134/50
[2019-04-03 11:42] VITALS: BP 135/57
[2019-04-03 12:47] VITALS: BP 131/52
[2019-04-03 13:05] LABS: HEMOGLOBIN 7.6 G/DL (11.5-16.0)
== END ==
LOC: SDC 10:12
PROVIDERS: ATTEND Nurse Practitioner Family
DX: D64.9 Anemia, unspecified (principal)
CPT/HCPCS: 36415; 36430; 85014; 85018; 86850; 86900; 86901; 86920

== ENCOUNTER 2019-04-05 09:03 | Outpatient (CLI) | payer BC ==
[~2019-04-05] VITALS: Ht 167.6 cm; Wt 84.9 kg
[~2019-04-05 09:03] MED LIST changes: -ACETAMINOPHEN 500 MG TAB (TYLENOL) PO ONE; -NS IV 500 ML 500 ML IV SCH; -diphenhydrAMINE 50 MG/ML INJ (BENADRYL) IVP ONE
[2019-04-05] MEDS ORDERED: ACETAMINOPHEN 500 MG TAB (TYLENOL) ONE (09:27)
[2019-04-05] MEDS ORDERED: diphenhydrAMINE 50 MG/ML INJ (BENADRYL) ONE (09:27)
[2019-04-05] MEDS ORDERED: CATHETER FLUSH 10 ML SYR IV PRN (09:45)
[2019-04-05] MEDS ORDERED: ACETAMINOPHEN 500 MG TAB (TYLENOL) PO ONE (09:45)
[2019-04-05] MEDS ORDERED: NS IV 500 ML 500 ML IV ONE (09:45)
[2019-04-05] MEDS ORDERED: diphenhydrAMINE 50 MG/ML INJ (BENADRYL) IV ONE (09:45)
[2019-04-05 11:00] VITALS: BP 133/56
[2019-04-05 11:15] VITALS: BP 135/73
[2019-04-05 14:06] VITALS: BP 142/61
[2019-04-05 14:26] LABS: HEMOGLOBIN 8.9 G/DL (11.5-16.0)
[2019-04-05 14:35] VITALS: BP 142/61
[2019-04-05 15:57] VITALS: BP 142/61
== END 2019-04-05 14:35 | disposition home or self-care (01) ==
LOC: SDC 09:03
PROVIDERS: ATTEND Family Medicine
DX: D64.9 Anemia, unspecified (principal)
CPT/HCPCS: 36415; 36430; 85014; 85018; 86850; 86900; 86901; 86920

== ENCOUNTER → 2019-04-10 | Outpatient (CLI) | payer BC ==
[2019-04-10 12:08] LABS: BASOPHILS % (AUTO) 1 % (0-10); EOSINOPHILS # (AUTO) 0.1 10^3/uL (0.0-0.3); EOSINOPHILS % (AUTO) 4 % (0-10); HEMATOCRIT 27 % (35-52); HEMOGLOBIN 8.7 G/DL (11.5-16.0); LYMPHOCYTES # (AUTO) 0.4 X 10^3 (1.0-4.0); LYMPHOCYTES % (AUTO) 15 % (12-44); MEAN CORPUSCULAR HEMOGLOBIN 32 PG (25-34); MEAN CORPUSCULAR HGB CONC 33 G/DL (32-36); MEAN CORPUSCULAR VOLUME 99 FL (80-99); MEAN PLATELET VOLUME 9.4 FL (7.4-10.4); MONOCYTES # (AUTO) 0.2 X 10^3 (0.0-1.0); MONOCYTES % (AUTO) 9 % (0-12); NEUTROPHILS # (AUTO) 1.8 X 10^3 (1.8-7.8); NEUTROPHILS % (AUTO) 72 % (42-75); PLATELET COUNT 125 10^3/uL (130-400); RED CELL DISTRIBUTION WIDTH 18.1 % (10.0-14.5); WHITE BLOOD COUNT 2.5 10^3/uL (4.3-11.0)
[2019-04-10 12:24] LABS: ALANINE AMINOTRANSFERASE 12 U/L (0-55); ALBUMIN 2.5 GM/DL (3.2-4.5); ALKALINE PHOSPHATASE 168 U/L (40-136); BILIRUBIN,TOTAL 2.9 MG/DL (0.1-1.0); BUN/CREATININE RATIO 15; CALCIUM 8.2 MG/DL (8.5-10.1); CARBON DIOXIDE 23 MMOL/L (21-32); CHLORIDE 105 MMOL/L (98-107); GFR ESTIMATED > 60; GLUCOSE 98 MG/DL (70-105); MAGNESIUM 1.9 MG/DL (1.6-2.4); POTASSIUM 3.8 MMOL/L (3.6-5.0); SODIUM 135 MMOL/L (135-145); TOTAL PROTEIN 5.8 GM/DL (6.4-8.2)
== END ==
LOC: LAB 11:42
PROVIDERS: ATTEND Family Medicine
DX: D64.9 Anemia, unspecified (principal); E87.1 Hypo-osmolality and hyponatremia; E87.6 Hypokalemia; K74.60 Unspecified cirrhosis of liver
CPT/HCPCS: 36415; 80053; 83735; 85025

== ENCOUNTER → 2019-04-18 | Outpatient (CLI) | payer BC ==
[2019-04-18 14:42] LABS: BASOPHILS % (AUTO) 0 % (0-10); EOSINOPHILS # (AUTO) 0.1 10^3/uL (0.0-0.3); EOSINOPHILS % (AUTO) 3 % (0-10); HEMATOCRIT 25 % (35-52); HEMOGLOBIN 8.1 G/DL (11.5-16.0); LYMPHOCYTES # (AUTO) 0.4 X 10^3 (1.0-4.0); LYMPHOCYTES % (AUTO) 14 % (12-44); MEAN CORPUSCULAR HEMOGLOBIN 32 PG (25-34); MEAN CORPUSCULAR HGB CONC 33 G/DL (32-36); MEAN CORPUSCULAR VOLUME 98 FL (80-99); MONOCYTES # (AUTO) 0.1 X 10^3 (0.0-1.0); MONOCYTES % (AUTO) 5 % (0-12); NEUTROPHILS # (AUTO) 1.9 X 10^3 (1.8-7.8); NEUTROPHILS % (AUTO) 77 % (42-75); PLATELET COUNT 105 10^3/uL (130-400); RED CELL DISTRIBUTION WIDTH 16.5 % (10.0-14.5); WHITE BLOOD COUNT 2.5 10^3/uL (4.3-11.0)
[2019-04-18 14:51] LABS: INR 1.3 (0.8-1.4); PROTHROMBIN TIME PATIENT 16.6 SEC (12.2-14.7)
== END ==
LOC: LAB 14:16
DX: Z01.812 Encounter for preprocedural laboratory examination (principal)
CPT/HCPCS: 36415; 85025; 85610

== ENCOUNTER → 2019-04-18 | Outpatient (CLI) | payer BC ==
[2019-04-18 15:09] LABS: EOSINOPHILS % (AUTO) 3 % (0-10); HEMATOCRIT 25 % (35-52); HEMOGLOBIN 8.1 G/DL (11.5-16.0); LYMPHOCYTES % (AUTO) 14 % (12-44); MEAN CORPUSCULAR HEMOGLOBIN 32 PG (25-34); MEAN CORPUSCULAR HGB CONC 33 G/DL (32-36); MEAN CORPUSCULAR VOLUME 98 FL (80-99); MONOCYTES % (AUTO) 5 % (0-12); NEUTROPHILS % (AUTO) 77 % (42-75); PLATELET COUNT 105 10^3/uL (130-400); RED CELL DISTRIBUTION WIDTH 16.5 % (10.0-14.5); WHITE BLOOD COUNT 2.5 10^3/uL (4.3-11.0)
[2019-04-18 15:10] LABS: BASOPHILS % (AUTO) 0 % (0-10); EOSINOPHILS # (AUTO) 0.1 10^3/uL (0.0-0.3); LYMPHOCYTES # (AUTO) 0.4 X 10^3 (1.0-4.0); MONOCYTES # (AUTO) 0.1 X 10^3 (0.0-1.0); NEUTROPHILS # (AUTO) 1.9 X 10^3 (1.8-7.8)
== END ==
LOC: LAB 14:03
PROVIDERS: ATTEND Nurse Practitioner Family
DX: D64.9 Anemia, unspecified (principal)
CPT/HCPCS: 36415; 85025

== ENCOUNTER 2019-04-22 08:29 | Outpatient (CLI) | payer BC ==
[~2019-04-22] VITALS: Ht 167 cm; Wt 79.0 kg
[2019-04-22] VITALS (7 sets, daily range): BP systolic 129–142; BP diastolic 47–67
[2019-04-22] MEDS ORDERED: diphenhydrAMINE 50 MG/ML INJ (BENADRYL) IV ONE (08:45)
[2019-04-22] MEDS ORDERED: NS IV 500 ML 500 ML IV SCH (08:45)
[2019-04-22] MEDS ORDERED: FUROSEMIDE 40 MG/4 ML INJ (LASIX) IV ONE (08:45)
[2019-04-22] MEDS ORDERED: ACETAMINOPHEN 500 MG TAB (TYLENOL) PO ONE (08:45)
[2019-04-22] MEDS ORDERED: FUROSEMIDE 40 MG/4 ML INJ (LASIX) ONE (11:35)
[2019-04-22 14:55] LABS: HEMOGLOBIN 9.8 G/DL (11.5-16.0)
== END 2019-04-22 15:10 | disposition home or self-care (01) ==
LOC: SDC 08:29
PROVIDERS: ATTEND Family Medicine
DX: D64.9 Anemia, unspecified (principal)
CPT/HCPCS: 36415; 36430; 85014; 85018; 86850; 86900; 86901; 86920

== ENCOUNTER 2019-06-16 11:32 | Inpatient (IN) | payer BC ==
[~2019-06-16] VITALS: Ht 167.7 cm; Wt 80.8 kg
[2019-06-16 12:06] LABS: BASOPHILS % (AUTO) 0 % (0-10); EOSINOPHILS # (AUTO) 0.1 10^3/uL (0.0-0.3); EOSINOPHILS % (AUTO) 1 % (0-10); HEMATOCRIT 25 % (35-52); LYMPHOCYTES # (AUTO) 0.4 X 10^3 (1.0-4.0); LYMPHOCYTES % (AUTO) 5 % (12-44); MEAN CORPUSCULAR HEMOGLOBIN 32 PG (25-34); MEAN CORPUSCULAR HGB CONC 32 G/DL (32-36); MEAN CORPUSCULAR VOLUME 99 FL (80-99); MEAN PLATELET VOLUME 10.8 FL (7.4-10.4); MONOCYTES # (AUTO) 0.6 X 10^3 (0.0-1.0); MONOCYTES % (AUTO) 7 % (0-12); NEUTROPHILS # (AUTO) 7.3 X 10^3 (1.8-7.8); NEUTROPHILS % (AUTO) 87 % (42-75); PLATELET COUNT 145 10^3/uL (130-400); RED CELL DISTRIBUTION WIDTH 16.7 % (10.0-14.5); WHITE BLOOD COUNT 8.5 10^3/uL (4.3-11.0)
--- NOTE | 2019-06-16 12:17 | ED General ---
General Chief Complaint: General Problems/Pain Stated Complaint: FALL/FLUID IN ABDOMEN Nursing Triage Note: TO TRIAGE WALKING WITH CANE. STATES SHE FELL AT 0330 THIS AM ET THINKS SHE TRIPPED OVER THE CAT. ALSO COMPLAINS OF FLUID ON HER ABD THAT IS CHRONIC BUT IT IS BECOMING WORSE. ALSO WOULD LIKE BLOOD WORK DONE BECASE HER HMG WAS 8.1 ON 06/05 Nursing Sepsis Screen: No Definite Risk History of Present Illness Date Seen by Provider: Jun 16, 2019 Time Seen by Provider: 11:40 Initial Comments 63-year-old female presents for increased abdominal fluid, fall at approximately 0330 this morning and dry cough, no dyspnea or chest pain. 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 She was recently evaluated at [facility] to be placed on the Liver Transplant list. She reports approximately 5 pound weight gain over the last week or 2. Last blood transfusion 04/22/19 here, previous February at [facility]. Last Paracentesis was 09/26/18 in Radiology, 3.1 liters drained. At the time of the fall earlier today, the patient denies head injury, loss of consciousness, neck injury, rib, abdominal, or back pain. She states possibly tripping over the cat. Her was home and she was able to summons him to help her get up. She was using her cane. However, she carries her cane while walking in the ED and is not using it for support or balance. She has not taken her Lasix 40 mg or spironolactone 25 mg today, however she took it yesterday. She is not on K+, this was stopped a month or two ago, she take 1/2 of a gatorade daily. She does not take any anti-coagulants or ASA. Timing/Duration: 6-7 Days Severity: Mild Associated Systoms: No Chest Pain; Cough (nonproductive); No Diaphoresis, No Fever/Chills, No Headaches, No Loss of Appetite; Malaise; No Nausea/Vomiting, No Rash, No Seizure, No Shortness of Air, No Syncope, No Weakness, No Other (Jaundice) Allergies and Home Medications Allergies Coded Allergies: Penicillins (Verified Adverse Reaction, Mild, N/V, 04/05/19) Home Medications Azathioprine 50 Mg Tablet, 100 MG PO DAILY, (Reported) Furosemide 20 Mg Tablet, 20 MG PO DAILY, (Reported) L. Acidophilus/L. Rhamnosus 1 Each Capsule, 2 EACH PO DAILY, (Reported) Levothyroxine Sodium 137 Mcg Tablet, 137 MCG PO DAILY, (Reported) Naproxen Sodium 220 Mg Tablet, 2 TAB PO DAILY PRN for PAIN-MILD TO MODERATE, (Reported) Spironolactone 50 Mg Tablet, 50 MG PO DAILY, (Reported) Patient Home Medication List Home Medication List Reviewed: Yes Review of Systems Review of Systems Constitutional: no symptoms reported, see HPI Respiratory: see HPI, cough (non-productive); No short of breath Gastrointestinal: see HPI; No abdominal pain, No constipation, No diarrhea, No heartburn, No jaundice, No nausea, No vomiting; other (ascites) Genitourinary: no symptoms reported, see HPI Skin: no symptoms reported, see HPI; No change in color, No pruritus, No rash All Other Systems Reviewed Negative Unless Noted: Yes Past Tixanui-Bgpdql-Hhdqtz Hx Past Med/Social Hx: Reviewed Nursing Past Med/Soc Hx Patient Social History Alcohol Use: Denies Use Recreational Drug Use: No Smoking Status: Never a Smoker Recent Foreign Travel: No Contact w/Someone Who Travel: No Recent Infectious Disease Expo: No Immunizations Up To Date Tetanus Booster (TDap): Unknown Date of Pneumonia Vaccine: Sep 20, 2012 Date of Influenza Vaccine: Sep 20, 2012 Past Medical History Surgeries: Yes (LIVER BX ) Respiratory: No Cardiac: No Neurological: No Reproductive Disorders: No 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 4.0oz. 84.110847rb; 28.00 BMI Method:Stated General Appearance: No Apparent Distress, WD/WN Eyes: Bilateral Eye Normal Inspection, Bilateral Eye PERRL, Bilateral Eye EOMI HEENT: PERRL/EOMI, TMs Normal, Normal ENT Inspection, Pharynx Normal, Other (oromucosa pink and moist.) Respiratory: Chest Non Tender, Lungs Clear (Right lobes and left upper lung), No Accessory Muscle Use, No Respiratory Distress, Decreased Breath Sounds (Absent left base); No Respiratory Distress Cardiovascular: Regular Rate, Rhythm, No Murmur, Normal Peripheral Pulses Gastrointestinal: Normal Bowel Sounds, Non Tender, Soft, Distended (ascites), Hernia (umbilical hernia, nontender), Other Extremity: Normal Capillary Refill, Normal Range of Motion, Non Tender, No Calf Tenderness, Pedal Edema (3+ pitting, I lateral lower extremities) Neurologic/Psychiatric: Alert, Oriented x3, No Motor/Sensory Deficits, Normal Mood/Affect Skin: Normal Color, Warm/Dry, Ecchymosis (multiple to UE and LE, patient reports brusing easily ); No Jaundice Lymphatic: No Adenopathy Progress/Results/Core Measures Suspected Sepsis Recent Fever Within 48 Hours: No Infection Criteria Present: None New/Unexplained Altered Menta: No Sepsis Screen: No Definite Risk SIRS Temperature: Pulse: 99 Respiratory Rate: 16 Laboratory Tests 06/16/19 11:59: White Blood Count 8.5 Blood Pressure 153 /73 Mean: 99 Laboratory Tests 06/16/19 11:59: Creatinine 1.22, INR Comment 1.3, Platelet Count 145, Total Bilirubin 3.1H Results/Orders Lab Results Laboratory Tests Test 06/16/19 11:59 06/16/19 12:22 Range/Units White Blood Count 8.5 4.3-11.0 10^3/uL Red Blood Count 2.54 L 4.35-5.85 10^6/uL Hemoglobin 8.0 L 11.5-16.0 G/DL Hematocrit 25 L 35-52 % Mean Corpuscular Volume 99 80-99 FL Mean Corpuscular Hemoglobin 32 25-34 PG Mean Corpuscular Hemoglobin Concent 32 32-36 G/DL Red Cell Distribution Width 16.7 H 10.0-14.5 % Platelet Count 145 130-400 10^3/uL Mean Platelet Volume 10.8 H 7.4-10.4 FL Neutrophils (%) (Auto) 87 H 42-75 % Lymphocytes (%) (Auto) 5 L 12-44 % Monocytes (%) (Auto) 7 0-12 % Eosinophils (%) (Auto) 1 0-10 % Basophils (%) (Auto) 0 0-10 % Neutrophils # (Auto) 7.3 1.8-7.8 X 10^3 Lymphocytes # (Auto) 0.4 L 1.0-4.0 X 10^3 Monocytes # (Auto) 0.6 0.0-1.0 X 10^3 Eosinophils # (Auto) 0.1 0.0-0.3 10^3/uL Basophils # (Auto) 0.0 0.0-0.1 10^3/uL Neutrophils % (Manual) 86 % Lymphocytes % (Manual) 4 % Monocytes % (Manual) 7 % Band Neutrophils 3 % Blood Morphology Comment NORMAL Prothrombin Time 17.2 H 12.2-14.7 SEC INR Comment 1.3 0.8-1.4 Activated Partial Thromboplast Time 32 24-35 SEC Sodium Level 134 L 135-145 MMOL/L Potassium Level 3.4 L 3.6-5.0 MMOL/L Chloride Level 103 98-107 MMOL/L Carbon Dioxide Level 20 L 21-32 MMOL/L Anion Gap 11 5-14 MMOL/L Blood Urea Nitrogen 21 H 7-18 MG/DL Creatinine 1.22 0.60-1.30 MG/DL Estimat Glomerular Filtration Rate 44 BUN/Creatinine Ratio 17 Glucose Level 136 H 70-105 MG/DL Calcium Level 8.0 L 8.5-10.1 MG/DL Corrected Calcium 9.2 8.5-10.1 MG/DL Total Bilirubin 3.1 H 0.1-1.0 MG/DL Aspartate Amino Transf (AST/SGOT) 27 5-34 U/L Alanine Aminotransferase (ALT/SGPT) 12 0-55 U/L Alkaline Phosphatase 140 H 40-136 U/L Total Protein 6.1 L 6.4-8.2 GM/DL Albumin 2.5 L 3.2-4.5 GM/DL Urine Color ORANGE Urine Clarity SL CLOUDY Urine pH 5.5 5-9 Urine Specific [place] 1.025 H 1.016-1.022 Urine Protein TRACE NEGATIVE Urine Glucose (UA) NEGATIVE NEGATIVE Urine Ketones TRACE H NEGATIVE Urine Nitrite POSITIVE NEGATIVE Urine Bilirubin 2+ H NEGATIVE Urine Urobilinogen 4.0 < = 1.0 MG/DL Urine Leukocyte Esterase TRACE NEGATIVE Urine RBC (Auto) 3+ H NEGATIVE Urine RBC NONE /HPF Urine WBC TNTC H /HPF Urine Squamous Epithelial Cells >50 H /HPF Urine Crystals NONE /LPF Urine Bacteria LARGE H /HPF Urine Casts NONE /LPF Urine Mucus MODERATE H /LPF Urine Culture Indicated YES My Orders Orders - MAGDA TRINH OMAIRA Cbc With Automated Diff (06/16/19 11:46) Comprehensive Metabolic Panel (06/16/19 11:46) Manual Differential (06/16/19 11:59) Chest Pa/Lat (2 View) (06/16/19 12:17) Ua Culture If Indicated (06/16/19 12:30) Urine Culture (06/16/19 12:22) Ct Chest/Abdomen/Pelvis W (06/16/19 13:05) Protime With Inr (06/16/19 13:22) Partial Thromboplastin Time (06/16/19 13:22) Iohexol Injection (Omnipaque 350 Mg/Ml 1 (06/16/19 13:45) Received Contrast (Hold Metformin- Contr (06/16/19 13:45) Ns (Ivpb) (Sodium Chloride 0.9% Ivpb Bag (06/16/19 13:45) Medications Given in ED Current Medications Medications Dose Ordered Sig/Soy Route Start Time Stop Time Status Last Admin Dose Admin Iohexol 100 ml ONCE ONCE IV 06/16/19 13:45 06/16/19 13:46 DC 06/16/19 13:36 100 ML Sodium Chloride 100 ml ONCE ONCE IV 06/16/19 13:45 06/16/19 13:46 DC 06/16/19 13:37 100 ML Vital Signs/I&O 06/16/19 06/16/19 06/16/19 11:35 14:05 15:01 Temp 36.6 Pulse 99 89 96 Resp 16 18 18 B/P (MAP) 153/73 (99) 177/39 (85) 121/50 Pulse Ox 98 97 100 O2 Delivery Room Air Room Air Capillary Refill : Less Than 3 Seconds Blood Pressure Mean: 99 POS Progress Note : Time: 11:40 Progress Note Patient seen and evaluated, will obtain labs, chest x-ray, Lasix 40 mg IV and monitor. 1215 labs essentially stable at this time, hemoglobin 8 and hematocrit 25. Awaiting Chest x-ray. Discussed with patient, if chest x-ray stable, she could have outpatient US Paracentesis. No signs of bacterial peritonitis. 1300 Chest xay shows possible rib fx and hemothorax on left. Will get CT chest and abdomen. Dr. Zurita consulted, agreed with plan of care. Patient continues to have stable VS, no dyspnea or chest discomfort. 1345 CT results discussed with the patient. [address] Zurita about CT, will consult patient and plan paracentesis and thoracentesis tomorrow. [address] Loaiza, agreeable with admission. Diagnostic Imaging Diagonstic Imaging: Xray Plain Films/CT/US/NM/MRI: chest Comments NAME: AMBROSIO ARREDONDO [facility] REC#: [id number] PT STATUS: REG ER : 1955 PHYSICIAN: MAGDA TRINH ADMIT DATE: 06/16/19/ER Draft POSDate of Exam:06/16/19 CHEST PA/LAT (2 VIEW) INDICATION: Fall. TIME OF EXAM: 12:34 p.m. COMPARISON: Correlation is made with prior chest from 08/29/2018. FINDINGS: Moderate-sized left pleural effusion has developed. Right lung is clear. Heart size is stable. No pneumothorax is seen. There is questionable lower left lateral rib fractures. IMPRESSION: Moderate left effusion and probable nondisplaced lower left rib fractures. Hemothorax cannot be excluded. There is some associated atelectasis in left base. No other abnormality is detected. Dictated on workstation # [id number] Dict: 06/16/19 1238 Trans: 06/16/19 1245 [id number] Interpreted by: BALJIT LENNON MD Electronically signed by: Reviewed: Reviewed by Me Diagonstic Imaging: CT Plain Films/CT/US/NM/MRI: chest, abdomen, pelvis Comments NAME: AMBROSIO ARREDONDO [facility] REC#: [id number] PT STATUS: REG ER : 1955 PHYSICIAN: MAGDA TRINH ADMIT DATE: 06/16/19/ER Signed Date of Exam:06/16/19 CT CHEST/ABDOMEN/PELVIS W PROCEDURE: CT chest, abdomen, and pelvis with contrast. TECHNIQUE: Multiple contiguous axial images were obtained through the chest, abdomen, and pelvis after the administration of intravenous contrast. Auto Exposure Controls were utilized during the CT exam to meet ALARA standards for radiation dose reduction. INDICATION: Left lung infiltrate and bloating as well as leg swelling. COMPARISON is made with prior CT abdomen and pelvis from 09/06/2018. CT CHEST: Moderate to large effusion on the left is noted, layering dependently to the thickness of approximately 8 cm. No right-sided effusion is identified. No pericardial effusion is identified. No definite axillary, hilar or mediastinal lymphadenopathy is seen. Parenchymal evaluation does show some compressive atelectasis in the left lower lobe. The right lung is clear. IMPRESSION: Moderate to large left pleural effusion with compressive left lower lobe atelectasis. No other significant abnormality is seen. CT ABDOMEN AND PELVIS: Liver again demonstrates a nodular contour consistent with cirrhosis. No discrete liver mass is identified. Gallbladder is absent surgically. There is no biliary ductal dilatation. The pancreas and spleen are unremarkable. No adrenal mass is seen. Kidneys are unremarkable. Large abdominal and pelvic ascites is again noted. There is a fat-containing umbilical hernia containing a small amount of ascites as well. The bowel loops are normal caliber. Significant wall thickening of the ascending portions of the transverse colon are again noted. No well-formed fluid collection or abscess is seen. There is no free air. The uterus and unopacified bladder are unremarkable. Aorta is non-aneurysmal. IMPRESSION: 1. Cirrhosis. No discrete liver mass is seen. There is large abdominal and pelvic ascites. Diffuse significant thickening involving the right colon and portions of the transverse colon appear similar to prior CT from August. Dictated by: Dictated on workstation # [id number] Dict: 06/16/19 1355 Trans: 06/16/19 1413 [facility] [id number] Interpreted by: BALJIT LENNON MD Electronically signed by: BALJIT LENNON MD 06/16/19 1413 Departure Impression Primary Impression: Chronic liver failure Qualified Codes: K72.10 - Chronic hepatic failure without coma Additional Impressions: Fall Qualified Codes: W19.XXXA - Unspecified fall, initial encounter Ascites Qualified Codes: R18.8 - Other ascites UTI (urinary tract infection) Qualified Codes: N30.01 - Acute cystitis with hematuria Disposition: ADMITTED INPATIENT Condition: Stable Admissions Decision to Admit Reason: Admit from ER (General) Decision to Admit/Date: Jun 16, 2019 Time/Decision to Admit Time: 14:40 Departure-Patient Inst. Referrals: ASHUTOSH HUTCHINS MD (PCP/Family) Primary Care Physician Copy Copies To 1: ASHUTOSH HUTCHINS MD, AMY ARNP Jun 16, 2019 12:17 POS
[2019-06-16 12:22] LABS: BAND NEUTROPHILS 3 %; LYMPHOCYTES % (MANUAL) 4 %; MONOCYTES % (MANUAL) 7 %; NEUTROPHILS % (MANUAL) 86 %; RBC MORPH NORMAL
[2019-06-16 12:24] LABS: ALBUMIN 2.5 GM/DL (3.2-4.5); BILIRUBIN,TOTAL 3.1 MG/DL (0.1-1.0); CREATININE SERUM 1.22 MG/DL (0.60-1.30); POTASSIUM 3.4 MMOL/L (3.6-5.0); TOTAL PROTEIN 6.1 GM/DL (6.4-8.2)
[2019-06-16 12:37] LABS: BILIRUBIN,URINE 2+ (NEGATIVE); CLARITY,URINE SL CLOUDY; COLOR,URINE ORANGE; GLUCOSE, URINE (UA) NEGATIVE (NEGATIVE); KETONES,URINE TRACE (NEGATIVE); LEUKOCYTE ESTERASE ,URINE TRACE (NEGATIVE); NITRITE,URINE POSITIVE (NEGATIVE); PH,URINE 5.5 (5-9); PROTEIN,URINE TRACE (NEGATIVE)
[2019-06-16 12:45] LABS: BACTERIA,URINE LARGE /HPF; SQUAMOUS EPITHELIAL CELL,UR >50 /HPF; WBC,URINE TNTC /HPF
--- NOTE | 2019-06-16 12:46 | Diagnostic Imaging Report ---
INDICATION: Fall. TIME OF EXAM: 12:34 p.m. COMPARISON: Correlation is made with prior chest from 08/29/2018. FINDINGS: Moderate-sized left pleural effusion has developed. Right lung is clear. Heart size is stable. No pneumothorax is seen. There is questionable lower left lateral rib fractures. IMPRESSION: Moderate left effusion and probable nondisplaced lower left rib fractures. Hemothorax cannot be excluded. There is some associated atelectasis in left base. No other abnormality is detected. Dictated by: Dictated on workstation # [id number]
[2019-06-16 13:43] LABS: INR 1.3 (0.8-1.4); PROTHROMBIN TIME PATIENT 17.2 SEC (12.2-14.7)
[2019-06-16] MEDS ORDERED: HOLD METFORMIN - RECEIVED CONTRAST 20 ML VIAL IV SCH (13:45)
[2019-06-16] MEDS ORDERED: IOHEXOL 350 MG/ML 100 ML (OMNIPAQUE 350) VIAL IV ONE (13:45)
[2019-06-16] MEDS ORDERED: NS 100 ML (IVPB) BAG IV ONE (13:45)
--- NOTE | 2019-06-16 13:46 | NUR ---
Francine cohn in ED - 06/16/19 at 1348 by PMCCLURE [facility] HERE TO GET PATIENT.
[2019-06-16 14:05] VITALS: BP 177/39
--- NOTE | 2019-06-16 14:05 | Diagnostic Imaging Report ---
PROCEDURE: CT chest, abdomen, and pelvis with contrast. TECHNIQUE: Multiple contiguous axial images were obtained through the chest, abdomen, and pelvis after the administration of intravenous contrast. Auto Exposure Controls were utilized during the CT exam to meet ALARA standards for radiation dose reduction. INDICATION: Left lung infiltrate and bloating as well as leg swelling. COMPARISON is made with prior CT abdomen and pelvis from 09/06/2018. CT CHEST: Moderate to large effusion on the left is noted, layering dependently to the thickness of approximately 8 cm. No right-sided effusion is identified. No pericardial effusion is identified. No definite axillary, hilar or mediastinal lymphadenopathy is seen. Parenchymal evaluation does show some compressive atelectasis in the left lower lobe. The right lung is clear. IMPRESSION: Moderate to large left pleural effusion with compressive left lower lobe atelectasis. No other significant abnormality is seen. CT ABDOMEN AND PELVIS: Liver again demonstrates a nodular contour consistent with cirrhosis. No discrete liver mass is identified. Gallbladder is absent surgically. There is no biliary ductal dilatation. The pancreas and spleen are unremarkable. No adrenal mass is seen. Kidneys are unremarkable. Large abdominal and pelvic ascites is again noted. There is a fat-containing umbilical hernia containing a small amount of ascites as well. The bowel loops are normal caliber. Significant wall thickening of the ascending portions of the transverse colon are again noted. No well-formed fluid collection or abscess is seen. There is no free air. The uterus and unopacified bladder are unremarkable. Aorta is non-aneurysmal. IMPRESSION: 1. Cirrhosis. No discrete liver mass is seen. There is large abdominal and pelvic ascites. Diffuse significant thickening involving the right colon and portions of the transverse colon appear similar to prior CT from August. Dictated by: Dictated on workstation # [id number]
[2019-06-16 15:05] VITALS: BP 121/50
--- NOTE | 2019-06-16 15:05 | NUR ---
AMBROSIO ARREDONDO admitted to room 412-1, with an admitting diagnosis of ASCITES AND UTI AND PLURAL EFFUSION, on 06/16/19 from ER via W/C, accompanied by STAFF.AMBROSIO ARREDONDO introduced to surroundings, call light, bed controls, phone, TV, temperature control, lights, meal times, smoking policy, visitor policy, side rail policy, bathrooms and showers. Patient Rights given to patient in the handbook.AMBROSIO ARREDONDO verbalizes understanding that [facility] is not responsible for the loss or damage to any personal effects or valuables that are kept in the patients posession during their hospitalization. The following Patient Care Plans were discussed with the PT: Discharge Planning, PAIN CONTROL,IV THERAPY, and TESTS AND PROCEDURES. AMBROSIO ARREDONDO verbalizes understanding of Interdisciplinary Patient Education. Patient and/or family were informed about the Rapid Response Team and its purpose.
[2019-06-16 15:30] VITALS: BP 126/86
[2019-06-16] MEDS ORDERED: ACET-2267 PO (15:46)
[2019-06-16] MEDS ORDERED: PANT40TA3 PO (15:49)
[2019-06-16] MEDS ORDERED: ACETAMINOPHEN 500 MG TAB (TYLENOL) PO PRN ×2 (16:00→16:15)
[2019-06-16] MEDS ORDERED: LACTULOSE SYRUP 10GM/15ML (ENULOSE) 30ML UDC PO PRN (16:00)
[2019-06-16] MEDS ORDERED: MELATONIN 3 MG TABLET PO PRN (16:00)
[2019-06-16] MEDS ORDERED: PATIENT MAY USE OWN MEDS, ALL PO SCH (16:00)
[2019-06-16] MEDS ORDERED: ONDANSETRON 4 MG/2 ML (SDV) Z0FRAN IV PRN ×2 (16:00→16:15)
[2019-06-16] MEDS ORDERED: ONDANSETRON 4 MG (ZOFRAN) ORAL DISSOLVE TAB PO PRN (16:00)
[2019-06-16] MEDS ORDERED: POLYETHYLENE GLYCOL 17 GM (MIRALAX) PACK PO PRN (16:00)
[2019-06-16] MEDS ORDERED: CIPROFLOXACIN 400 MG/D5W 200 ML (PRE-MIX) IV SCH (16:03)
[2019-06-16] MEDS ORDERED: IBUPROFEN 600 MG (MOTRIN) TAB PO PRN (16:15)
[2019-06-16 16:33] VITALS: BP 133/65
[2019-06-16] MEDS ORDERED: ENOXAPARIN 40 MG/0.4 ML (LOVENOX) SYR SC SCH (16:45)
[2019-06-16] MEDS: cefTRIAXone FOR IV USE 2,000 MG in WATER (STERILE) FOR INJECTION 20 ML IV SCH (16:54)
[2019-06-16] MEDS: NS IV 1000 ML 1,000 ML IV SCH (16:54)
[2019-06-16] MEDS: ENOXAPARIN 40 MG/0.4 ML (LOVENOX) SYR SC SCH (16:55)
[2019-06-16 17:13] VITALS: BP 133/65
[2019-06-16] MEDS ORDERED: RT-ALBUTEROL SULF 2.5 MG/3 ML PRE-MIX VIAL INH PRN (17:30)
[2019-06-16 20:49] VITALS: BP 122/64
[2019-06-17] VITALS (14 sets, daily range): BP systolic 113–156; BP diastolic 55–68
[2019-06-17 05:23] LABS: BASOPHILS % (AUTO) 0 % (0-10); EOSINOPHILS # (AUTO) 0.2 10^3/uL (0.0-0.3); EOSINOPHILS % (AUTO) 4 % (0-10); HEMATOCRIT 22 % (35-52); LYMPHOCYTES # (AUTO) 0.5 X 10^3 (1.0-4.0); LYMPHOCYTES % (AUTO) 12 % (12-44); MEAN CORPUSCULAR HEMOGLOBIN 31 PG (25-34); MEAN CORPUSCULAR HGB CONC 31 G/DL (32-36); MEAN CORPUSCULAR VOLUME 100 FL (80-99); MEAN PLATELET VOLUME 10.4 FL (7.4-10.4); MONOCYTES # (AUTO) 0.4 X 10^3 (0.0-1.0); MONOCYTES % (AUTO) 10 % (0-12); NEUTROPHILS # (AUTO) 3.2 X 10^3 (1.8-7.8); NEUTROPHILS % (AUTO) 74 % (42-75); PLATELET COUNT 129 10^3/uL (130-400); RED CELL DISTRIBUTION WIDTH 16.8 % (10.0-14.5); WHITE BLOOD COUNT 4.3 10^3/uL (4.3-11.0)
[2019-06-17 05:38] LABS: ALBUMIN 2.1 GM/DL (3.2-4.5); BILIRUBIN,TOTAL 1.8 MG/DL (0.1-1.0); CALCIUM 7.5 MG/DL (8.5-10.1); POTASSIUM 3.5 MMOL/L (3.6-5.0); TOTAL PROTEIN 5.2 GM/DL (6.4-8.2)
[2019-06-17] MEDS: FUROSEMIDE 40 MG/4 ML INJ (LASIX) IV SCH (06:50)
--- NOTE | 2019-06-17 08:16 | Progress Note - Hospitalist ---
RUBIN MITCHELL [facility] 06/17/19 0816: Subjective HPI/CC On Admission Date Seen by Provider: Jun 17, 2019 Time Seen by Provider: 07:30 Ascites/Cirrhosis, UTI, Pleural Effusion Subjective/Events-last exam Patient seemed comfortable and in no distress this morning. She stated that she was unable to sleep well last night, but couldn't attribute it to anything. She stated that she didn't have any symptoms with her UTI, and cannot comment on any change with urination. She did state that she is coughing more frequently, producing a clear mucus. The amount seems to be increasing, but there has been no change in the appearance. She is worried about developing pneumonia. She also stated that her feet have become more swollen, and that the usually measures to decreasing the swelling are not helping. She states using SCD's as DVT prophylaxis with no issues there. She was last seen at [facility] two weeks ago for a pretransplant check up. She stated that she was given something to help her have BM's but has not needed to use it. Review of Systems General: No Chills, No Night Sweats, No Fatigue, No Malaise, No Appetite, No Other HEENT: No Head Aches, No Visual Changes, No Eye Pain, No Ear Pain, No Dysphasia, No Sinus Congestion, No Post Nasal Drip, No Sore Throat, No Other Pulmonary: No Dyspnea; Cough (clear productive cough increasing in frequency ); No Pleuritic Chest Pain, No Other Cardiovascular: No: Chest Pain, Palpitations, Orthopnea, Paroxysmal Noc. Dyspnea, Edema, Lt Headedness, Other Gastrointestinal: No: Nausea, Vomiting, Abdominal Pain, Diarrhea, Constipation, Melena, Hematochezia, Other Genitourinary: No Dysuria, No Frequency, No Incontinence, No Hematuria, No Retention, No Other Musculoskeletal: No: other, neck pain, shoulder pain, arm pain, back pain, hand pain, leg pain, foot pain Neurological: No: Weakness, Numbness, Incoordination, Change in speech, Confusion, Seizures, Other Focused Exam Respiratory: Chest Non Tender, No Accessory Muscle Use, No Respiratory Distress Cardiovascular: Regular Rate, Rhythm, Normal Peripheral Pulses Peripheral Pulses: 2+ Dorsalis Pedis (R), 2+ Left Dors-Pedis (L), 2+ Radial Pulses (R), 2+ Radial Pulses (L) Skin: normal color, warm/dry Objective Exam Vital Signs Vital Signs Date Time Temp Pulse Resp B/P (MAP) Pulse Ox O2 Delivery O2 Flow Rate FiO2 06/17/19 04:00 36.8 89 18 125/67 (86) 97 Room Air Capillary Refill : Less Than 3 Seconds General Appearance: No Apparent Distress, WD/WN HEENT: PERRL/EOMI Neck: Full Range of Motion, Normal Inspection, Supple Respiratory: Chest Non Tender, No Accessory Muscle Use, No Respiratory Distress, Decreased Breath Sounds (L base due to pleural effusion ) Cardiovascular: Regular Rate, Rhythm, Normal Peripheral Pulses Gastrointestinal: Normal Bowel Sounds, No Pulsatile Mass, Non Tender, Soft, Distended (Ascites due to chronic liver disease ) Extremity: Normal Capillary Refill, Non Tender, No Calf Tenderness, Pedal Edema Neurologic/Psychiatric: Alert, Oriented x3, No Motor/Sensory Deficits, Normal Mood/Affect Skin: Normal Color, Warm/Dry Lymphatic: No Adenopathy Results/Procedures Lab Laboratory Tests 06/16/19 11:59 06/17/19 04:40 06/17/19 04:42 Patient resulted labs reviewed. Assessment/Plan Assessment and Plan Assess & Plan/Chief Complaint Assessment: 1. Pulmonary: - Pleural Effusion: Monitor breathing and breath sounds - Breathing treaments if needed - Incentive spirometry to keep L lung base functioning 2. GI: - Chronic Liver Disease - Ascites: Loop diuresis and low Na diet - Pedal Edema: SCD and elevation of feet Clinical Quality Measures DVT/VTE Risk/Contraindication: Risk Factor Score Per Nursin RFS Level Per Nursing on Admit: 3=High ASHUTOSH HUTCHINS MD 06/17/19 1625: Subjective HPI/CC On Admission Date Seen by Provider: Jun 17, 2019 Time Seen by Provider: 08:45 ASCITES, URINARY TRACT INFECTION Subjective/Events-last exam SEE MY HISTORY AND PHYSICAL NOTES Objective Exam General Appearance: No Apparent Distress, WD/WN HEENT: PERRL/EOMI Neck: Supple Respiratory: Chest Non Tender, No Accessory Muscle Use, Decreased Breath Sounds (IN BASES BILATERALLY) Cardiovascular: Regular Rate, Rhythm Gastrointestinal: Normal Bowel Sounds, Distended (Ascites due to chronic liver disease ), Other (+FLUID WAVE) Extremity: Pedal Edema (TO THIGHS) Neurologic/Psychiatric: Alert, Oriented x3, No Motor/Sensory Deficits, Normal Mood/Affect Skin: Warm/Dry Lymphatic: No Adenopathy Assessment/Plan Assessment and Plan Assess & Plan/Chief Complaint URINARY TRACT INFECTION PLEURAL EFFUSION ASCITES CHRONIC CIRRHOSIS - END STAGE LIVER FAILURE ANEMIA POST-SURGICAL HYPOTHYROIDISM URINARY TRACT INFECTION - ROCEPHIN INJECTION - MONITOR URINE CULTURE PLEURAL EFFUSION AND ASCITES - DISCUSSED WITH THE PATIENT - DR. CANO CONSULTED - HE WILL PERFORM PARACENTESIS AND THORACENTESIS CHRONIC CIRRHOSIS - END STAGE LIVER FAILURE - RESTART AZATHIOPRINE ANEMIA - 2 UNIT BLOOD TRANSFUSION TODAY POST-SURGICAL HYPOTHYROIDISM - RESTART HOME MEDICATION REGIMEN ONCE RECONCILED Supervisory-Addendum Brief Verification & Attestation Participated in pt care: history, MDM, physical Personally performed: exam, history, MDM Care discussed with: Medical Student Procedures: n/a Results interpretation: Verified all documentation SEE MY H AND P I HAVE PERSONALLY EXAMINED THE PATIENT, I HAVE REVIEWED MEDICAL STUDENT DOCUMENTATION AND AGREE WITH DOCUMENTATION - SEE MY ADDENDUM RUBIN MITCHELL MED STUD Jun 17, 2019 08:16 ASHUTOSH KAM MD Jun 17, 2019 16:25 POS
--- NOTE | 2019-06-17 09:03 | Consultation - Surgery ---
[facility] 06/17/19 0903: History of Present Illness History of Present Illness Patient Consulted On(see/time) 06/17/19 08:57 Date Seen by Provider: Jun 17, 2019 Time Seen by Provider: 08:00 History of Present Illness C/C: Abdominal Ascites Christina is a 63 y/o female that presented with increased abdominal fluid. She also states she fell the other day. 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 She also has a hx chronic anemia. She was recently evaluated at [facility] for a liver transplant. She states she has no abdominal pain from the ascites but it is to the point where she had it drained last time on 09/16/18. Diuretics us improved the reduction of the ascites in the past but it has not been helping the last couple of weeks. She denies any radiation of pain but has noticed an increase in edema of her legs and feet. She does not have any respiratory issues at this time. Imaging showed moderate to large pleural effusion with compressive left lower lobe atelectasis, and large abdominal and pelvic ascites, with diffuse thickening of the right colon and parts of the transverse. . Allergies and Home Medications Allergies Coded Allergies: Penicillins (Verified Adverse Reaction, Mild, N/V, 04/05/19) Home Medications Acetaminophen 500 Mg Tablet, 1,000 MG PO Q8H PRN for PAIN-MILD (1-4), (Reported) Azathioprine 50 Mg Tablet, 100 MG PO 2200, (Reported) TAKE 2 (50MG) TABS TO EQUAL 100MG Cyanocobalamin (Vitamin B-12) 2,500 Mcg Tablet, 2,500 MCG PO DAILY, (Reported) Ergocalciferol (Vitamin D2) 400 Unit Tablet, 400 UNIT PO DAILY, (Reported) Furosemide 20 Mg Tablet, 40 MG PO DAILY, (Reported) TAKES 2 TABS (20MG) TO EQUAL 40MG Levothyroxine Sodium 137 Mcg Tablet, 137 MCG PO DAILY, (Reported) Pantoprazole Sodium 40 Mg Tablet.dr, 40 MG PO DAILY, (Reported) Spironolactone 50 Mg Tablet, 100 MG PO DAILY, (Reported) TAKES 2 TABS (50MG) TO EQUAL 100MG DAILY Past Xhcorsz-Yosrfc-Bextjm Hx Patient Social History Alcohol Use: Denies Use Recreational Drug Use: No Smoking Status: Never a Smoker Recent Foreign Travel: No Contact w/Someone Who Travel: No Recent Infectious Disease Expo: No Recent Hopitalizations: Yes (February (3 DAY 'S) CHECKUP FOR LIVER TRANSPLANT) Physical Abuse Screen: No Sexual Abuse: No Immunizations Up To Date Tetanus Booster (TDap): Unknown Date of Pneumonia Vaccine: Sep 20, 2012 Date of Influenza Vaccine: Apr 30, 2019 Seasonal Allergies Seasonal Allergies: No Surgeries History of Surgeries: Yes (LIVER BX ) Respiratory History of Respiratory Disorde: No Cardiovascular History of Cardiac Disorders: No Neurological History of Neurological Disord: No Reproductive System Hx Reproductive Disorders: No Sexually Transmitted Disease: No 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 Genitourinary History of Genitourinary Disor: No Gastrointestinal History of Gastrointestinal Di: Yes (ESOPAGEAL BLEEDING) Gastrointestinal Disorders: Liver Disease/Jaundice, Hiatal Hernia, Cirrhosis, Gall Bladder Disease Musculoskeletal History of Musculoskeletal Dis: No Endocrine History of Endocrine Disorders: Yes (GOITERS) HEENT History of HEENT Disorders: No Cancer History of Cancer: No Psychosocial History of Psychiatric Problem: No Integumentary History of Skin or Integumenta: No Blood Transfusions History of Blood Disorders: Yes (ANEMIA) Adverse Reaction to a Blood Tr: No Family Medical History Family Medial History: Colon cancer G8 SISTER MS 19 FATHER G8 SISTER Review of Systems-General Constitutional: no symptoms reported EENTM: no symptoms reported Respiratory: phlegm; No short of breath Cardiovascular: No chest pain; edema; No palpitations Gastrointestinal: No diarrhea, No nausea, No vomiting Genitourinary: no symptoms reported Musculoskeletal: other (tenderness to the left elbow from fall ) Skin: other (Some bruising related to the fall plus some petechiae/purpura from her medication ) Psychiatric/Neurological: No Symptoms Reported Physical Exam-General Problems Physical Exam Vital Signs Vital Signs - First Documented 06/16/19 11:35 Temp 36.6 Pulse 99 Resp 16 B/P (MAP) 153/73 (99) Pulse Ox 98 O2 Delivery Room Air Capillary Refill : Less Than 3 Seconds General Appearance: no apparent distress Eyes: Bilateral Eye PERRL, Bilateral Eye EOMI HEENT: PERRL/EOMI Neck: non-tender, supple Respiratory: chest non-tender, no respiratory distress, no accessory muscle use Cardiovascular: normal peripheral pulses, regular rate, rhythm; No friction rub Peripheral Pulses: 1+ Dorsalis Pedis (R), 1+ Left Dors-Pedis (L); 2+ Radial Pulses (R), 2+ Radial Pulses (L) Gastrointestinal: non tender, distended, other (Reducible umbilical hernia, ) Extremities: normal range of motion, normal capillary refill, pedal edema, swelling (left elbow with abrasion ) Neurologic/Psychiatric: no motor/sensory deficits, alert, normal mood/affect, oriented x 3 Skin: warm/dry Lymphatic: no adenopathy Data Review Labs Laboratory Tests 06/16/19 11:59: White Blood Count 8.5, Red Blood Count 2.54L, Hemoglobin 8.0L, Hematocrit 25L, Mean Corpuscular Volume 99, Mean Corpuscular Hemoglobin 32, Mean Corpuscular Hemoglobin Concent 32, Red Cell Distribution Width 16.7H, Platelet Count 145, Mean Platelet Volume 10.8H, Neutrophils (%) (Auto) 87H, Lymphocytes (%) (Auto) 5L, Monocytes (%) (Auto) 7, Eosinophils (%) (Auto) 1, Basophils (%) (Auto) 0, Neutrophils # (Auto) 7.3, Lymphocytes # (Auto) 0.4L, Monocytes # (Auto) 0.6, Eosinophils # (Auto) 0.1, Basophils # (Auto) 0.0, Neutrophils % (Manual) 86, Lymphocytes % (Manual) 4, Monocytes % (Manual) 7, Band Neutrophils 3, Blood Morphology Comment NORMAL, Prothrombin Time 17.2H, INR Comment 1.3, Activated Partial Thromboplast Time 32, Sodium Level 134L, Potassium Level 3.4L, Chloride Level 103, Carbon Dioxide Level 20L, Anion Gap 11, Blood Urea Nitrogen 21H, Creatinine 1.22, Estimat Glomerular Filtration Rate 44, BUN/Creatinine Ratio 17, Glucose Level 136H, Calcium Level 8.0L, Corrected Calcium 9.2, Total Bilirubin 3.1H, Aspartate Amino Transf (AST/SGOT) 27, Alanine Aminotransferase (ALT/SGPT) 12, Alkaline Phosphatase 140H, Total Protein 6.1L, Albumin 2.5L 06/16/19 12:22: Urine Color ORANGE, Urine Clarity SL CLOUDY, Urine pH 5.5, Urine Specific [place] 1.025H, Urine Protein TRACE, Urine Glucose (UA) NEGATIVE, Urine Ketones TRACEH, Urine Nitrite POSITIVE, Urine Bilirubin 2+H, Urine Urobilinogen 4.0, Urine Leukocyte Esterase TRACE, Urine RBC (Auto) 3+H, Urine RBC NONE, Urine WBC TNTCH, Urine Squamous Epithelial Cells >50H, Urine Crystals NONE, Urine Bacteria LARGEH, Urine Casts NONE, Urine Mucus MODERATEH, Urine Culture Indicated YES 06/17/19 04:40: Sodium Level 135, Potassium Level 3.5L, Chloride Level 107, Carbon Dioxide Level 20L, Anion Gap 8, Blood Urea Nitrogen 20H, Creatinine 1.00, Estimat Glomerular Filtration Rate 56, BUN/Creatinine Ratio 20, Glucose Level 97, Calcium Level 7.5L, Corrected Calcium 9.0, Total Bilirubin 1.8H, Aspartate Amino Transf (AST/SGOT) 22, Alanine Aminotransferase (ALT/SGPT) 11, Alkaline Phosphatase 120, Total Protein 5.2L, Albumin 2.1L 06/17/19 04:42: White Blood Count 4.3, Red Blood Count 2.23L, Hemoglobin 7.0L, Hematocrit 22L, Mean Corpuscular Volume 100H, Mean Corpuscular Hemoglobin 31, Mean Corpuscular Hemoglobin Concent 31L, Red Cell Distribution Width 16.8H, Platelet Count 129L, Mean Platelet Volume 10.4, Neutrophils (%) (Auto) 74, Lymphocytes (%) (Auto) 12, Monocytes (%) (Auto) 10, Eosinophils (%) (Auto) 4, Basophils (%) (Auto) 0, Neutrophils # (Auto) 3.2, Lymphocytes # (Auto) 0.5L, Monocytes # (Auto) 0.4, Eosinophils # (Auto) 0.2, Basophils # (Auto) 0.0 Assessment/Plan Assessment/Plan Assessment/Plan Chronic Anemia, Cirrhosis of the liver secondary to autoimmune hepatitis, Umbil ical hernia, asymptomatic UTI - pt is to be NPO - plan for paracentesis and possible thoracocentesis - continue medical management The patient was explained the risks and benefits of performing a paracentesis and thoracocentesis. The pt understood and agreed to continue with the procedure. Clinical Quality Measures DVT/VTE Risk/Contraindication: Risk Factor Score Per Nursin RFS Level Per Nursing on Admit: 3=High YAKOV ZURITA DO 06/17/191929: History of Present Illness History of Present Illness History of Present Illness Patient is a 63 year old female with increasing abdominal distention with history of autoimmune hepatitis and cirrhosis. Patient has had to have several previous paracentesis. Having some shortness of breath. Had fall the other day maybe old rib fracture on the left but has moderate left pleural effusion. CT scan and x rays reviewed. Allergies and Home Medications Allergies Coded Allergies: Penicillins (Verified Adverse Reaction, Mild, N/V, 04/05/19) Home Medications Acetaminophen 500 Mg Tablet, 1,000 MG PO Q8H PRN for PAIN-MILD (1-4), (Reported) Azathioprine 50 Mg Tablet, 100 MG PO 2200, (Reported) TAKE 2 (50MG) TABS TO EQUAL 100MG Cyanocobalamin (Vitamin B-12) 2,500 Mcg Tablet, 2,500 MCG PO DAILY, (Reported) Ergocalciferol (Vitamin D2) 400 Unit Tablet, 400 UNIT PO DAILY, (Reported) Furosemide 20 Mg Tablet, 40 MG PO DAILY, (Reported) TAKES 2 TABS (20MG) TO EQUAL 40MG Levothyroxine Sodium 137 Mcg Tablet, 137 MCG PO DAILY, (Reported) Pantoprazole Sodium 40 Mg Tablet.dr, 40 MG PO DAILY, (Reported) Spironolactone 50 Mg Tablet, 100 MG PO DAILY, (Reported) TAKES 2 TABS (50MG) TO EQUAL 100MG DAILY Patient Home Medication List Home Medication List Reviewed: Yes Past Buqnexu-Idcmgs-Xeeldy Hx Surgeries Surgeries: Gallbladder Gastrointestinal Gastrointestinal Disorders: Liver Disease/Jaundice, Hiatal Hernia, Cirrhosis, Gall Bladder Disease Family Medical History Significant Family History: Cancer Family Medial History: Colon cancer G8 SISTER MS 19 FATHER G8 SISTER Review of Systems-General Constitutional: no symptoms reported EENTM: no symptoms reported Respiratory: phlegm, short of breath Cardiovascular: no symptoms reported, edema (b/l lower ext) Gastrointestinal: abdominal pain (distention); No diarrhea, No nausea, No vomiting Genitourinary: no symptoms reported Musculoskeletal: other (tenderness to the left elbow from fall ) Skin: other (Some bruising related to the fall plus some petechiae/purpura from her medication ) Psychiatric/Neurological: No Symptoms Reported Physical Exam-General Problems Physical Exam General Appearance: WD/WN, no apparent distress HEENT: PERRL/EOMI Neck: non-tender, supple Respiratory: chest non-tender, no respiratory distress Cardiovascular: regular rate, rhythm Gastrointestinal: non tender, distended, other (Reducible umbilical hernia, fluid wave) Rectal: deferred Back: other (slight tenderness left side upper back with bruise) Extremities: normal range of motion, pedal edema, swelling (left elbow with abrasion ) Neurologic/Psychiatric: 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 Supervisory-Addendum Brief Verification & Attestation Participated in pt care: history, MDM, physical Personally performed: exam, history, MDM, supervision of care Care discussed with: Medical Student Procedures: n/a Results interpretation: Verified all documentation Verification and Attestation of Medical Student E/M Service A medical student performed and documented this service in my presence. I reviewed and verified all information documented by the medical student and made modifications to such information, when appropriate. I personally performed the physical exam and medical decision making. Yakov Zurita, Jun 17, 2019,19:47 [facility] Jun 17, 2019 09:03 YAKOV CAMPBELL DO Jun 17, 2019 19:30 POS
[2019-06-17] MEDS ORDERED: PANT40TA2 PO (10:19)
[2019-06-17] MEDS ORDERED: ACET-77 PO (10:22)
[2019-06-17] MEDS ORDERED: ERGO400T6 PO (10:28)
[2019-06-17] MEDS ORDERED: CYAN250010 PO (10:28)
--- NOTE | 2019-06-17 10:29 | NUR ---
SPOKE WITH PT WELL CALLING [facility] AND GOING OVER THE EXT MED HISTORY TO COMPLETE THE MED REC. PT WAS ABLE TO TELL ME ALL HER MEDS AND HOW/WHEN SHE TAKES THEM. THE FOLLOWING ARE FILL DATES THAT DID NOT SHOW UP ON THE EXT MED HIS: 03-10-2019 PANTOPRAZOLE #90/90DS 05-25-2019 LEVOTHYROXINE #30/30DS 06-05-2019 FUROSEMIDE #60/30DS 06-05-2019 SPIROLACTONE #60/30DS OTC MEDS: TYLENOL VITAMIN B VITAMIN D
--- NOTE | 2019-06-17 12:10 | NUR ---
PARACENTESIS DONE AT BEDSIDE BY DR CANO, ULTRASOUND HERE, 4250 ML FLUID RETURN, FLUID SENT TO LAB TO BE WASTED, NO TESTING ORDERED ON FLUID, PATIENT SYLVIA WELL
[2019-06-17] MEDS: NS IV 1000 ML 1,000 ML IV SCH (12:38)
--- NOTE | 2019-06-17 13:30 | NUR ---
THORACENTESIS DONE AT BEDSIDE BY DR CANO, ULTRASOUND HERE, 1400ML RETURN, CLEAR YELLOW, SENT TO LAB FOR TESTING, SYLVIA WELL
--- NOTE | 2019-06-17 13:45 | NUR ---
DR HUTCHINS NOTIFIED OF RESULTS OF PARACENTESIS AND THORACENTESIS, INSTRUCTED NURSE TO HOLD LOVENOX TODAY, ORDER GIVEN TO TRANSFUSE 2 UNITS [facility] TODAY
--- NOTE | 2019-06-17 14:16 | Diagnostic Imaging Report ---
Indication: Postthoracentesis. Compared: 06/16/2019 Findings: There has been reduction in left-sided pleural fluid with no pneumothorax. There has been some improved expansion of the lingula and left lower lobe. The right lung clear. Impression: Decreased right pleural fluid and improved right basilar expansion with no pneumothorax or adverse change. Dictated by: Dictated on workstation # [id number]
[2019-06-17 14:35] LABS: GLUCOSE,BODY FLUID 102 MG/DL; LDH,BODY FLUID 61 U/L
[2019-06-17 15:08] LABS: BODY FLUID APPEARENCE CLEAR; BODY FLUID COLOR YELLOW; BODY FLUID SOURCE THORACENTESIS
[2019-06-17 15:09] LABS: BF OTHER CELLS 8 %; BODY FLUID RBC COUNT 675 /uL; BODY FLUID WBC TOTAL COUNT 17 /uL; LYMPHOCYTES,BODY FLUID 78 %
[2019-06-17] MEDS ORDERED: NS IV 500 ML 500 ML ONE (15:15)
[2019-06-17] MEDS ORDERED: NS IV 500 ML 500 ML IV SCH (15:30)
--- NOTE | 2019-06-17 15:40 | NUR ---
FIRST UNIT PRC HUNG TO INFUSE AT 75ML HOUR
[2019-06-17] MEDS: ENOXAPARIN 40 MG/0.4 ML (LOVENOX) SYR SC SCH (15:45)
--- NOTE | 2019-06-17 16:11 | NUR ---
Pt is Jain. Slack Cooper provided prayer and Communion.
--- NOTE | 2019-06-17 16:30 | Diagnostic Imaging Report ---
INDICATION: Pleural effusion. Sonographic guidance of the left chest demonstrates a large left pleural effusion. Marking was provided for thoracentesis by Dr. Zurita. IMPRESSION: Large left pleural effusion. Dictated by: Dictated on workstation # [id number]
--- NOTE | 2019-06-17 16:40 | History & Physical ---
History of Present Illness History of Present Illness Reason for visit/HPI PT IS A 63 Y/O FEMALE WHO WAS ADMITTED TO THE HOSPITAL FOR URINARY TRACT INFECTION, PLEURAL EFFUSION, ASCITES AND SHORTNESS OF BREATH. PER HER 'S REPORT, SHE HAD BEEN FEELING POORLY FOR SEVERAL DAYS, WITH PROGRESSIVE WEAKNESS AND SHORTNESS OF BREATH WHICH LET TO THE PT BEING ADMITTED THROUGH THE EMERGENCY DEPARTMENT LAST NIGHT. Date of Admission Jun 16, 2019 at 14:40 Date Seen by a Provider: Jun 17, 2019 Time Seen by a Provider: 08:45 I consulted on this patient on 06/17/19 0845 Attending Physician Ashutosh Mcneil MD Admitting Physician Ashutosh Mcneil MD Consult Allergies and Home Medications Allergies Coded Allergies: Penicillins (Verified Adverse Reaction, Mild, N/V, 04/05/19) Home Medications Acetaminophen 500 Mg Tablet, 1,000 MG PO Q8H PRN for PAIN-MILD (1-4), (Reported) Azathioprine 50 Mg Tablet, 100 MG PO 2200, (Reported) TAKE 2 (50MG) TABS TO EQUAL 100MG Cyanocobalamin (Vitamin B-12) 2,500 Mcg Tablet, 2,500 MCG PO DAILY, (Reported) Ergocalciferol (Vitamin D2) 400 Unit Tablet, 400 UNIT PO DAILY, (Reported) Furosemide 20 Mg Tablet, 40 MG PO DAILY, (Reported) TAKES 2 TABS (20MG) TO EQUAL 40MG Levothyroxine Sodium 137 Mcg Tablet, 137 MCG PO DAILY, (Reported) Pantoprazole Sodium 40 Mg Tablet.dr, 40 MG PO DAILY, (Reported) Spironolactone 50 Mg Tablet, 100 MG PO DAILY, (Reported) TAKES 2 TABS (50MG) TO EQUAL 100MG DAILY Patient Home Medication List Home Medication List Reviewed: Yes Past Gcfbhia-Dzlgiy-Pdvgzi Hx Past Med/Social Hx: Reviewed Nursing Past Med/Soc Hx Patient Social History Marrital Status: Living Status: LIVES WITH SPOUSE Employed/Student: retired Alcohol Use: Denies Use Recreational Drug Use: No Smoking Status: Never a Smoker 2nd Hand Smoke Exposure: No Physical Abuse Screen: No Sexual Abuse: No Recent Foreign Travel: No Contact w/other who traveled: No Recent Hopitalizations: No Recent Infectious Disease Expo: No Immunizations Up To Date Tetanus Booster (TDap): Unknown Date of Pneumonia Vaccine: Sep 20, 2012 Date of Influenza Vaccine: Apr 30, 2019 Seasonal Allergies Seasonal Allergies: No Past Medical History Surgeries: Abdominal, Thyroidectomy Currently Using CPAP: No Reproductive: No Sexually Transmitted Disease: No Menopausal Gastrointestinal: Liver Disease/Jaundice, Hiatal Hernia, Cirrhosis, Gall Bladder Disease Hearing Impairment: Denies History of Blood Disorders: Yes (ANEMIA) Adverse Reaction to Blood Vazquez: No Family History Reviewed and Corrections made Colon cancer G8 SISTER MS 19 FATHER G8 SISTER Review of Systems Constitutional: No chills, No fever, No malaise; weakness EENTM: No hoarseness, No throat pain Respiratory: No cough, No dyspnea on exertion, No short of breath Cardiovascular: No chest pain, No palpitations Gastrointestinal: abdominal pain (RUQ); No nausea, No vomiting Genitourinary: no symptoms reported Musculoskeletal: No back pain; muscle weakness Skin: no symptoms reported Psychiatric/Neurological: No Symptoms Reported All Other Systems Reviewed Negative Unless Noted: Yes Physical Exam Vital Signs Vital Signs - First Documented 06/16/19 11:35 Temp 36.6 Pulse 99 Resp 16 B/P (MAP) 153/73 (99) Pulse Ox 98 O2 Delivery Room Air Capillary Refill : Less Than 3 Seconds Height, Weight, BMI Height: 5'6.00" Weight: 187lbs. 4.0oz. 84.485885so; 28.41 BMI Method:Stated General Appearance: No Apparent Distress, WD/WN Eyes: Bilateral Eye Normal Inspection, Bilateral Eye PERRL, Bilateral Eye EOMI HEENT: PERRL/EOMI, Pharynx Normal Neck: Full Range of Motion, Non Tender, Supple Respiratory: Chest Non Tender, Lungs Clear, Decreased Breath Sounds (IN BASES BILATERALLY) Cardiovascular: Regular Rate, Rhythm, No Murmur, Normal Peripheral Pulses Gastrointestinal: Normal Bowel Sounds, Non Tender, Soft, Other (+ FLUID WAVE) Rectal: Deferred Extremity: Normal Capillary Refill, Normal Inspection, Normal Range of Motion, Non Tender, No Calf Tenderness, Pedal Edema Neurologic/Psychiatric: Alert, Oriented x3, No Motor/Sensory Deficits, Normal Mood/Affect, tools programmer II-XII Norm as Tested Skin: Normal Color, Warm/Dry Lymphatic: No Adenopathy Assessment/Plan Assessment and Plan URINARY TRACT INFECTION PLEURAL EFFUSION ASCITES CHRONIC CIRRHOSIS - END STAGE LIVER FAILURE ANEMIA POST-SURGICAL HYPOTHYROIDISM Admission Diagnosis URINARY TRACT INFECTION PLEURAL EFFUSION ASCITES CHRONIC CIRRHOSIS - END STAGE LIVER FAILURE ANEMIA POST-SURGICAL HYPOTHYROIDISM URINARY TRACT INFECTION - ROCEPHIN INJECTION - MONITOR URINE CULTURE PLEURAL EFFUSION AND ASCITES - DISCUSSED WITH THE PATIENT - DR. CANO CONSULTED - HE WILL PERFORM PARACENTESIS AND THORACENTESIS CHRONIC CIRRHOSIS - END STAGE LIVER FAILURE - RESTART AZATHIOPRINE ANEMIA - 2 UNIT BLOOD TRANSFUSION TODAY POST-SURGICAL HYPOTHYROIDISM - RESTART HOME MEDICATION REGIMEN ONCE RECONCILED Admission Status: Inpatient Order (span 2 midnights) Reason for Inpatient Admission: PT CHANGED FROM OBSERVATION TO INPATIENT STATUS DUE TO HER ASCITES, NEED FOR BLOOD TRANSFUSION AND HER URINARY TRACT INFECTION - SHE IS AT HIGH RISK FOR SBP Clinical Quality Measures DVT/VTE Risk/Contraindication: Risk Factor Score Per Nursin RFS Level Per Nursing on Admit: 3=High ASHUTOSH MCNEIL MD Jun 17, 2019 16:40 POS
[2019-06-17] MEDS: cefTRIAXone FOR IV USE 2,000 MG in WATER (STERILE) FOR INJECTION 20 ML IV SCH (18:32)
--- NOTE | 2019-06-17 18:43 | Diagnostic Imaging Report ---
INDICATION: Ascites. Sonographic interrogation of the right and left lower quadrants was performed. There is large amount of ascites in both right and left lower quadrant. Marking was provided for Dr. Zurita for paracentesis. IMPRESSION: Large abdominal ascites. Dictated by: Dictated on workstation # [id number]
[2019-06-17] MEDS ORDERED: azaTHIOprine (IMURAN) 50 MG TAB PO SCH (22:00)
--- NOTE | 2019-06-17 22:01 | Progress Note-Post Operative ---
Post-Operative Progess Note Surgeon (s)/Accounting Software Specialist (s) Surgeon VISHAL CANO DO Accounting Software Specialist: na Pre-Operative Diagnosis left pleural effusion, recurrent ascites Post-Operative Diagnosis same Procedure & Operative Findings Date of Procedure 06/17/19 Procedure Performed/Findings u/s guided left thoracentesis and u/s guided paracentesis Anesthesia Type 1% lidocaine Estimated Blood Loss Estimated blood loss (mL): min Specimens/Packing Specimens Removed left pleural fluid Packing: Dictation #[id number] VISHAL CANO DO Jun 17, 2019 22:01 POS
--- NOTE | 2019-06-17 22:56 | OPERATIVE REPORT ---
DATE OF SERVICE: 06/17/2019 PREOPERATIVE DIAGNOSIS: Left pleural effusion, recurrent ascites. POSTOPERATIVE DIAGNOSIS: Left pleural effusion, recurrent ascites. PROCEDURES: 1. Ultrasound-guided left thoracentesis. 2. Ultrasound-guided paracentesis. SURGEON: Vishal Zurita DO ANESTHESIA: 1% lidocaine. ESTIMATED BLOOD LOSS: Minimal. COMPLICATIONS: None. SPECIMENS: Left pleural fluid. INDICATIONS: The patient is a 63-year-old female with cirrhosis due to autoimmune hepatitis. She has recurrent ascites causing discomfort and needs to have this drained. She also has a moderate to large left pleural effusion, which she wishes to have drained as well. She understands all risks and benefits and wished to proceed with procedure. Consent was signed in the chart. DESCRIPTION OF PROCEDURE: Ultrasound was used to isolate a large pocket on the abdomen, which was in the right lower quadrant. The area was then prepped and draped. Timeout was performed. Local anesthetic was infiltrated in the right lower quadrant where ultrasound was demonstrating the largest pocket of fluid. An #11 blade scalpel was used to make a small skin incision. [id number] needle and catheter were then advanced until straw colored fluid was returned. The catheter was advanced and the needle was removed. A total of 4250 mL of straw colored fluid was removed from the abdomen. The patient is feeling significantly better after having the drainage. The patient was then repositioned. Ultrasound was used to isolate the best pocket in the left chest. The area was prepped and draped in sterile fashion. Ultrasound was demonstrating the best pocket. Local anesthetic was infiltrated and #11 blade scalpel was used to make a skin incision. [id number] needle and catheter were then advanced through the incision until straw colored fluid was returned. The catheter was then advanced. A total of 1400 mL of straw colored fluid was returned. The catheter was then removed and sterile bandage was applied. Chest x-ray pending. A new kit was used for each procedure. The patient's breathing has improved. She tolerated both procedures without any complications. Job ID: [id number] DocumentID: [id number] Dictated Date: 06/17/2019 22:00:50 Log Loader Helper Date: 06/17/2019 22:55:18 Dictated By: VISHAL ZURITA DO
[2019-06-18 04:30] VITALS: BP 137/64
[2019-06-18] MEDS: FUROSEMIDE 40 MG/4 ML INJ (LASIX) IV SCH (06:15)
[2019-06-18] MEDS ORDERED: LEVOTHYROXINE 112 MCG (LEVOTHROID) TAB PO SCH (06:30)
[2019-06-18] MEDS ORDERED: LEVOTHYROXINE 25 MCG (LEVOTHROID) TAB PO SCH (06:30)
[2019-06-18] MEDS ORDERED: PANTOPRAZOLE 40 MG (PROTONIX) TAB PO SCH (07:00)
[2019-06-18] MEDS ORDERED: CYANOCOBALAMIN 1,000 MCG (VITAMIN B-12) TABLET PO SCH (07:00)
[2019-06-18 07:16] LABS: HEMOGLOBIN 10.2 G/DL (11.5-16.0)
[2019-06-18 08:00] VITALS: BP 126/73
--- NOTE | 2019-06-18 08:40 | Discharge Inst-Complex ---
PDI Reconcile Patient Problems Problems Reviewed?: Yes Med Rec & Follow Up Appt. Continued Medications: Acetaminophen (Acetaminophen) 500 Mg Tablet 1000 MG PO Q8H PRN for PAIN-MILD (1-4), TAB Azathioprine (Imuran) 50 Mg Tablet 100 MG PO 2200, TAB TAKE 2 (50MG) TABS TO EQUAL 100MG Cyanocobalamin (Vitamin B-12) (Vitamin B12) 2,500 Mcg Tablet 2500 MCG PO DAILY, TAB Ergocalciferol (Vitamin D2) (Vitamin D2) 400 Unit Tablet 400 UNIT PO DAILY, TAB Furosemide (Lasix) 20 Mg Tablet 40 MG PO DAILY, TAB TAKES 2 TABS (20MG) TO EQUAL 40MG Levothyroxine Sodium (Levothyroxine Sodium) 137 Mcg Tablet 137 MCG PO DAILY, TAB Pantoprazole Sodium (Protonix) 40 Mg Tablet.dr 40 MG PO DAILY, TAB Spironolactone (Spironolactone) 50 Mg Tablet 100 MG PO DAILY, TAB TAKES 2 TABS (50MG) TO EQUAL 100MG DAILY Prescription: Other Patient Instructions: repeat labs on of this week and again on 06/25/19 - see RX Activity, Diet and PDI Resume Normal Activity: Yes Discharge Diet: Regular Diet Drink 6-8 Glasses of Fluid/Day: Yes Return to The Hospital For: any concern for life-threatening illness or injury Symptoms to Reoprt to : Appetite Changes, Swelling Increased, Fever Over 101 Degrees F, Pain/Pressure in Chest, Dizziness/Fainting, Nausea/Vomiting, Shortness of Breath For Problems or Questions: Contact Your Physician, Go to Emergency Room Infection Signs and Symptoms: Temperature Above 101 F ASHUTOSH HUTCHINS MD Jun 18, 2019 08:40 POS
[2019-06-18] MEDS ORDERED: CEFD300C3 PO (08:42)
--- NOTE | 2019-06-18 08:50 | Discharge Summary ---
Diagnosis/Chief Complaint Date of Admission Jun 17, 2019 at 16:27 Date of Discharge Discharge Date: Jun 18, 2019 Discharge Time: 1330 Admission Diagnosis Admission Diagnosis URINARY TRACT INFECTION PLEURAL EFFUSION ASCITES CHRONIC CIRRHOSIS - END STAGE LIVER FAILURE ANEMIA POST-SURGICAL HYPOTHYROIDISM Discharge Diagnosis URINARY TRACT INFECTION PLEURAL EFFUSION ASCITES CHRONIC CIRRHOSIS - END STAGE LIVER FAILURE ANEMIA POST-SURGICAL HYPOTHYROIDISM Reason Hospital Visit PT IS A 63 Y/O FEMALE WHO WAS ADMITTED TO THE HOSPITAL FOR URINARY TRACT INFECTION, PLEURAL EFFUSION, ASCITES AND SHORTNESS OF BREATH. PER HER 'S REPORT, SHE HAD BEEN FEELING POORLY FOR SEVERAL DAYS, WITH PROGRESSIVE WEAKNESS AND SHORTNESS OF BREATH WHICH LET TO THE PT BEING ADMITTED THROUGH THE EMERGENCY DEPARTMENT LAST NIGHT. Discharge Summary Procedures: PARACENTESIS THORACENTESIS Consultations DR. CANO Discharge Physical Examination Allergies: Coded Allergies: Penicillins (Verified Adverse Reaction, Mild, N/V, 04/05/19) Vitals & I&Os Vital Signs Date Time Temp Pulse Resp B/P (MAP) Pulse Ox O2 Delivery O2 Flow Rate FiO2 06/18/19 04:30 36.9 90 20 137/64 (88) 96 Room Air General Appearance: Alert, Oriented X3, Cooperative, No Acute Distress HEENT: Atraumatic, PERRLA, Mucous Memb Moist/[place] Respiratory: Clear to Auscultation, Normal Air Movement Cardiovascular: Regular Rate, Other (ii/vi rancho) Abdominal: Normal Bowel Sounds, Soft, No Tenderness, Other (+ small fluid wave) Extremities: No Clubbing, No Cyanosis, Other ([place] BILATERAL LOWER EXTREMITIES) Skin: No Rashes, No Breakdown Neuro: Normal Speech, Cranial Nerves 3-12 NL Psych/Mental Status: Mental Status NL, Mood NL Hospital Course Was the Problem List Reviewed?: Yes URINARY TRACT INFECTION - gram negative sidney PLEURAL EFFUSION ASCITES CHRONIC CIRRHOSIS - END STAGE LIVER FAILURE ANEMIA POST-SURGICAL HYPOTHYROIDISM URINARY TRACT INFECTION - GRAM NEGATIVE SIDNEY - ROCEPHIN INJECTION IV X 3 DOSES, WILL TRANSITION TO CEFDINIR 300MG BID X 5 DAYS - WAIT ON CULTURE REPORT FOR FINAL ORGANISM IDENTIFICATION PLEURAL EFFUSION AND ASCITES - DR. CANO CONSULTED AND HE PERFORMED PARACENTESIS AND THORACENTESIS - FLUID SENT FOR PATHOLOGY - REPEAT CHEST XRAY TODAY AND IF REMAINS STABLE, WILL DISCHARGE PT TO HOME CHRONIC CIRRHOSIS - END STAGE LIVER FAILURE - RESTART AZATHIOPRINE ANEMIA - 2 UNIT BLOOD TRANSFUSION MONDAY - HGB IMPROVED - REPEAT CBC ON MONDAY AND MONDAY OF NEXT WEEK - PRN TRANSFUSIONS FOR HGB LESS THAN OR EQUAL TO 7 OR IF SYMPTOMATIC AT HGB OF 8 POST-SURGICAL HYPOTHYROIDISM - RESTARTED HOME MEDICATION REGIMEN DISCHARGE TO HOME TODAY - FOLLOW UP IN MY CLINIC IN ONE WEEK - REPEAT LABS MONDAY OF THIS WEEK, MONDAY OF NEXT WEEK. Pending Labs Laboratory Tests 06/18/19 06:55: Hemoglobin 10.2, Hematocrit 31 Discharge Condition at discharge IMPROVED Instructions to patient/family Please see electronic discharge instructions given to patient. Discharge Medications Reviewed and agree with Discharge Medication list on patient's Discharge Instruction sheet Clinical Quality Measures DVT/VTE Risk/Contraindication: Risk Factor Score Per Nursin RFS Level Per Nursing on Admit: 3=High ASHUTOSH HUTCHINS MD Jun 18, 2019 08:50 POS
[2019-06-18] MEDS ORDERED: SPIRONOLACTONE 100 MG PO SCH (09:00)
[2019-06-18] MEDS ORDERED: ERGOCALCIFEROL 400 UNIT PO SCH (09:00)
[2019-06-18] MEDS ORDERED: NON-FORMULARY MEDICATION 1 EA EA (Levothyroxine Sodium 137 MCG) PO SCH (09:00)
[2019-06-18] MEDS ORDERED: FUROSEMIDE 20 MG (LASIX) TAB PO SCH (09:00)
[2019-06-18] MEDS ORDERED: NON-FORMULARY MEDICATION 1 EA EA (Cyanocobalamin (Vitamin B-12) (Vitamin B12) 2,500 MCG) PO SCH (09:00)
[2019-06-18] MEDS ORDERED: SPIRONOLACTONE 100 MG (ALDACTONE) TABLET PO SCH (09:00)
--- NOTE | 2019-06-18 09:48 | Progress Note - Surgery ---
[facility] 06/18/19 0948: Subjective Date Seen by a Provider: Jun 18, 2019 Time Seen by a Provider: 07:20 Subjective/Events-last exam Patient is alert and oriented and in no acute distress. No family at bedside Has no pain complaints Paracentesis and thoracocentesis have helped the pt tremendously. She states she is breathing alot better. She didnt realize how much the fluid in the chest was affecting her. thoracentesis drained 1400mL and paracentesis drained 4200mL Abdomen is back to normal size according to the patient Minor tenderness at the insertion point for thoracocentesis Had a bowel movement yesterday and is urinating without issue Pt denies N/V, F/C, SOB and Chest pain Objective Exam Vital Signs Date Time Temp Pulse Resp B/P (MAP) Pulse Ox O2 Delivery O2 Flow Rate FiO2 06/18/19 08:00 37.5 98 20 126/73 (90) 99 Room Air 06/18/19 04:30 36.9 90 20 137/64 (88) 96 Room Air 06/17/19 23:35 37.3 93 20 128/60 (82) 98 Room Air 06/17/19 22:05 37.2 93 20 156/68 100 Room Air 06/17/19 21:40 Room Air 06/17/19 20:00 36.9 89 20 134/57 (82) 99 Room Air 06/17/19 19:15 36.5 81 22 121/56 99 Room Air 06/17/19 18:58 36.6 80 20 126/56 100 Room Air 06/17/19 18:45 36.6 80 20 126/56 100 Room Air 06/17/19 18:22 96 Room Air 06/17/19 16:11 97 Room Air 06/17/19 16:00 36.8 88 20 113/55 (74) 100 Room Air 06/17/19 15:56 36.6 86 20 118/55 100 Room Air 06/17/19 15:40 36.8 88 20 113/55 100 Room Air 06/17/19 13:41 36.8 90 99 06/17/19 12:30 36.8 90 20 127/57 (80) 99 Room Air 06/17/19 09:45 96 Room Air I & O 06/18/19 07:00 Intake Total 1700 ml Output Total 2600 ml Balance -900 ml Capillary Refill : Less Than 3 Seconds General Appearance: No Apparent Distress, WD/WN HEENT: PERRL/EOMI, Pharynx Normal Neck: Full Range of Motion, Non Tender, Supple Respiratory: Chest Non Tender, No Accessory Muscle Use, No Respiratory Distress, Decreased Breath Sounds (IN BASES BILATERALLY) Cardiovascular: Regular Rate, Rhythm, No Murmur, Normal Peripheral Pulses Peripheral Pulses: 1+ Dorsalis Pedis (R), 1+ Left Dors-Pedis (L); 2+ Radial Pulses (R), 2+ Radial Pulses (L) Gastrointestinal: non tender, distended (Slighly distended but significantly improved and patient states it is back to normal ), other (Reducible umbilical hernia, fluid wave) Extremity: Normal Capillary Refill, Normal Inspection, Normal Range of Motion, Non Tender, No Calf Tenderness, Pedal Edema Neurologic/Psychiatric: Alert, Oriented x3, No Motor/Sensory Deficits, Normal M ood/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, 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 Norm as Tested Skin: Normal Color, Warm/Dry Lymphatic: No Adenopathy Results Lab Laboratory Tests 06/17/19 13:30: Body Fluid Source THORACENTESIS, Body Fluid Color YELLOW, Body Fluid Appearance CLEAR, Body Fluid pH 7.0, Body Fluid WBC 17, Body Fluid RBC 675, Body Fluid Polynuclear WBCs 14, Body Fluid Mononuclear WBCs , Body Fluid Lymphocytes 78, Body Fluid Other Cells 8, Body Fluid Glucose 102, Body Fluid Total Protein 1.0, Body Fluid Lactate Dehydrogenase 61 06/18/19 06:55: Hemoglobin 10.2#L, Hematocrit 31L Microbiology 06/16/19 Urine Culture - Preliminary, Resulted Mixed Bacterial Khloe Gram Negative Ramón Assessment/Plan Assessment/Plan Assessment/Plan Left pleural effusion, recurrent symptomatic ascites, cirrhosis, autoimmune hepatitis, umbilical hernia, uti - patient is doing better since drainage of chest and abdomen - start diet as tolerated - Continue to monitor, no surgical care needed at this point - have pt up and moving Clinical Quality Measures DVT/VTE Risk/Contraindication: Risk Factor Score Per Nursin RFS Level Per Nursing on Admit: 3=High YAKOV ZURITA DO 06/20/19 8433: Subjective Subjective/Events-last exam breathing better. abdomen feels almost back to normal. denies n/v fever sweats chills shortness of breath or chest pain. Objective Exam General Appearance: No Apparent Distress HEENT: PERRL/EOMI Respiratory: Chest Non Tender, No Accessory Muscle Use, No Respiratory Distress Cardiovascular: Regular Rate, Rhythm, No Murmur, Normal Peripheral Pulses Gastrointestinal: non tender, distended (minimal), other (Reducible umbilical hernia) Extremity: No Calf Tenderness Neurologic/Psychiatric: Alert, Oriented x3 Skin: Normal Color, Warm/Dry Lymphatic: No Adenopathy Assessment/Plan Assessment/Plan Assessment/Plan Left pleural effusion, recurrent symptomatic ascites, cirrhosis, autoimmune hepatitis, umbilical hernia, uti s/p left throacentesis and paracentesis doing well no issues from surgical standpoint at this time. Supervisory-Addendum Brief Verification & Attestation Participated in pt care: history, MDM, physical Personally performed: exam, history, MDM, supervision of care Care discussed with: Medical Student Procedures: n/a Results interpretation: Verified all documentation Verification and Attestation of Medical Student E/M Service A medical student performed and documented this service in my presence. I reviewed and verified all information documented by the medical student and made modifications to such information, when appropriate. I personally performed the physical exam and medical decision making. Yakov Zurita, Jun 18, 2019,16:59 [facility] Jun 18, 2019 09:48 YAKOV CAMPBELL DO Jun 20, 2019 16:59 POS
--- NOTE | 2019-06-18 10:08 | NUR ---
CCALLED DR HUTCHINS AND LEFT MESSAGE ABOUT CXRAY
--- NOTE | 2019-06-18 10:08 | Diagnostic Imaging Report ---
INDICATION: Pleural effusion. COMPARISON: 06/17/2019. FINDINGS: Left pleural effusion and subjacent infiltrate and atelectasis are unchanged. A small right pleural effusion has become apparent. No pneumothorax. IMPRESSION: Left basilar pleural-parenchymal opacity unchanged; however, new small right pleural effusion. Dictated by: Dictated on workstation # [id number]
[2019-06-18] MEDS: NS IV 1000 ML 1,000 ML IV SCH (11:53)
--- NOTE | 2019-06-18 12:32 | NUR ---
RD ASSESSMENT PMHx: liver disease; hiatal hernia; cirrhosis; thoracentesis 06/17 PT INTERACTION: Pt was awake and pleasant during nutrition assessment. Pt states current appetite is good, and that was "so-so" prior to admission. Note pt avg PO intake between 50-75% x2d, per chart review. Pt states following a low-sodium diet at home, "I try to get below 2,000 mg a day." Pt states no current issues with chewing/swallowing food. Pt states no recent issues with n/v/c/d at this time. Note last BM was 06/16 and pt currently on bowel regimen of miralax PRN, per chart review. Pt states no recent wt changes, that her weight fluctuates with fluid buildup. Note unable to determine recent wt hx, per chart review. ABNORMAL NUTRITION-RELATED LAB VALUES: K 3.5 (L); Ca 7.5 (L); Pro 5.2 (L); alb 2.1 (L); BUN 20 (H); bili 1.8 (H) Est. kcal needs: 8132-8847 kcal | 20-25 kcal/kg Est. Pro needs: 97-113 g Pro | 1.2-1.4 g Pro/kg PES STATEMENT: Inadequate oral intake (NI-2.1) related to loss of appetite as evidenced by pt interview INTERVENTION: Continue with current diet order of 2000 mg Sodium diet. Pt may benefit from nutrition supplementation if PO intake declines. Will continue to follow and reassess as pt needs and status change. MONITOR/EVALUATE: PO Intake; Plan of Care; Hydration Status; Weight Status; Lab Values Chanelle Reyes, MS, RD, LD
[2019-06-18 13:30] VITALS: BP 126/73
--- NOTE | 2019-06-18 13:34 | NUR ---
provided prayer and Communion.
== END 2019-06-18 13:30 | disposition home or self-care (01) | DRG 433 ==
LOC: EDUNIT# 11:32 → ER 11:34 → 4TH 14:40 → UNDOADMOB 14:40 → 4TH 14:40 → OBSVTOIN 06-17 16:27 → INTOOBSV 06-17 16:27 → UNDODISIN 06-18 13:30
PROVIDERS: ADMIT Internal Medicine; ATTEND Family Medicine
PROC: 0W9G3ZZ Drainage of Peritoneal Cavity, Percutaneous Approach (ICD-10-PCS; principal; 2019-06-17)
PROC: 0W9B3ZZ Drainage of Left Pleural Cavity, Percutaneous Approach (ICD-10-PCS; 2019-06-17)
DX: K74.69 Other cirrhosis of liver (principal); R18.8 Other ascites; K75.4 Autoimmune hepatitis; J90 Pleural effusion, not elsewhere classified; S22.32XA Fracture of one rib, left side, initial encounter for closed fracture; N30.01 Acute cystitis with hematuria; D64.9 Anemia, unspecified; E89.0 Postprocedural hypothyroidism; K42.9 Umbilical hernia without obstruction or gangrene; W01.0XXA Fall on same level from slipping, tripping and stumbling without subsequent striking against object, initial encounter
CPT/HCPCS: 36415; 71045; 71046; 71260; 74177; 76942; 80053; 81000; 82945; 83615; 83986; 84157; 85007; 85014; 85018; 85025; 85027; 85610; 85730; 86850; 86900; 86901; 86920; 87070; 87077; 87081; 87088; 87186; 87205; 88112; 88305; 89051; 94640; 94664; 94760

== ENCOUNTER → 2019-06-20 | Outpatient (CLI) | payer BC ==
[~2019-06-20] MED LIST changes: +ACET-2267 PO; +ACET-77 PO; +CYAN250010 PO; +ERGO400T6 PO; +PANT40TA2 PO; +PANT40TA3 PO
[2019-06-20 14:13] LABS: BASOPHILS % (AUTO) 1 % (0-10); EOSINOPHILS # (AUTO) 0.2 10^3/uL (0.0-0.3); EOSINOPHILS % (AUTO) 4 % (0-10); HEMATOCRIT 33 % (35-52); HEMOGLOBIN 10.5 G/DL (11.5-16.0); LYMPHOCYTES # (AUTO) 0.5 X 10^3 (1.0-4.0); LYMPHOCYTES % (AUTO) 9 % (12-44); MEAN CORPUSCULAR HEMOGLOBIN 31 PG (25-34); MEAN CORPUSCULAR HGB CONC 32 G/DL (32-36); MEAN CORPUSCULAR VOLUME 98 FL (80-99); MEAN PLATELET VOLUME 11.4 FL (7.4-10.4); MONOCYTES # (AUTO) 0.6 X 10^3 (0.0-1.0); MONOCYTES % (AUTO) 10 % (0-12); NEUTROPHILS # (AUTO) 4.2 X 10^3 (1.8-7.8); NEUTROPHILS % (AUTO) 76 % (42-75); PLATELET COUNT 78 10^3/uL (130-400); RED CELL DISTRIBUTION WIDTH 18.2 % (10.0-14.5); WHITE BLOOD COUNT 5.5 10^3/uL (4.3-11.0)
== END ==
LOC: LAB 14:05
PROVIDERS: ATTEND Family Medicine
DX: N30.01 Acute cystitis with hematuria (principal); K72.10 Chronic hepatic failure without coma; R18.8 Other ascites
CPT/HCPCS: 36415; 85025

== ENCOUNTER → 2019-06-25 | Outpatient (CLI) | payer BC ==
[2019-06-25 08:45] LABS: BASOPHILS # (AUTO) 0.1 10^3/uL (0.0-0.1); BASOPHILS % (AUTO) 1 % (0-10); EOSINOPHILS # (AUTO) 0.4 10^3/uL (0.0-0.3); EOSINOPHILS % (AUTO) 8 % (0-10); HEMATOCRIT 30 % (35-52); HEMOGLOBIN 9.5 G/DL (11.5-16.0); LYMPHOCYTES # (AUTO) 0.6 X 10^3 (1.0-4.0); LYMPHOCYTES % (AUTO) 13 % (12-44); MEAN CORPUSCULAR HEMOGLOBIN 31 PG (25-34); MEAN CORPUSCULAR HGB CONC 32 G/DL (32-36); MEAN CORPUSCULAR VOLUME 95 FL (80-99); MEAN PLATELET VOLUME 10.2 FL (7.4-10.4); MONOCYTES # (AUTO) 0.3 X 10^3 (0.0-1.0); MONOCYTES % (AUTO) 7 % (0-12); NEUTROPHILS % (AUTO) 70 % (42-75); PLATELET COUNT 136 10^3/uL (130-400); RED CELL DISTRIBUTION WIDTH 17.6 % (10.0-14.5); WHITE BLOOD COUNT 4.3 10^3/uL (4.3-11.0)
[2019-06-25 09:01] LABS: ALBUMIN 2.4 GM/DL (3.2-4.5); BILIRUBIN,TOTAL 2.7 MG/DL (0.1-1.0); CALCIUM 8.3 MG/DL (8.5-10.1); CREATININE SERUM 1.13 MG/DL (0.60-1.30); POTASSIUM 4.5 MMOL/L (3.6-5.0); TOTAL PROTEIN 5.9 GM/DL (6.4-8.2)
== END ==
LOC: LAB 08:30
PROVIDERS: ATTEND Family Medicine
DX: K72.10 Chronic hepatic failure without coma (principal); N30.01 Acute cystitis with hematuria; R18.8 Other ascites
CPT/HCPCS: 36415; 80053; 85025

== ENCOUNTER → 2019-07-16 | Outpatient (CLI) | payer BC ==
[2019-07-16 16:01] LABS: BASOPHILS % (AUTO) 1 % (0-10); EOSINOPHILS # (AUTO) 0.1 10^3/uL (0.0-0.3); EOSINOPHILS % (AUTO) 3 % (0-10); HEMATOCRIT 26 % (35-52); HEMOGLOBIN 8.4 G/DL (11.5-16.0); LYMPHOCYTES # (AUTO) 0.5 X 10^3 (1.0-4.0); LYMPHOCYTES % (AUTO) 13 % (12-44); MEAN CORPUSCULAR HEMOGLOBIN 32 PG (25-34); MEAN CORPUSCULAR HGB CONC 33 G/DL (32-36); MEAN CORPUSCULAR VOLUME 96 FL (80-99); MEAN PLATELET VOLUME 9.5 FL (7.4-10.4); MONOCYTES # (AUTO) 0.3 X 10^3 (0.0-1.0); MONOCYTES % (AUTO) 7 % (0-12); NEUTROPHILS # (AUTO) 2.7 X 10^3 (1.8-7.8); NEUTROPHILS % (AUTO) 76 % (42-75); PLATELET COUNT 150 10^3/uL (130-400); RED CELL DISTRIBUTION WIDTH 20.5 % (10.0-14.5); WHITE BLOOD COUNT 3.6 10^3/uL (4.3-11.0)
== END ==
LOC: LAB 15:33
PROVIDERS: ATTEND Family Medicine
DX: D64.9 Anemia, unspecified (principal)
CPT/HCPCS: 36415; 85025

== ENCOUNTER → 2019-08-01 | Outpatient (CLI) | payer MEDICARE, OTHER ==
[2019-08-01 17:52] LABS: BASOPHILS % (AUTO) 1 % (0-10); EOSINOPHILS # (AUTO) 0.1 10^3/uL (0.0-0.3); EOSINOPHILS % (AUTO) 4 % (0-10); HEMATOCRIT 23 % (35-52); HEMOGLOBIN 7.5 G/DL (11.5-16.0); LYMPHOCYTES # (AUTO) 0.4 X 10^3 (1.0-4.0); LYMPHOCYTES % (AUTO) 14 % (12-44); MEAN CORPUSCULAR HEMOGLOBIN 32 PG (25-34); MEAN CORPUSCULAR HGB CONC 33 G/DL (32-36); MEAN CORPUSCULAR VOLUME 98 FL (80-99); MEAN PLATELET VOLUME 9.7 FL (7.4-10.4); MONOCYTES # (AUTO) 0.3 X 10^3 (0.0-1.0); MONOCYTES % (AUTO) 9 % (0-12); NEUTROPHILS # (AUTO) 2.1 X 10^3 (1.8-7.8); NEUTROPHILS % (AUTO) 72 % (42-75); PLATELET COUNT 120 10^3/uL (130-400); RED CELL DISTRIBUTION WIDTH 22.8 % (10.0-14.5)
== END ==
LOC: LAB 17:20
PROVIDERS: ATTEND Nurse Practitioner Family
DX: D64.9 Anemia, unspecified (principal)
CPT/HCPCS: 36415; 85025

== ENCOUNTER 2019-08-04 19:31 | Emergency (ER) | payer MEDICARE, OTHER ==
[~2019-08-04] VITALS: Ht 167.7 cm; Wt 75.3 kg
--- NOTE | 2019-08-04 20:11 | ED GI ---
General Chief Complaint: Abdominal/GI Problems Stated Complaint: N/V Nursing Triage Note: PT AMBULATE TO TRIAGE WITH C/O NAUSEA AND LOOSE STOOLS STARTING THIS AFTERNOON. Sepsis Screen: No Definite Risk Source of Information: Patient Exam Limitations: No Limitations History of Present Illness Date Seen by Provider: Aug 04, 2019 Time Seen by Provider: 20:08 Initial Comments 63-year-old female presents to ER with nausea since this afternoon. She's had loose stools as well but attributed to this potentially to the lactulose that she's been taking 3 times a day. She is on the liver transplant list at the [facility]. She has a diagnosis of cirrhosis from autoimmune hepatitis. Managed on as a preemie, Lasix, spironolactone, had a small pleural effusion couple of months ago and had some ascites drained a couple of months ago as well. She denies fevers chills or pain. had some acid reflux, she suspects they may have the same illness after eating out for breakfast this morning. No fevers. Timing/Duration: 4-6 Hours Severity/Quality: Moderate Location: Other Radiation: No Radiation Associated Symptoms: Nausea/Vomiting Allergies and Home Medications Allergies Coded Allergies: Penicillins (Verified Adverse Reaction, Mild, N/V, 04/05/19) Home Medications Acetaminophen 500 Mg Tablet, 1,000 MG PO Q8H PRN for PAIN-MILD (1-4), (Reported) Azathioprine 50 Mg Tablet, 100 MG PO 2200, (Reported) TAKE 2 (50MG) TABS TO EQUAL 100MG Cefdinir 300 Mg Capsule, 300 MG PO BID Prescribed by: ASHUTOSH MCNEIL on 06/18/19 0842 Cyanocobalamin (Vitamin B-12) 2,500 Mcg Tablet, 2,500 MCG PO DAILY, (Reported) Ergocalciferol (Vitamin D2) 400 Unit Tablet, 400 UNIT PO DAILY, (Reported) Furosemide 20 Mg Tablet, 40 MG PO DAILY, (Reported) TAKES 2 TABS (20MG) TO EQUAL 40MG Levothyroxine Sodium 137 Mcg Tablet, 137 MCG PO DAILY, (Reported) Pantoprazole Sodium 40 Mg Tablet.dr, 40 MG PO DAILY, (Reported) Spironolactone 50 Mg Tablet, 100 MG PO DAILY, (Reported) TAKES 2 TABS (50MG) TO EQUAL 100MG DAILY Patient Home Medication List Home Medication List Reviewed: Yes Review of Systems Review of Systems Constitutional: see HPI; No chills, No fever EENTM: No Symptoms Reported Respiratory: No Symptoms Reported; Denies Cough, Denies Orthopnea, Denies Shortness of Air Cardiovascular: See HPI; Denies Chest Pain, Denies Palpitations Gastrointestinal: See HPI; Denies Abdominal Pain, Denies Diarrhea; Nausea; Denies Vomiting Genitourinary: No Symptoms Reported Musculoskeletal: no symptoms reported Skin: no symptoms reported Psychiatric/Neurological: No Symptoms Reported Endocrine: No Symptoms Reported Past Ovufgpl-Piqesr-Nqumuc Hx Patient Social History Alcohol Use: Denies Use Recreational Drug Use: No Smoking Status: Never a Smoker 2nd Hand Smoke Exposure: No Recent Foreign Travel: No Contact w/Someone Who Travel: No Recent Infectious Disease Expo: No Recent Hopitalizations: No Physical Abuse: No Sexual Abuse: No Mistreated: No Fear: No Immunizations Up To Date Tetanus Booster (TDap): Unknown Date of Pneumonia Vaccine: Sep 20, 2012 Date of Influenza Vaccine: Apr 30, 2019 Seasonal Allergies Seasonal Allergies: No Past Medical History Surgeries: Yes (LIVER BX ) Gallbladder Respiratory: No Currently Using CPAP: No Cardiac: No Neurological: No 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 Sexually Transmitted Disease: No Genitourinary: No Gastrointestinal: Yes (ESOPAGEAL BLEEDING) Liver Disease/Jaundice, Hiatal Hernia, Cirrhosis, Gall Bladder Disease Musculoskeletal: No Endocrine: Yes (GOITERS) HEENT: No Hearing Impairment: Denies Cancer: No Psychosocial: No Integumentary: No Blood Disorders: Yes (ANEMIA) Adverse Reaction/Blood Tranf: No Family Medical History Colon cancer G8 SISTER MS 19 FATHER G8 SISTER Cancer Physical Exam Vital Signs Vital Signs - First Documented 08/04/19 19:43 Temp 36.7 Pulse 93 Resp 18 B/P (MAP) 147/68 (94) O2 Delivery Room Air Capillary Refill : Less Than 3 Seconds Height/Weight/BMI Height: 5'6.00" Weight: 187lbs. 4.0oz. 84.400570ye; 26.00 BMI Method:Stated General Appearance: WD/WN, no apparent distress HEENT: PERRL/EOMI, normal ENT inspection Neck: non-tender, full range of motion Respiratory: no respiratory distress, no accessory muscle use Gastrointestinal: normal bowel sounds, non tender, soft Extremities: normal range of motion, non-tender Neurologic/Psychiatric: alert, normal mood/affect, oriented x 3 Skin: normal color, warm/dry Progress/Results/Core Measures Results/Orders Lab Results Laboratory Tests Test 08/04/19 20:13 08/04/19 20:15 Range/Units White Blood Count 4.4 4.3-11.0 10^3/uL Red Blood Count 2.92 L 4.35-5.85 10^6/uL Hemoglobin 9.3 L 11.5-16.0 G/DL Hematocrit 28 L 35-52 % Mean Corpuscular Volume 95 80-99 FL Mean Corpuscular Hemoglobin 32 25-34 PG Mean Corpuscular Hemoglobin Concent 34 32-36 G/DL Red Cell Distribution Width 22.0 H 10.0-14.5 % Platelet Count 143 130-400 10^3/uL Mean Platelet Volume 9.1 7.4-10.4 FL Neutrophils (%) (Auto) 83 H 42-75 % Lymphocytes (%) (Auto) 7 L 12-44 % Monocytes (%) (Auto) 6 0-12 % Eosinophils (%) (Auto) 4 0-10 % Basophils (%) (Auto) 0 0-10 % Neutrophils # (Auto) 3.6 1.8-7.8 X 10^3 Lymphocytes # (Auto) 0.3 L 1.0-4.0 X 10^3 Monocytes # (Auto) 0.3 0.0-1.0 X 10^3 Eosinophils # (Auto) 0.2 0.0-0.3 10^3/uL Basophils # (Auto) 0.0 0.0-0.1 10^3/uL Neutrophils % (Manual) 81 % Lymphocytes % (Manual) 8 % Monocytes % (Manual) 7 % Eosinophils % (Manual) 3 % Band Neutrophils 1 % Hypochromasia MODERATE Anisocytosis MODERATE Prothrombin Time 16.8 H 12.2-14.7 SEC INR Comment 1.3 0.8-1.4 Sodium Level 137 135-145 MMOL/L Potassium Level 3.4 L 3.6-5.0 MMOL/L Chloride Level 105 98-107 MMOL/L Carbon Dioxide Level 22 21-32 MMOL/L Anion Gap 10 5-14 MMOL/L Blood Urea Nitrogen 19 H 7-18 MG/DL Creatinine 0.94 0.60-1.30 MG/DL Estimat Glomerular Filtration Rate 60 BUN/Creatinine Ratio 20 Glucose Level 109 H 70-105 MG/DL Calcium Level 8.1 L 8.5-10.1 MG/DL Corrected Calcium 9.2 8.5-10.1 MG/DL Total Bilirubin 4.0 H 0.1-1.0 MG/DL Aspartate Amino Transf (AST/SGOT) 34 5-34 U/L Alanine Aminotransferase (ALT/SGPT) 15 0-55 U/L Alkaline Phosphatase 180 H 40-136 U/L Total Protein 6.2 L 6.4-8.2 GM/DL Albumin 2.6 L 3.2-4.5 GM/DL Lipase 34 8-78 U/L Urine Color YELLOW Urine Clarity CLEAR Urine pH 5.5 5-9 Urine Specific [place] >=1.030 1.016-1.022 Urine Protein TRACE NEGATIVE Urine Glucose (UA) TRACE H NEGATIVE Urine Ketones NEGATIVE NEGATIVE Urine Nitrite POSITIVE NEGATIVE Urine Bilirubin 2+ H NEGATIVE Urine Urobilinogen 4.0 < = 1.0 MG/DL Urine Leukocyte Esterase NEGATIVE NEGATIVE Urine RBC (Auto) 2+ H NEGATIVE Urine RBC 2-5 H /HPF Urine WBC 0-2 /HPF Urine Crystals PRESENT H /LPF Urine Amorphous Sediment FEW PENNY URATES H /LPF Urine Bacteria TRACE /HPF Urine Casts NONE /LPF Urine Mucus NEGATIVE /LPF Urine Culture Indicated YES My Orders Orders - CIRA ZEPEDA APRN Cbc With Automated Diff (08/04/19 19:54) Comprehensive Metabolic Panel (08/04/19 19:54) Lipase (08/04/19 19:54) Ua Culture If Indicated (08/04/19 19:54) Protime With Inr (08/04/19 20:07) Chest Pa/Lat (2 View) (08/04/19 20:07) Ondansetron Oral Dissolve Tab (Zofran (08/04/19 20:15) Manual Differential (08/04/19 20:13) Urine Culture (08/04/19 20:15) Medications Given in ED Current Medications Medications Dose Ordered Sig/Soy Route Start Time Stop Time Status Last Admin Dose Admin Ondansetron HCl 8 mg ONCE ONCE PO 08/04/19 20:15 08/04/19 20:16 DC 08/04/19 20:44 8 MG Vital Signs/I&O 08/04/19 19:43 Temp 36.7 Pulse 93 Resp 18 B/P (MAP) 147/68 (94) O2 Delivery Room Air Blood Pressure Mean: 94 Diagnostic Imaging Diagonstic Imaging: Xray Plain Films/CT/US/NM/MRI: chest Comments NAME: AMBROSIO ARREDONDO [facility] REC#: [id number] PT STATUS: REG ER : 1955 PHYSICIAN: CIRA ZEPEDA APRN ADMIT DATE: 08/04/19/ER Draft Date of Exam:08/04/19 CHEST PA/LAT (2 VIEW) INDICATION: Nausea. TECHNIQUE: Two view chest, 8:32 p.m. CORRELATION STUDY: 06/18/2019. FINDINGS: Significant opacification inferior left hemithorax again demonstrated likely owing to large pleural effusion. Associated consolidation left lung base. Right lung appears generally clear. Heart size is largely obscured but appears generally stable to perhaps slightly increased in size. Vasculature is mildly prominent. Multiple surgical clips within the neck and upper chest. IMPRESSION: Moderately large left pleural effusion again demonstrated generally stable to slightly increased in size with associated consolidation left lung base. Dictated on workstation # [id number] Dict: [id number] Trans: 08/04/192112 [facility] [id number] Interpreted by: YOLANDA LOPEZ DO Electronically signed by: Departure Impression Primary Impression: Nausea alone Additional Impressions: Cirrhosis of liver Qualified Codes: K74.60 - Unspecified cirrhosis of liver; R18.8 - Other ascites Pleural effusion Disposition: HOME, SELF-CARE Condition: Improved Departure-Patient Inst. Decision time for Depature: 21:15 Referrals: ASHUTOSH MCNEIL MD (PCP/Family) Primary Care Physician Patient Instructions: Pleural Effusion, Nausea and Vomiting, Adult (DC) Add. Discharge Instructions: 1. Follow-up with Dr. Mcneil. Call tomorrow. this pleural effusion (the fluid around your left lung) looks a bit larger today than it did on your last chest x-ray. She may want to arrange to have this drained in the outpatient setting if it causes you any symptoms such as shortness of breath All discharge instructions reviewed with patient and/or family. Voiced understanding. Copy Copies To 1: ASHUTOSH MCNEIL MD, PETER J APRN Aug 04, 2019 20:11
[2019-08-04] MEDS ORDERED: ONDANSETRON 4 MG (ZOFRAN) ORAL DISSOLVE TAB PO ONE (20:15)
[2019-08-04 20:20] LABS: BASOPHILS % (AUTO) 0 % (0-10); EOSINOPHILS # (AUTO) 0.2 10^3/uL (0.0-0.3); EOSINOPHILS % (AUTO) 4 % (0-10); HEMATOCRIT 28 % (35-52); HEMOGLOBIN 9.3 G/DL (11.5-16.0); LYMPHOCYTES # (AUTO) 0.3 X 10^3 (1.0-4.0); LYMPHOCYTES % (AUTO) 7 % (12-44); MEAN CORPUSCULAR HEMOGLOBIN 32 PG (25-34); MEAN CORPUSCULAR HGB CONC 34 G/DL (32-36); MEAN CORPUSCULAR VOLUME 95 FL (80-99); MEAN PLATELET VOLUME 9.1 FL (7.4-10.4); MONOCYTES # (AUTO) 0.3 X 10^3 (0.0-1.0); MONOCYTES % (AUTO) 6 % (0-12); NEUTROPHILS # (AUTO) 3.6 X 10^3 (1.8-7.8); NEUTROPHILS % (AUTO) 83 % (42-75); PLATELET COUNT 143 10^3/uL (130-400); WHITE BLOOD COUNT 4.4 10^3/uL (4.3-11.0)
[2019-08-04 20:31] LABS: BILIRUBIN,URINE 2+ (NEGATIVE); CLARITY,URINE CLEAR; COLOR,URINE YELLOW; GLUCOSE, URINE (UA) TRACE (NEGATIVE); KETONES,URINE NEGATIVE (NEGATIVE); LEUKOCYTE ESTERASE ,URINE NEGATIVE (NEGATIVE); NITRITE,URINE POSITIVE (NEGATIVE); PH,URINE 5.5 (5-9); PROTEIN,URINE TRACE (NEGATIVE)
[2019-08-04 20:43] LABS: BACTERIA,URINE TRACE /HPF; WBC,URINE 0-2 /HPF
[2019-08-04 20:44] LABS: AMORPHOUS SEDIMENT,UR FEW AMOR URATES /LPF
[2019-08-04 20:44] LABS: ALBUMIN 2.6 GM/DL (3.2-4.5); CALCIUM 8.1 MG/DL (8.5-10.1); CREATININE SERUM 0.94 MG/DL (0.60-1.30); POTASSIUM 3.4 MMOL/L (3.6-5.0); TOTAL PROTEIN 6.2 GM/DL (6.4-8.2)
[2019-08-04 20:45] LABS: INR 1.3 (0.8-1.4); PROTHROMBIN TIME PATIENT 16.8 SEC (12.2-14.7)
[2019-08-04 21:06] LABS: ANISOCYTOSIS MODERATE; BAND NEUTROPHILS 1 %; EOSINOPHILS % (MANUAL) 3 %; HYPOCHROMASIA MODERATE; LYMPHOCYTES % (MANUAL) 8 %; MONOCYTES % (MANUAL) 7 %; NEUTROPHILS % (MANUAL) 81 %
--- NOTE | 2019-08-04 21:14 | Diagnostic Imaging Report ---
INDICATION: Nausea. TECHNIQUE: Two view chest, 8:32 p.m. CORRELATION STUDY: 06/18/2019. FINDINGS: Significant opacification inferior left hemithorax again demonstrated likely owing to large pleural effusion. Associated consolidation left lung base. Right lung appears generally clear. Heart size is largely obscured but appears generally stable to perhaps slightly increased in size. Vasculature is mildly prominent. Multiple surgical clips within the neck and upper chest. IMPRESSION: Moderately large left pleural effusion again demonstrated generally stable to slightly increased in size with associated consolidation left lung base. Dictated by: Dictated on workstation # [id number]
[2019-08-04] MEDS ORDERED: RX-ONDANSETRON 4 MG ODT (ZOFRAN) PPK #4 PO STA (21:30)
[2019-08-04 21:33] VITALS: BP 125/75
== END 2019-08-04 21:33 | disposition home or self-care (01) ==
LOC: EDUNIT# 19:31 → ER 19:32
DX: K74.60 Unspecified cirrhosis of liver (principal); J90 Pleural effusion, not elsewhere classified; D64.9 Anemia, unspecified; Z88.0 Allergy status to penicillin; Z87.19 Personal history of other diseases of the digestive system; Z80.0 Family history of malignant neoplasm of digestive organs
CPT/HCPCS: 36415; 71046; 80053; 81000; 83690; 85007; 85027; 85610; 87088

== ENCOUNTER → 2019-08-07 | Outpatient (CLI) | payer MEDICARE, OTHER ==
[~2019-08-07] VITALS: Ht 167.7 cm; Wt 76.8 kg
[~2019-08-07] MED LIST changes: +LIDOCAINE 1% INJ 20 ML 20 ML VIAL INJ ONE
--- NOTE | 2019-08-07 15:52 | Diagnostic Imaging Report ---
INDICATION: Ascites. Patient was brought to the procedure room and placed on table in the supine position. Ultrasound imaging over the abdomen was performed to evaluate appropriate entry site. Left lower quadrant was then prepped and draped in usual sterile fashion. A small amount of 1% lidocaine was utilized for local anesthesia. An all-purpose thoracentesis catheter was advanced into the left lower quadrant peritoneal space. Yellow serous fluid was removed. A total of 5000 mL of fluid was removed. Catheter was withdrawn, and hemostasis was obtained. Patient tolerated the procedure well and left the department in stable condition. IMPRESSION: Ultrasound-guided paracentesis obtaining 5 L of fluid. Dictated by: Dictated on workstation # [id number]
--- NOTE | 2019-08-07 15:57 | Pre-Op Note & Conscious Sedat ---
Pre-Operative Progress Note H&P Reviewed The H&P was reviewed, patient examined and no changes noted. Date H&P Reviewed: Aug 07, 2019 Time H&P Reviewed: 14:00 Pre-Op Diagnosis: Ascites Conscious Sedation Pre-Proced Time 14:00 ASA Score 2 For ASA 3 and 4: Consider anesthesia and medical clearance. Also, for patients with a history of failed moderate sedation consider anesthesia. Airway Lungs Heart ASA score ASA 1: a normal healthy patient ASA 2: a patient with a mild systemic disease (mid diabetes, controlled hypertension, obesity ASA 3: a patient with a severe systemic disease that limits activity (angina, COPD, prior Myocardial infarction) ASA 4: a patient with an incapacitating disease that is a constant threat to life (CHF, renal failure) ASA 5: a moribund patient not expected to survive 24 hrs. (ruptured aneurysm) ASA 6: a declared brain- patient whose organs are being harvested. For emergent operations, add the letter E after the classification Mallampati Classification Grade 2 Sedation Plan Analgesia, Amnesia, Plan communicated to team members, Discussed options with patient/fam, Discussed risks with patient/fam The patient is an appropriate candidate to undergo the planned procedure, sedation, and anesthesia. The patient immediately re-assessed prior to indication. BALJIT LENNON MD Aug 07, 2019 15:57
== END ==
LOC: RAD 14:15
PROVIDERS: ATTEND Family Medicine
DX: K72.90 Hepatic failure, unspecified without coma (principal); R18.8 Other ascites
CPT/HCPCS: 49083

== ENCOUNTER → 2019-08-08 | Outpatient (CLI) | payer MEDICARE, OTHER ==
[~2019-08-08] VITALS: Ht 167.7 cm; Wt 71.4 kg
[2019-08-08 13:08] VITALS: BP 138/64
[2019-08-08 13:41] VITALS: BP 125/53
--- NOTE | 2019-08-08 13:57 | Diagnostic Imaging Report ---
INDICATION: Pleural effusion. FINDINGS: Patient was brought to the procedure room, placed on the bed in a sitting upright position. Ultrasound imaging over the left posterior thorax was performed to evaluate appropriate entry site. Left posterior thorax was then prepped and draped in the usual sterile fashion. A small amount of 1% lidocaine was utilized for local anesthesia. Thoracentesis catheter was advanced into the posterior pleural space. Total of 1300 mL of fluid was removed. Catheter was then removed and hemostasis was obtained using manual compression. Patient tolerated the procedure well and left the department in stable condition. Post-procedure chest x-ray was obtained. IMPRESSION: Ultrasound-guided left-sided thoracentesis obtaining 1300 mL of fluid. Dictated by: Dictated on workstation # [id number]
--- NOTE | 2019-08-08 14:00 | Diagnostic Imaging Report ---
INDICATION: Status post thoracentesis. TIME OF EXAM: 1:54 p.m. COMPARISON: Correlation is made with prior chest from 08/04/2019. FINDINGS: Significant reduction in left-sided pleural effusion is noted, status post thoracentesis. No pneumothorax is identified. Lungs are clear. IMPRESSION: No evidence of pneumothorax, status post thoracentesis. Dictated by: Dictated on workstation # [id number]
--- NOTE | 2019-08-08 14:01 | Progress Note-Pre Operative ---
Pre-Operative Progress Note H&P Reviewed The H&P was reviewed, patient examined and no changes noted. Date Seen by Provider: Aug 08, 2019 Time Seen by Provider: 12:00 Date H&P Reviewed: Aug 08, 2019 Time H&P Reviewed: 12:00 Pre-Operative Diagnosis: Pleural effusion BALJIT LENNON MD Aug 08, 2019 14:01
== END ==
LOC: RAD 11:48
PROVIDERS: ATTEND Family Medicine
DX: J90 Pleural effusion, not elsewhere classified (principal); K72.90 Hepatic failure, unspecified without coma; R18.8 Other ascites; Z98.890 Other specified postprocedural states
CPT/HCPCS: 32555; 71045

== ENCOUNTER → 2019-08-28 | Outpatient (CLI) | payer MEDICARE, OTHER ==
[~2019-08-28] VITALS: Ht 167.7 cm; Wt 71.4 kg
[~2019-08-28] MED LIST changes: -ACET-77 PO; +ACET-78 PO; +ACETAMINOPHEN 500 MG TAB (TYLENOL) ONE; +ACETAMINOPHEN 500 MG TAB (TYLENOL) PO ONE; +FUROSEMIDE 40 MG/4 ML INJ (LASIX) IV ONE; +FUROSEMIDE 40 MG/4 ML INJ (LASIX) ONE; -LIDOCAINE 1% INJ 20 ML 20 ML VIAL INJ ONE; +NS IV 500 ML 500 ML IV SCH; +NS IV 500 ML 500 ML ONE; +diphenhydrAMINE 50 MG/ML INJ (BENADRYL) IV ONE; +diphenhydrAMINE 50 MG/ML INJ (BENADRYL) ONE
[2019-08-28 13:40] LABS: BASOPHILS % (AUTO) 0 % (0-10); EOSINOPHILS % (AUTO) 0 % (0-10); HEMATOCRIT 24 % (35-52); HEMOGLOBIN 7.8 G/DL (11.5-16.0); LYMPHOCYTES # (AUTO) 0.4 X 10^3 (1.0-4.0); LYMPHOCYTES % (AUTO) 2 % (12-44); MEAN CORPUSCULAR HEMOGLOBIN 33 PG (25-34); MEAN CORPUSCULAR HGB CONC 33 G/DL (32-36); MEAN CORPUSCULAR VOLUME 101 FL (80-99); MEAN PLATELET VOLUME 9.6 FL (7.4-10.4); MONOCYTES # (AUTO) 0.2 X 10^3 (0.0-1.0); MONOCYTES % (AUTO) 1 % (0-12); NEUTROPHILS # (AUTO) 15.5 X 10^3 (1.8-7.8); NEUTROPHILS % (AUTO) 96 % (42-75); PLATELET COUNT 143 10^3/uL (130-400); RED CELL DISTRIBUTION WIDTH 18.7 % (10.0-14.5); WHITE BLOOD COUNT 16.1 10^3/uL (4.3-11.0)
[2019-08-28 14:00] LABS: ALBUMIN 2.3 GM/DL (3.2-4.5); BILIRUBIN,TOTAL 4.2 MG/DL (0.1-1.0); CREATININE SERUM 1.23 MG/DL (0.60-1.30); POTASSIUM 3.9 MMOL/L (3.6-5.0); TOTAL PROTEIN 6.1 GM/DL (6.4-8.2)
[2019-08-28 14:14] LABS: ANISOCYTOSIS SLIGHT; BAND NEUTROPHILS 7 %; BASOPHILS % (MANUAL) 0 %; EOSINOPHILS % (MANUAL) 1 %; LYMPHOCYTES % (MANUAL) 3 %; MONOCYTES % (MANUAL) 1 %; NEUTROPHILS % (MANUAL) 88 %; TOXIC GRANULATION/VACUOLAZATIO 1+
[2019-08-28 14:45] LABS: INR 1.3 (0.8-1.4); PROTHROMBIN TIME PATIENT 16.7 SEC (12.2-14.7)
--- NOTE | 2019-08-28 15:45 | NUR ---
TO AMB SURG FROM RADIOLOGY PER CART. ALERT, REPORT FROM DONNY ESCOBAR. SL IN PLACE RIGHT FOREARM. DENIES PAIN. HERE FOR BLOOD TRANSFUSION POST PARACENTESIS.
--- NOTE | 2019-08-28 16:18 | Diagnostic Imaging Report ---
INDICATION: Ascites. Patient presents for ultrasound-guided paracentesis. TECHNIQUE: The patient was brought to the procedure room and placed on the table in the supine position. Ultrasound imaging over the abdomen was performed to evaluate for an appropriate entry site. The left lower quadrant was then prepped and draped in the usual sterile fashion. A small amount of 1% lidocaine was utilized for local anesthesia. A 7-Iceland[place] paracentesis catheter was advanced into the left lower quadrant. A total of 4.7 L of fluid was removed. The catheter was withdrawn and hemostasis was obtained using manual compression. The patient tolerated the procedure well and left the Department in stable condition. IMPRESSION: Successful ultrasound-guided paracentesis obtaining 4.7 L of fluid. Dictated by: Dictated on workstation # [id number]
[2019-08-28 16:23] VITALS: BP 130/43
[2019-08-28 16:50] VITALS: BP 124/49
--- NOTE | 2019-08-28 18:30 | NUR ---
TO [facility], ROOM 423, PER CART WITH STAFF X2 AND FOR COMPLETION OF BLOOD TRANSFUSION. ASSISTED PT FROM CART TO BED. REPORT TO DONNY FLORES, [facility] AND CARE OF PT TRANSFERRED TO SAME.
[2019-08-28 19:38] VITALS: BP 127/59
[2019-08-28 21:00] VITALS: BP 121/56
[2019-08-28 21:18] VITALS: BP 123/57
[2019-08-28 23:55] VITALS: BP 124/58
[2019-08-29 01:11] LABS: HEMOGLOBIN 9.2 G/DL (11.5-16.0)
[2019-08-29 01:35] VITALS: BP 124/58
--- NOTE | 2019-08-29 01:35 | NUR ---
PT HGB 1 HOUR POST TRANSFUSION RESULT IS 9.2. PT DISCHARGED PER ORDERS. EDUCATION REGARDING POTENTIAL POST TRANSFUSION EFFECTS GIVEN TO PATIENT. IV REMOVED, IV CATH TIP INTACT. PATIENTS BELONGINGS RETURNED TO PT AND HER . PT ACCOMPANIED BY AND STAFF OFF FLOOR VIA WHEELCHAIR.
== END ==
LOC: RAD 13:19
PROVIDERS: ATTEND Family Medicine
DX: R18.8 Other ascites (principal); K74.69 Other cirrhosis of liver; D64.9 Anemia, unspecified
CPT/HCPCS: 36415; 49083; 80053; 82140; 85007; 85027; 85610; 86850; 86900; 86901; 86920

== ENCOUNTER 2019-09-17 16:07 | Emergency (ER) | payer MEDICARE, OTHER ==
[~2019-09-17] VITALS: Ht 168 cm; Wt 72.0 kg
[~2019-09-17 16:07] MED LIST changes: -ACETAMINOPHEN 500 MG TAB (TYLENOL) ONE; -ACETAMINOPHEN 500 MG TAB (TYLENOL) PO ONE; -FUROSEMIDE 40 MG/4 ML INJ (LASIX) IV ONE; -FUROSEMIDE 40 MG/4 ML INJ (LASIX) ONE; -NS IV 500 ML 500 ML IV SCH; -NS IV 500 ML 500 ML ONE; -diphenhydrAMINE 50 MG/ML INJ (BENADRYL) IV ONE; -diphenhydrAMINE 50 MG/ML INJ (BENADRYL) ONE
[2019-09-17 16:59] LABS: BASOPHILS % (AUTO) 0 % (0-10); EOSINOPHILS # (AUTO) 0.1 10^3/uL (0.0-0.3); EOSINOPHILS % (AUTO) 2 % (0-10); HEMATOCRIT 24 % (35-52); HEMOGLOBIN 7.9 G/DL (11.5-16.0); LYMPHOCYTES # (AUTO) 0.5 X 10^3 (1.0-4.0); LYMPHOCYTES % (AUTO) 7 % (12-44); MEAN CORPUSCULAR HEMOGLOBIN 33 PG (25-34); MEAN CORPUSCULAR HGB CONC 33 G/DL (32-36); MEAN CORPUSCULAR VOLUME 100 FL (80-99); MEAN PLATELET VOLUME 9.6 FL (7.4-10.4); MONOCYTES # (AUTO) 0.2 X 10^3 (0.0-1.0); MONOCYTES % (AUTO) 4 % (0-12); NEUTROPHILS # (AUTO) 5.9 X 10^3 (1.8-7.8); NEUTROPHILS % (AUTO) 88 % (42-75); PLATELET COUNT 119 10^3/uL (130-400); RED CELL DISTRIBUTION WIDTH 20.7 % (10.0-14.5); WHITE BLOOD COUNT 6.7 10^3/uL (4.3-11.0)
--- NOTE | 2019-09-17 17:01 | ED Respiratory ---
General Chief Complaint: Respiratory Problems Stated Complaint: SOB Nursing Triage Note: PT STATES SHE IS ON THE LIVER TRANSPLANT LIST AT , SCHEDULED FOR AN APT THERE TOMORROW FOR CHECK UP, CC TODAY OF SOB, BACK PAIN FOR A FEW WEEKS, HAS A LIDOCAINE PATCH FROM DR. MCNEIL. PT THINKS SOME OF THE SOB IS FROM THE BACK PAIN, NURSE FROM WANTED HER CHECKED OUT TO BE SURE SHE DOESN'T HAVE FLUID ON ABD OR PNEUMONIA. PT DOES HAVE A HERNIA. History of Present Illness Date Seen by Provider: Sep 17, 2019 Time Seen by Provider: 16:45 Initial Comments 64-year-old female with history of cirrhosis, wait list for liver transplant at [facility]. She has been noticing some shortness of air and was on the phone with the transplant nurse and told to have a chest x-ray. She called Dr. Mcneil's office on Monday and again today to request a chest x-ray, she did not receive a call back from the office, so presented to ED for CXR. She is leaving for [facility], has appt at [facility] tomorrow. She was seen in the last month and had paracentesis. She is on Lasix 40 mg in the a.m. and spironolactone 50 mg daily. She is having some increased edema in her left lower extremity. She chronically has anemia. Timing/Duration: changing over time Prior Episodes/Possible Cause: occasional episodes Associated Symptoms: No chest pain/soreness, No cough, No fever/chills, No headache, No muscle aches; shortness of breath; No wheezing Allergies and Home Medications Allergies Coded Allergies: Penicillins (Verified Adverse Reaction, Mild, N/V, 04/05/19) Home Medications Acetaminophen 500 Mg Tablet, 1,000 MG PO Q8H PRN for PAIN-MILD (1-4), (Reported) Azathioprine 50 Mg Tablet, 100 MG PO 2200, (Reported) TAKE 2 (50MG) TABS TO EQUAL 100MG Cefdinir 300 Mg Capsule, 300 MG PO BID Prescribed by: ASHUTOSH MCNEIL on 06/18/19 0842 Cyanocobalamin (Vitamin B-12) 2,500 Mcg Tablet, 2,500 MCG PO DAILY, (Reported) Ergocalciferol (Vitamin D2) 400 Unit Tablet, 400 UNIT PO DAILY, (Reported) Furosemide 20 Mg Tablet, 40 MG PO DAILY, (Reported) TAKES 2 TABS (20MG) TO EQUAL 40MG Levothyroxine Sodium 137 Mcg Tablet, 137 MCG PO DAILY, (Reported) Pantoprazole Sodium 40 Mg Tablet.dr, 40 MG PO DAILY, (Reported) Spironolactone 50 Mg Tablet, 100 MG PO DAILY, (Reported) TAKES 2 TABS (50MG) TO EQUAL 100MG DAILY Patient Home Medication List Home Medication List Reviewed: Yes Review of Systems Review of Systems Constitutional: no symptoms reported, see HPI Respiratory: see HPI; No cough; short of breath (trace, she reports normal for baseline. ) All Other Systems Reviewed Negative Unless Noted: Yes Past Xcoemsn-Rqggwz-Yspiit Hx Past Med/Social Hx: Reviewed Nursing Past Med/Soc Hx Patient Social History Alcohol Use: Denies Use Recreational Drug Use: No Smoking Status: Never a Smoker 2nd Hand Smoke Exposure: No Recent Foreign Travel: No Contact w/Someone Who Travel: No Recent Infectious Disease Expo: No Recent Hopitalizations: Yes (05/2019) Physical Abuse: No Sexual Abuse: No Immunizations Up To Date Tetanus Booster (TDap): Unknown Date of Pneumonia Vaccine: Sep 20, 2012 Date of Influenza Vaccine: Apr 30, 2019 Seasonal Allergies Seasonal Allergies: No Past Medical History Surgeries: Yes (LIVER BX ) Gallbladder, Thyroidectomy Respiratory: No Currently Using CPAP: No Cardiac: No Neurological: No Reproductive Disorders: No 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 Sexually Transmitted Disease: No Genitourinary: No Gastrointestinal: Yes (ESOPAGEAL BLEEDING) Liver Disease/Jaundice, Hiatal Hernia, Cirrhosis, Gall Bladder Disease Musculoskeletal: No Endocrine: Yes (GOITERS) HEENT: No Hearing Impairment: Denies Cancer: No Psychosocial: No Integumentary: No Blood Disorders: Yes (ANEMIA) Adverse Reaction/Blood Tranf: No Family Medical History Colon cancer G8 SISTER MS 19 FATHER G8 SISTER Cancer Physical Exam Vital Signs - First Documented 09/17/19 16:28 Temp 36.4 Pulse 95 Resp 20 B/P (MAP) 131/72 (91) Pulse Ox 99 O2 Delivery Room Air Capillary Refill : Less Than 3 Seconds Height: 5'6.00" Weight: 187lbs. 4.0oz. 84.870028bd; 25.00 BMI Method:Stated General Appearance: WD/WN, no apparent distress HEENT: PERRL/EOMI, normal ENT inspection, TMs normal, pharynx normal Neck: non-tender, full range of motion, supple, normal inspection Respiratory: chest non-tender, lungs clear, normal breath sounds, no respiratory distress, no accessory muscle use; No crackles, No rales, No rhonchi, No wheezing Cardiovascular: normal peripheral pulses, regular rate, rhythm, systolic murmur Gastrointestinal: normal bowel sounds, soft, distended; No tenderness; other (Mild ascites, patient reports better than in the past) Neurologic/Psychiatric: no motor/sensory deficits, alert, normal mood/affect, oriented x 3 Skin: warm/dry, jaundice Lymphatic: no adenopathy Progress/Results/Core Measures Suspected Sepsis Recent Fever Within 48 Hours: No Infection Criteria Present: None New/Unexplained Altered Menta: No Sepsis Screen: No Definite Risk SIRS Temperature: Pulse: 95 Respiratory Rate: 20 Laboratory Tests 09/17/19 16:50: White Blood Count 6.7 Blood Pressure 131 /72 Mean: 91 Laboratory Tests 09/17/19 16:50: Creatinine 1.30, Platelet Count 119L, Total Bilirubin 3.0H Results/Orders Lab Results Laboratory Tests Test 09/17/19 16:50 09/17/19 17:40 Range/Units White Blood Count 6.7 4.3-11.0 10^3/uL Red Blood Count 2.38 L 4.35-5.85 10^6/uL Hemoglobin 7.9 L 11.5-16.0 G/DL Hematocrit 24 L 35-52 % Mean Corpuscular Volume 100 H 80-99 FL Mean Corpuscular Hemoglobin 33 25-34 PG Mean Corpuscular Hemoglobin Concent 33 32-36 G/DL Red Cell Distribution Width 20.7 H 10.0-14.5 % Platelet Count 119 L 130-400 10^3/uL Mean Platelet Volume 9.6 7.4-10.4 FL Neutrophils (%) (Auto) 88 H 42-75 % Lymphocytes (%) (Auto) 7 L 12-44 % Monocytes (%) (Auto) 4 0-12 % Eosinophils (%) (Auto) 2 0-10 % Basophils (%) (Auto) 0 0-10 % Neutrophils # (Auto) 5.9 1.8-7.8 X 10^3 Lymphocytes # (Auto) 0.5 L 1.0-4.0 X 10^3 Monocytes # (Auto) 0.2 0.0-1.0 X 10^3 Eosinophils # (Auto) 0.1 0.0-0.3 10^3/uL Basophils # (Auto) 0.0 0.0-0.1 10^3/uL Neutrophils % (Manual) 89 % Lymphocytes % (Manual) 6 % Monocytes % (Manual) 3 % Eosinophils % (Manual) 2 % Polychromasia SLIGHT Anisocytosis MODERATE [place] Cells SLIGHT Sodium Level 133 L 135-145 MMOL/L Potassium Level 3.5 L 3.6-5.0 MMOL/L Chloride Level 100 98-107 MMOL/L Carbon Dioxide Level 26 21-32 MMOL/L Anion Gap 7 5-14 MMOL/L Blood Urea Nitrogen 24 H 7-18 MG/DL Creatinine 1.30 0.60-1.30 MG/DL Estimat Glomerular Filtration Rate 41 BUN/Creatinine Ratio 18 Glucose Level 109 H 70-105 MG/DL Calcium Level 8.3 L 8.5-10.1 MG/DL Corrected Calcium 9.6 8.5-10.1 MG/DL Total Bilirubin 3.0 H 0.1-1.0 MG/DL Aspartate Amino Transf (AST/SGOT) 40 H 5-34 U/L Alanine Aminotransferase (ALT/SGPT) 19 0-55 U/L Alkaline Phosphatase 198 H 40-136 U/L B-Type Natriuretic Peptide 118.7 H <100.0 PG/ML Total Protein 6.1 L 6.4-8.2 GM/DL Albumin 2.4 L 3.2-4.5 GM/DL Amylase Level 22 L 25-125 U/L Lipase 28 8-78 U/L Urine Color YELLOW Urine Clarity CLEAR Urine pH 6.0 5-9 Urine Specific [place] 1.015 L 1.016-1.022 Urine Protein NEGATIVE NEGATIVE Urine Glucose (UA) NEGATIVE NEGATIVE Urine Ketones NEGATIVE NEGATIVE Urine Nitrite NEGATIVE NEGATIVE Urine Bilirubin NEGATIVE NEGATIVE Urine Urobilinogen 2.0 < = 1.0 MG/DL Urine Leukocyte Esterase NEGATIVE NEGATIVE Urine RBC (Auto) 3+ H NEGATIVE Urine RBC 25-50 H /HPF Urine WBC NONE /HPF Urine Squamous Epithelial Cells 10-25 H /HPF Urine Crystals NONE /LPF Urine Bacteria TRACE /HPF Urine Casts NONE /LPF Urine Mucus SMALL H /LPF Urine Culture Indicated NO My Orders Orders - MAGDA TRINH Amylase (09/17/19 16:49) BNP (2/18/20 16:49) Cbc With Automated Diff (09/17/19 16:49) Comprehensive Metabolic Panel (09/17/19 16:49) Lipase (09/17/19 16:49) Ua Culture If Indicated (09/17/19 16:49) Chest Pa/Lat (2 View) (09/17/19 16:49) Manual Differential (09/17/19 16:50) Furosemide Tablet (Lasix Tablet) (09/17/19 18:00) Medications Given in ED Current Medications Medications Dose Ordered Sig/Soy Route Start Time Stop Time Status Last Admin Dose Admin Furosemide 40 mg ONCE ONCE PO 09/17/19 18:00 09/17/19 18:01 DC 09/17/19 18:16 40 MG Vital Signs/I&O 09/17/19 09/17/19 16:28 18:17 Temp 36.4 36.4 Pulse 95 95 Resp 20 20 B/P (MAP) 131/72 (91) 131/72 (91) Pulse Ox 99 99 O2 Delivery Room Air Capillary Refill : Less Than 3 Seconds Blood Pressure Mean: 91 Progress Note : Time: 16:45 Progress Note Patient seen and evaluated, will obtain EKG, labs and chest x-ray. 1715 chest x-ray results reviewed with the patient as well as her hemoglobin is 7.9. When reviewed with previous lab draws over the last 6 months, it has ranged 6-10. 1750 chest x-ray results reviewed with the patient and her spouse. Agreed with plan of increasing her Lasix and taking additional 40 mg tonight help with the fluid. Based on lung Assessment and chest x-ray no signs of pneumonia noted. The patient by to proceed with traveling to [facility] for appointment to tomorrow. Discharge instructions and return precautions reviewed with her. All questions answered. ECG Initial ECG Impression Date: Sep 17, 2019 Initial ECG Impression Time: 16:47 Initial ECG Rate: 93 Initial ECG Rhythm: Normal Sinus Initial ECG Intervals: Normal Initial ECG Intervals NV 156, QRSD 82, QT 348, QTC 433. [place] P 55, QRS 9, T 76. Initial ECG Impression: Normal Initial ECG Comparisson: Unchanged Comment Reviewed with Dr. Sheets, agreed with interpretation. Diagnostic Imaging Diagonstic Imaging: Xray Plain Films/CT/US/NM/MRI: chest Comments NAME: AMBROSIO ARREDONDO [facility] REC#: [id number] PT STATUS: REG ER : 1955 PHYSICIAN: MAGDA TRINH ADMIT DATE: 09/17/19/ER Draft Date of Exam:09/17/19 CHEST PA/LAT (2 VIEW) INDICATION: Shortness of breath, history of liver failure. PA and lateral chest obtained at 5:25 p.m. and is compared to 08/08/2019. FINDINGS: The heart is normal in size. There is a xpvhkbmu-[id number] left pleural effusion with left basilar atelectatic change versus infiltrate. There is no significant right-sided pleural fluid. There is mild central vascular prominence. IMPRESSION: Large left pleural effusion with passive atelectasis versus infiltrate in the left lung base. This is a new finding compared to 08/08/2019. There is mild central vascular prominence. Dictated on workstation # [id number] Dict: 09/17/19 1736 Trans: 09/17/19 1738 [id number] Interpreted by: GRAYSON COSME MD Electronically signed by: Departure Impression Primary Impression: Edema Qualified Codes: R60.0 - Localized edema Additional Impressions: Cirrhosis Qualified Codes: K74.60 - Unspecified cirrhosis of liver; R18.8 - Other ascites Pulmonary edema Qualified Codes: J81.0 - Acute pulmonary edema Disposition: HOME, SELF-CARE Condition: Stable Departure-Patient Inst. Decision time for Depature: 17:50 Referrals: ASHUTOSH MCNEIL MD (PCP/Family) Primary Care Physician Patient Instructions: Cirrhosis (DC) Add. Discharge Instructions: Keep your scheduled appointments with [facility] for tomorrow. Keep legs elevated. Continue all your routine medications. Return to the emergency department for new, urgent health care needs. All discharge instructions reviewed with patient and/or family. Voiced understanding. Copy Copies To 1: ASHUTOSH MCNEIL MD, AMY ARNP Sep 17, 2019 17:01
[2019-09-17 17:18] LABS: ALBUMIN 2.4 GM/DL (3.2-4.5); CALCIUM 8.3 MG/DL (8.5-10.1); CREATININE SERUM 1.3 MG/DL (0.60-1.30); POTASSIUM 3.5 MMOL/L (3.6-5.0); TOTAL PROTEIN 6.1 GM/DL (6.4-8.2)
[2019-09-17 17:30] LABS: ANISOCYTOSIS MODERATE; EOSINOPHILS % (MANUAL) 2 %; LYMPHOCYTES % (MANUAL) 6 %; MONOCYTES % (MANUAL) 3 %; NEUTROPHILS % (MANUAL) 89 %; POLYCHROMASIA SLIGHT
[2019-09-17 17:31] LABS: BURR CELLS SLIGHT
--- NOTE | 2019-09-17 17:39 | Diagnostic Imaging Report ---
INDICATION: Shortness of breath, history of liver failure. PA and lateral chest obtained at 5:25 p.m. and is compared to 08/08/2019. FINDINGS: The heart is normal in size. There is a cvculjxk-bm-yqccd left pleural effusion with left basilar atelectatic change versus infiltrate. There is no significant right-sided pleural fluid. There is mild central vascular prominence. IMPRESSION: Large left pleural effusion with passive atelectasis versus infiltrate in the left lung base. This is a new finding compared to 08/08/2019. There is mild central vascular prominence. Dictated by: Dictated on workstation # [id number]
[2019-09-17 17:51] LABS: BILIRUBIN,URINE NEGATIVE (NEGATIVE); CLARITY,URINE CLEAR; COLOR,URINE YELLOW; GLUCOSE, URINE (UA) NEGATIVE (NEGATIVE); KETONES,URINE NEGATIVE (NEGATIVE); LEUKOCYTE ESTERASE ,URINE NEGATIVE (NEGATIVE); NITRITE,URINE NEGATIVE (NEGATIVE); PROTEIN,URINE NEGATIVE (NEGATIVE)
[2019-09-17] MEDS ORDERED: FUROSEMIDE 40 MG (LASIX) TAB PO ONE (18:00)
[2019-09-17 18:03] LABS: BACTERIA,URINE TRACE /HPF; RBC,URINE 25-50 /HPF
[2019-09-17 18:17] VITALS: BP 131/72
== END 2019-09-17 18:18 | disposition home or self-care (01) ==
LOC: EDUNIT# 16:07 → ER 16:09
DX: J81.0 Acute pulmonary edema (principal); K74.60 Unspecified cirrhosis of liver; R60.9 Edema, unspecified; E04.9 Nontoxic goiter, unspecified; Z88.0 Allergy status to penicillin; Z80.0 Family history of malignant neoplasm of digestive organs
CPT/HCPCS: 36415; 71046; 80053; 81000; 82150; 83690; 83880; 85007; 85027; 93005

== ENCOUNTER → 2019-09-23 | Outpatient (CLI) | payer MEDICARE, OTHER ==
[~2019-09-23] MED LIST changes: +LACT10SO PO; +[UNRECOGNIZED DRUG - OTHER] PO
--- NOTE | 2019-09-23 17:19 | Diagnostic Imaging Report ---
EXAM: LUMBAR SPINE - 2-3 VIEWS. INDICATION: Low back pain. COMPARISON: CT abdomen and pelvis 06/16/2019. FINDINGS: Compression fracture of L1 resulting in 30% height loss, L2 resulting in 60% height loss, and L3 resulting in 40% height loss. All of these fractures are new since 06/16/2019. The visualized pelvis is intact. Normal alignment. Mild diffuse degenerative endplate changes. Demineralization. IMPRESSION: 1. Compression fractures of L1, L2, and L3, resulting in up to 60% height loss, are new since 06/16/2019. 2. Demineralization. Dictated by: Dictated on workstation # [id number]
== END ==
LOC: RAD 13:28
PROVIDERS: ATTEND Family Medicine
DX: M80.88XA Other osteoporosis with current pathological fracture, vertebra(e), initial encounter for fracture (principal)
CPT/HCPCS: 72100

== ENCOUNTER 2019-09-25 07:55 | Outpatient (RCR) | payer MEDICARE, OTHER ==
[2019-09-25] VITALS (7 sets, daily range): BP systolic 104–119; BP diastolic 34–53
[~2019-09-25 07:55] MED LIST changes: -LACT10SO PO; -[UNRECOGNIZED DRUG - OTHER] PO
[2019-09-25] MEDS ORDERED: FUROSEMIDE 40 MG/4 ML INJ (LASIX) IV NR (08:15)
[2019-09-25] MEDS ORDERED: ACETAMINOPHEN 500 MG TAB (TYLENOL) PO ONE (08:15)
[2019-09-25] MEDS ORDERED: diphenhydrAMINE 50 MG/ML INJ (BENADRYL) IV ONE (08:15)
[2019-09-25] MEDS ORDERED: NS IV 500 ML 500 ML IV SCH (09:15)
[2019-09-25] MEDS ORDERED: FUROSEMIDE 40 MG/4 ML INJ (LASIX) ONE (12:06)
[2019-09-25] MEDS ORDERED: FUROSEMIDE 40 MG/4 ML INJ (LASIX) IVP ONE (12:15)
[2019-09-25 16:46] LABS: HEMOGLOBIN 9.6 G/DL (11.5-16.0)
[2019-09-25] MEDS ORDERED: [UNRECOGNIZED DRUG - OTHER] PO (20:02)
[2019-09-25] MEDS ORDERED: LACT10SO PO (20:02)
== END 2019-09-25 17:00 | disposition home or self-care (01) ==
LOC: LAB 07:55
PROVIDERS: ATTEND Family Medicine
DX: D64.9 Anemia, unspecified (principal)
CPT/HCPCS: 36415; 36430; 85014; 85018; 86850; 86900; 86901; 86920; 96374

== ENCOUNTER → 2019-12-19 | Outpatient (CLI) | payer MEDICARE, OTHER ==
[~2019-12-19] VITALS: Ht 167.7 cm; Wt 79.1 kg
[~2019-12-19] MED LIST changes: +LACT10SO PO; +[UNRECOGNIZED DRUG - OTHER] PO
[2019-12-19 10:59] LABS: INR 1.3 (0.8-1.4); PROTHROMBIN TIME PATIENT 17.1 SEC (12.2-14.7)
[2019-12-19 14:47] LABS: BODY FLUID SOURCE PERITON
[2019-12-19 14:48] LABS: BODY FLUID COLOR YELLOW
[2019-12-19 14:49] LABS: BODY FLUID APPEARENCE MOD BLDY; BODY FLUID RBC COUNT 8000 /uL; BODY FLUID WBC TOTAL COUNT 2500 /uL
[2019-12-19 14:54] LABS: BF OTHER CELLS 6 %; LYMPHOCYTES,BODY FLUID 89 %
--- NOTE | 2019-12-19 16:52 | Diagnostic Imaging Report ---
INDICATION: Ascites. The patient was brought to the procedure room, placed on the table in the supine position. Ultrasound imaging of the abdomen was performed to evaluate appropriate entry site. Left lower quadrant was then prepped and draped in the usual sterile fashion. A small amount of 1% lidocaine was utilized for local anesthesia. Paracentesis catheter was advanced into the left lower quadrant peritoneal space. A total of 3550 mL of fluid was removed. Catheter was withdrawn, hemostasis was obtained using manual compression. The patient tolerated the procedure well and left the department in stable condition. IMPRESSION: Ultrasound-guided paracentesis obtaining approximately 3550 mL of fluid. Dictated by: Dictated on workstation # [id number]
== END ==
LOC: RAD 10:08
PROVIDERS: ATTEND Family Medicine
DX: R18.8 Other ascites (principal); K72.10 Chronic hepatic failure without coma
CPT/HCPCS: 36415; 49083; 85610; 89051

== ENCOUNTER → 2020-01-08 | Outpatient (CLI) | payer MEDICARE, OTHER | LOC: LABNPT 09:00 | PROVIDERS: ATTEND Internal Medicine Gastroenterology | DX: Z20.828 Contact with and (suspected) exposure to other viral communicable diseases (principal) | CPT/HCPCS: 87635 ==

== ENCOUNTER → 2020-01-21 | Outpatient (CLI) | payer MEDICARE, OTHER ==
[2020-01-21 10:30] LABS: BASOPHILS % (AUTO) 1 % (0-10); EOSINOPHILS # (AUTO) 0.1 10^3/uL (0.0-0.3); EOSINOPHILS % (AUTO) 3 % (0-10); HEMATOCRIT 24 % (35-52); HEMOGLOBIN 7.8 G/DL (11.5-16.0); LYMPHOCYTES # (AUTO) 0.4 X 10^3 (1.0-4.0); LYMPHOCYTES % (AUTO) 9 % (12-44); MEAN CORPUSCULAR HEMOGLOBIN 32 PG (25-34); MEAN CORPUSCULAR HGB CONC 32 G/DL (32-36); MEAN CORPUSCULAR VOLUME 100 FL (80-99); MEAN PLATELET VOLUME 9.2 FL (7.4-10.4); MONOCYTES # (AUTO) 0.5 X 10^3 (0.0-1.0); MONOCYTES % (AUTO) 12 % (0-12); NEUTROPHILS # (AUTO) 2.9 X 10^3 (1.8-7.8); NEUTROPHILS % (AUTO) 75 % (42-75); PLATELET COUNT 133 10^3/uL (130-400); RED CELL DISTRIBUTION WIDTH 16.6 % (10.0-14.5); WHITE BLOOD COUNT 3.9 10^3/uL (4.3-11.0)
== END ==
LOC: LAB 10:02
PROVIDERS: ATTEND Nurse Practitioner Family
DX: D64.9 Anemia, unspecified (principal)
CPT/HCPCS: 36415; 82728; 83540; 85025

== ENCOUNTER → 2020-03-24 | Outpatient (CLI) | payer MEDICARE, OTHER ==
--- NOTE | 2020-03-24 12:28 | Diagnostic Imaging Report ---
INDICATION: Routine screening. COMPARISON: 03/11/2019 and 03/06/2018. TECHNIQUE: 2D and 3D bilateral screening mammography was performed with CAD. FINDINGS: Both breasts are heterogeneously dense, limiting the sensitivity of mammography. The parenchymal pattern is stable. No mass or malignant appearing microcalcifications are seen. The axillae are unremarkable. IMPRESSION: No mammographic features suspicious for malignancy are identified. ACR BI-RADS Category 1: Negative. Result letter will be mailed to the patient. Note: At least 10% of breast cancer is not imaged by mammography. Dictated by: Dictated on workstation # [id number]
== END ==
LOC: RAD 09:43
PROVIDERS: ATTEND Nurse Practitioner Family
DX: Z12.31 Encounter for screening mammogram for malignant neoplasm of breast (principal)
CPT/HCPCS: 77063; 77067

== ENCOUNTER → 2021-03-25 | Outpatient (CLI) | payer MEDICARE, OTHER ==
[~2021-03-25] MED LIST changes: -LACT10SO PO; +LACT10SO3 PO; -PANT40TA3 PO; +PANT40TA52 PO
--- NOTE | 2021-03-25 12:20 | Diagnostic Imaging Report ---
Indication: Routine screening. Comparison is made with prior mammogram 03/24/2020 and 03/11/2019. 2-D and 3-D bilateral screening mammography was performed with CAD. Both breasts are heterogeneously dense, limiting the sensitivity of mammography. The parenchymal pattern is stable. No mass or malignant-appearing microcalcifications are seen. Axillae are unremarkable. IMPRESSION: BI-RADS Category 1 No mammographic features suspicious for malignancy are identified. ACR BI-RADS Category 1: Negative. Result letter will be mailed to the patient. Note: At least 10% of breast cancer is not imaged by mammography. Dictated by: Dictated on workstation # [id number]
== END ==
LOC: RAD 10:15
PROVIDERS: ATTEND Nurse Practitioner Family
DX: Z12.31 Encounter for screening mammogram for malignant neoplasm of breast (principal)
CPT/HCPCS: 77063; 77067

== ENCOUNTER → 2021-06-29 | Outpatient (CLI) | payer MEDICARE, OTHER | LOC: LABNPT 08:26 | PROVIDERS: ATTEND Family Medicine | DX: U07.1 COVID-19 (principal) | CPT/HCPCS: 87636 ==

== ENCOUNTER 2021-07-01 12:44 | Outpatient (CLI) | payer MEDICARE, OTHER ==
[~2021-07-01] VITALS: Ht 167.7 cm; Wt 66.7 kg
[2021-07-01 12:35] VITALS: BP 132/57
[2021-07-01] MEDS ORDERED: diphenhydrAMINE 50 MG/ML INJ (BENADRYL) IV PRN (13:30)
[2021-07-01] MEDS ORDERED: BAMLANIVIMAB 700 MG/ETESEVIMAB 1,400 MG IN NS IV ONE ×3 (13:30)
[2021-07-01] MEDS ORDERED: ACETAMINOPHEN 500 MG TAB (TYLENOL) PO PRN (13:30)
[2021-07-01] MEDS ORDERED: EPINEPHrine INJECTION 1 MG/ML AMP IM PRN (13:30)
[2021-07-01] MEDS ORDERED: ONDANSETRON 4 MG/2 ML (SDV) Z0FRAN IV PRN (13:30)
[2021-07-01 13:59] VITALS: BP 136/44
== END 2021-07-01 14:50 | disposition home or self-care (01) ==
LOC: INFUSION 12:44
PROVIDERS: ATTEND Nurse Practitioner Family
DX: U07.1 COVID-19 (principal)

== ENCOUNTER → 2022-03-28 | Outpatient (CLI) | payer MEDICARE, OTHER ==
--- NOTE | 2022-03-28 11:44 | Diagnostic Imaging Report ---
INDICATION: Routine screening. Comparison is made with prior mammogram from 03/25/2021 and 03/24/2020. 2-D and 3-D bilateral screening mammography was performed with CAD. CAD is utilized. The current study was also evaluated with a Computer Aided Detection (CAD) system. Both breasts are heterogeneously dense, limiting the sensitivity of mammography. The peripheral pattern is stable. No mass or malignant-appearing microcalcifications are seen. Axillae are unremarkable. IMPRESSION: BI-RADS Category 2 No mammographic features suspicious for malignancy are identified. ACR BI-RADS Category 2: Benign findings. Result letter will be mailed to the patient. Note: At least 10% of breast cancer is not imaged by mammography. Dictated by: Dictated on workstation # [id number]
== END ==
LOC: RAD 09:51
PROVIDERS: ATTEND Nurse Practitioner Family
DX: Z12.31 Encounter for screening mammogram for malignant neoplasm of breast (principal)
CPT/HCPCS: 77063; 77067

== ENCOUNTER 2022-07-12 22:56 | Emergency (ER) | payer MEDICARE, OTHER ==
[2022-07-13 00:18] LABS: BASOPHILS % (AUTO) 1 % (0-10); EOSINOPHILS # (AUTO) 0.1 10^3/uL (0.0-0.3); EOSINOPHILS % (AUTO) 4 % (0-10); HEMATOCRIT 30 % (35-52); LYMPHOCYTES # (AUTO) 0.4 10^3/uL (1.0-4.0); LYMPHOCYTES % (AUTO) 12 % (12-44); MEAN CORPUSCULAR HEMOGLOBIN 30 pg (25-34); MEAN CORPUSCULAR HGB CONC 33 g/dL (32-36); MEAN CORPUSCULAR VOLUME 89 fL (80-99); MONOCYTES # (AUTO) 0.4 10^3/uL (0.0-1.0); MONOCYTES % (AUTO) 11 % (0-12); NEUTROPHILS # (AUTO) 2.5 10^3/uL (1.8-7.8); NEUTROPHILS % (AUTO) 71 % (42-75); WHITE BLOOD COUNT 3.5 10^3/uL (4.3-11.0)
--- NOTE | 2022-07-13 00:21 | ED Lower Extremity ---
General Chief Complaint: Lower Extremity Stated Complaint: POSS BLOOD CLOT Nursing Triage Note: PT ARRIVAL TO ER VIA PRIVATE VEHICLE FROM HOME WITH COMPLAINT OF BRUISE TO LEFT OUTER LOWER LEG. PT HIT IT ON CHAIR, AND WAS WORRIED ABOUT POSSIBLY GETTING A BLOOD CLOT. Source: patient History of Present Illness Date Seen by Provider: Jul 12, 2022 Time Seen by Provider: 23:15 Initial Comments PT ARRIVES VIA POV FROM HOME AROUND 2145 TONIGHT, SHE ACCIDENTALLY RAN INTO A METAL "ICE CREAM CHAIR" AND HIT HER LEFT LOWER LEG ON THE CHAIR SHE HAS A BRUISE TO THE AREA AND IS WORRIED THAT SHE HAS A BLOOD CLOT FROM IT SHE HAS NO SWELLING TO THE AREA OR HER LEG OR ANKLE OR FOOT NO PARESTHESIAS OR MOTOR DEFICITS NO SIGNIFICANT PAIN TO THE AREA SHE DOES NOT HAVE EXCESSIVE BRUISING OR BLEEDING FROM OTHER SITES PT HAS CHRONIC LIVER FAILURE, AND IS BEING EVALUATED FOR A LIVER TRANSPLANT SHE ALSO HAS STAGE 3B KIDNEY FAILURE SHE HAS BEEN DX WITH AUTOIMMUNE HEPATITIS SHE HAS CHRONIC ANEMIA--STATES HER HEMOGLOBIN IS USUALLY AROUND 10, AND HER PLATELETS ARE ALWAYS LOW--LAST TIME WAS AROUND 100,000 IN APRIL, BUT HAVE BEEN LOW 60,000 IN THE PAST SHE STATES HER LAST PROTIME WAS 13.9 AND INR 1.2. SHE IS NOT ON ASPIRIN OR ANY BLOOD THINNERS STATES SHE ONLY TAKES EXTRA STRENGTH TYLENOL FOR PAIN --HAS NOT TAKEN ANY T ONIGHT PCP: DR. HUCTHINS GOES TO FOR LIVER DISEASE Allergies and Home Medications Allergies Coded Allergies: Penicillins (Verified Adverse Reaction, Mild, N/V, 07/01/21) Patient Home Medication List Home Medication List Reviewed: Yes Acetaminophen (Acetaminophen) 500 Mg Tablet, 1,000 MG PO Q8H PRN for PAIN-MILD (1-4), (Reported) Entered as Reported by: MICHELLE REYES on 06/17/19 1022 Azathioprine (Imuran) 50 Mg Tablet, 100 MG PO 0, (Reported) Entered as Reported by: SANDRA CALDERON on 10/16/18 1056 Cyanocobalamin (Vitamin B-12) (Vitamin B12) 2,500 Mcg Tablet, 2,500 MCG PO DAILY, (Reported) Entered as Reported by: MICHELLE REYES on 06/17/19 1028 Ergocalciferol (Vitamin D2) (Vitamin D2) 400 Unit Tablet, 400 UNIT PO DAILY, (Reported) Entered as Reported by: MICHELLE REYES on 06/17/19 1028 Furosemide (Lasix) 20 Mg Tablet, 40 MG PO DAILY, (Reported) Entered as Reported by: SANDRA CALDERON on 10/16/18 1056 Lactulose (Lactulose) 10 Gm/15 Ml Solution, 10 ML PO TID, (Reported) Entered as Reported by: KATIE SALAZAR on 09/25/192001 Levothyroxine Sodium (Levothyroxine Sodium) 137 Mcg Tablet, 137 MCG PO DAILY, (Reported) Entered as Reported by: SANDRA CALDERON on 10/16/18 1056 Pantoprazole Sodium (Protonix) 40 Mg Tablet.dr, 40 MG PO DAILY, (Reported) Entered as Reported by: MICHELLE REYES on 06/17/19 1019 Spironolactone (Spironolactone) 50 Mg Tablet, 100 MG PO DAILY, (Reported) Entered as Reported by: SANDRA CALDERON on 10/16/18 1056 [Codeine Hcl] , 5 MG PO TID PRN for PAIN, (Reported) Entered as Reported by: KATIE SALAZAR on 09/25/192001 Review of Systems Constitutional: no symptoms reported Musculoskeletal: see HPI Skin: see HPI Psychiatric/Neurological: No Symptoms Reported Past Kvkcpwv-Dfcrxg-Bkckap Hx Patient Social History Tobacco Use?: No Use of E-Cig and/or Vaping dev: No Substance use?: No Alcohol Use?: No Pt feels they are or have been: No Immunizations Up To Date Tetanus Booster (TDap): Unknown Influenza Vaccine Up-to-Date: Yes; Up-to-Date Seasonal Allergies Seasonal Allergies: No Past Medical History Surgeries: Yes (LIVER BX ; ESOPHAGEAL BANDING) Gallbladder, Thyroidectomy Respiratory: No Currently Using CPAP: No Cardiac: No Neurological: No Reproductive Disorders: No 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 History: Menopausal Sexually Transmitted Disease: No Genitourinary: Yes (STAGE 3B KIDNEY FAILURE--NO DIALYSIS) Renal Failure Gastrointestinal: Yes (ESOPAGEAL BLEEDING;AUTOIMMUNE HEPATITIS; CHRONIC LIVER FAILURE) Liver Disease/Jaundice, Esophageal Varices, Hepatitis, Hiatal Hernia, Cirrhosis, Gall Bladder Disease Musculoskeletal: No Endocrine: Yes (GOITERS) Hypothyroidsim HEENT: No Hearing Impairment: Denies Cancer: No Psychosocial: No Integumentary: No Blood Disorders: Yes (ANEMIA; THROMBOCYTOPENIA; ) Adverse Reaction/Blood Tranf: No Family Medical History Colon cancer G8 SISTER MS 19 FATHER G8 SISTER Cancer Physical Exam Vital Signs Vital Signs - First Documented 07/12/22 23:07 Temp 36.6 Pulse 81 Resp 20 B/P (MAP) 149/83 (105) Pulse Ox 99 O2 Delivery Room Air Capillary Refill : Less Than 3 Seconds Height, Weight, BMI Height: 5'6.00" Weight: 187lbs. 4.0oz. [id number]; 28.12 BMI Method:Stated General Appearance: WD/WN, no apparent distress, other (ANXIOUS) Hips: left hip normal inspection Legs: left leg other (HAS 2 1/2 X 3 CM BRUISE TO LEFT LOWER LEG, JUST LATERAL OF MIDLINE. NO SWELLING. MILD TENDERNESS TO BRUISE. MOTOR/SENSORY/VASCULAR INTACT. WALKS WITHOUT DIFFICULTY. 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 NO PETECHIAE OR PURUPURA.) Progress/Results/Core Measures Results/Orders Lab Results Laboratory Tests Test 07/12/22 23:51 Range/Units White Blood Count 3.5 L 4.3-11.0 10^3/uL Red Blood Count 3.38 L 3.80-5.11 10^6/uL Hemoglobin 10.0 L 11.5-16.0 g/dL Hematocrit 30 L 35-52 % Mean Corpuscular Volume 89 80-99 fL Mean Corpuscular Hemoglobin 30 25-34 pg Mean Corpuscular Hemoglobin Concent 33 32-36 g/dL Red Cell Distribution Width 15.7 H 10.0-14.5 % Platelet Count 61 L 130-400 10^3/uL Mean Platelet Volume 11.0 9.0-12.2 fL Immature Granulocyte % (Auto) 1 % Neutrophils (%) (Auto) 71 42-75 % Lymphocytes (%) (Auto) 12 12-44 % Monocytes (%) (Auto) 11 0-12 % Eosinophils (%) (Auto) 4 0-10 % Basophils (%) (Auto) 1 0-10 % Neutrophils # (Auto) 2.5 1.8-7.8 10^3/uL Lymphocytes # (Auto) 0.4 L 1.0-4.0 10^3/uL Monocytes # (Auto) 0.4 0.0-1.0 10^3/uL Eosinophils # (Auto) 0.1 0.0-0.3 10^3/uL Basophils # (Auto) 0.0 0.0-0.1 10^3/uL Immature Granulocyte # (Auto) 0.0 0.0-0.1 10^3/uL Prothrombin Time 16.2 H 12.2-14.7 SEC INR Comment 1.2 0.8-1.4 Activated Partial Thromboplast Time 38 H 24-35 SEC Sodium Level 138 135-145 MMOL/L Potassium Level 3.4 L 3.6-5.0 MMOL/L Chloride Level 106 98-107 MMOL/L Carbon Dioxide Level 23 21-32 MMOL/L Anion Gap 9 5-14 MMOL/L Blood Urea Nitrogen 19 H 7-18 MG/DL Creatinine 1.11 0.60-1.30 MG/DL Estimat Glomerular Filtration Rate 54 BUN/Creatinine Ratio 17 Glucose Level 97 70-105 MG/DL Calcium Level 8.5 8.5-10.1 MG/DL Corrected Calcium 9.2 8.5-10.1 MG/DL Total Bilirubin 1.7 H 0.1-1.0 MG/DL Aspartate Amino Transf (AST/SGOT) 39 H 5-34 U/L Alanine Aminotransferase (ALT/SGPT) 18 0-55 U/L Alkaline Phosphatase 109 40-136 U/L Total Protein 6.6 6.4-8.2 GM/DL Albumin 3.1 L 3.2-4.5 GM/DL My Orders Orders - NICHOLE MATHEW DO Cbc With Automated Diff (07/12/22 23:29) Comprehensive Metabolic Panel (07/12/22 23:29) Protime With Inr (07/12/22 23:29) Partial Thromboplastin Time (07/12/22 23:29) Tibia/Fibula, Left, 2 Views (07/12/22 23:29) Vital Signs/I&O 07/12/22 12/14/22 23:07 00:45 Temp 36.6 36.6 Pulse 81 81 Resp 20 20 B/P (MAP) 149/83 (105) 149/83 Pulse Ox 99 99 O2 Delivery Room Air Room Air Blood Pressure Mean: 105 Progress Progress Note : Progress Note REASSURANCE GIVEN TO PT DISCUSSED TEST RESULTS, ANTICIPATED COURSE, SYMPTOMATIC TREATMENT, NEED FOR FOLLOW UP AND RETURN PRECAUTIONS. Diagnostic Imaging Comments XRAYS LEFT TIB-FIB--NO ACUTE PROCESS, PENDING RADIOLOGIST REVIEW Reviewed: Reviewed by Me Departure Impression Primary Impression: Contusion of left lower leg, initial encounter Additional Impressions: Pancytopenia Chronic liver disease and cirrhosis Chronic kidney disease MILDLY ELEVATED PROTIME AND PTT Disposition: HOME, SELF-CARE Condition: Stable Departure-Patient Inst. Decision time for Depature: 00:40 Referrals: ASHUTOSH HUTCHINS MD (PCP/Family) Primary Care Physician Patient Instructions: Anemia, Possibly From Low Iron, Adult ED, Bleeding Precautions, Minor Contusion ED, Platelet Count Test Add. Discharge Instructions: ICE TO BRUISED AREA AT 20 MINUTE INTERVALS CONTINUE YOUR REGULAR MEDICATIONS PRESCRIBED FOLLOW UP WITH DR. HUTCHINS IN THE NEXT FEW DAYS FOR FURTHER CARE--CALL IN THE MORNING TO SCHEDULE AN APPOINTMENT RETURN TO ER IF YOUR SYMPTOMS WORSEN All discharge instructions reviewed with patient and/or family. Voiced understanding. Images Extremities-Lower 1 - Ecchymosis NICHOLE MATHEW DO Jul 13, 2022 00:21
[2022-07-13 00:28] LABS: PLATELET COUNT 61 10^3/uL (130-400)
[2022-07-13 00:31] LABS: INR 1.2 (0.8-1.4); PROTHROMBIN TIME PATIENT 16.2 SEC (12.2-14.7)
[2022-07-13 00:45] VITALS: BP 149/83
[2022-07-13 00:45] LABS: ALBUMIN 3.1 GM/DL (3.2-4.5); BILIRUBIN,TOTAL 1.7 MG/DL (0.1-1.0); CALCIUM 8.5 MG/DL (8.5-10.1); CREATININE SERUM 1.11 MG/DL (0.60-1.30); POTASSIUM 3.4 MMOL/L (3.6-5.0); TOTAL PROTEIN 6.6 GM/DL (6.4-8.2)
--- NOTE | 2022-07-13 08:08 | Diagnostic Imaging Report ---
EXAMINATION: Left tibia and fibular radiographs, 2 views, 4 images. COMPARISON: None. HISTORY: 66-year-old female, left tibia and fibula pain. FINDINGS: There is productive bone formation in the expected distribution of the deep deltoid ligament most likely relating to sequela of prior injury. There is degenerative type enthesopathy at the patellar tendon insertion and origin. There is severe patellofemoral compartment joint space loss. There is no identified large knee joint effusion. There is no identified acute fracture. There is no tibiotalar joint effusion. There is mild degenerative type enthesopathy at the Achilles tendon insertion. There is no identified radiopaque foreign body. IMPRESSION: 1. No identified acute bony abnormality of the left tibia or fibula. Dictated by: Dictated on workstation # [id number]
== END 2022-07-13 00:48 | disposition home or self-care (01) ==
LOC: EDUNIT# 22:56 → ER 22:58
DX: S80.12XA Contusion of left lower leg, initial encounter (principal); D61.818 Other pancytopenia; N18.32 Chronic kidney disease, stage 3b; K74.60 Unspecified cirrhosis of liver; R79.1 Abnormal coagulation profile; Z87.19 Personal history of other diseases of the digestive system; W22.8XXA Striking against or struck by other objects, initial encounter
CPT/HCPCS: 36415; 73590; 80053; 85025; 85610; 85730

== ENCOUNTER → 2023-04-04 | Outpatient (CLI) | payer MEDICARE, OTHER ==
[~2023-04-04] MED LIST changes: +POTA-330 PO; -POTA-51 PO
--- NOTE | 2023-04-04 15:33 | Diagnostic Imaging Report ---
INDICATION: Routine screening. Comparison is made with prior mammogram from 03/28/2022 and 03/25/2021. 2-D and 3-D bilateral screening mammography was performed with CAD. Both breast are heterogeneously dense, limiting the sensitivity of mammography. The parenchymal pattern appears stable. No mass or malignant-appearing microcalcifications are seen. There are benign parenchymal and vascular calcifications. Axillae are unremarkable. IMPRESSION: No mammographic features suspicious for malignancy are identified. ACR BI-RADS Category 2: Benign findings. Result letter will be mailed to the patient. Note: At least 10% of breast cancer is not imaged by mammography. BI-RADS Category 2 Dictated by: Dictated on workstation # [id number]
== END ==
LOC: RAD 09:26
DX: Z12.31 Encounter for screening mammogram for malignant neoplasm of breast (principal)
CPT/HCPCS: 77063; 77067

== ENCOUNTER → 2023-05-26 | Outpatient (CLI) | payer MEDICARE, OTHER ==
[~2023-05-26] MED LIST changes: +GADOTERATE 0.5 MMOL/ML (CLARISCAN) 15 ML VIAL IV ONE
--- NOTE | 2023-05-26 11:58 | Diagnostic Imaging Report ---
PROCEDURE: MR imaging abdomen with and without contrast. TECHNIQUE: Multiplanar, multisequence MR imaging of the abdomen was performed with and without contrast. INDICATION: History of cirrhosis. Evaluate for hepatocellular carcinoma. Abnormal findings seen on outside imaging. COMPARISON: CT abdomen on 05/20/2022. FINDINGS: The liver has a shrunken and nodular appearance. Innumerable regenerative nodules are seen throughout the liver. A small focus of enhancement is seen in the right hepatic lobe measuring 0.6 cm, which corresponds to the area previously noted on CT. This measured approximately 0.8 cm on the prior CT. No new enhancing lesions are seen in the liver. The portal vein is patent. The gallbladder is surgically absent. Moderate volume of ascites is seen in the upper abdomen. The spleen is enlarged. No focal splenic lesions. The pancreas, adrenal glands, and kidneys have a stable appearance without acute abnormality. The included loops of bowel are nondilated. There is trace left-sided pleural effusion. The heart size is normal. IMPRESSION: 1. Stable nonspecific focus of enhancement within the right hepatic lobe. This does not appear particularly aggressive and is favored to represent benign etiology. Recommend continued attention on follow-up. 2. Cirrhotic morphology of the liver with innumerable regenerative nodules throughout the liver. 3. Stigmata of portal hypertension with ascites and splenomegaly. The portal vein appears patent. Dictated by: Dictated on workstation # [id number]
== END ==
LOC: RAD 09:15
PROVIDERS: ATTEND Internal Medicine Gastroenterology
DX: Z01.818 Encounter for other preprocedural examination (principal); K74.60 Unspecified cirrhosis of liver; K76.89 Other specified diseases of liver; R16.1 Splenomegaly, not elsewhere classified; K76.6 Portal hypertension; Z76.82 Awaiting organ transplant status
CPT/HCPCS: 74183